=== PATIENT | male | born 1950 | race Caucasian/White ===

== ENCOUNTER 2019-11-05 13:07 | Outpatient (CLI) | payer OTHER, SELFPAY ==
--- NOTE | ~2019-11-05 | XR_ITS ---
EXAMINATION: XR chest 2V EXAM DATE: 11/05/2019 13:50 INDICATION: Shortness of breath. TECHNIQUE: Frontal and lateral projections of the chest obtained and reviewed. Comparison is made to prior examination from 09/01/2019. FINDINGS: The lungs are clear. There are no pleural effusions. The cardiomediastinal silhouette is within normal limits. There is no pneumothorax suspected. Lower thoracic diffuse idiopathic skeleta l hyperostosis. IMPRESSION: No acute cardiopulmonary findings. Reviewed, dictated and finalized at location A. BOX FIXER
--- NOTE | ~2019-11-05 | NM_ITS ---
EXAMINATION: NM lung vent and perfusion DATE: 11/05/2019 13:55 INDICATION: Shortness of breath. TECHNIQUE: The patient breathed 17.3 mCi xenon-133 for ventilation images. 5.2 mCi Tc-99m MAA was adm inistered intravenously for perfusion images. Scintigraphic images of the chest were obtained. COMPARISON: Chest 2 views 11/05/2019 FINDINGS: The single breath ventilation image demonstrates small defects in the upper and lower lobes. Ventilat ion washout images show no retention. Perfusion images show small defects in apicoposterior segment left upper lobe and superior segment left lower lobe. ] IMPRESSION: 1. Low probability for pulmonary embolism. Reviewed, dictated and finalized at location A. N LIFEGUARD
== END 2019-11-05 13:08 | disposition home or self-care (01) ==
LOC: ANHIMG 13:09
PROVIDERS: PCP Family Medicine; Visit Provider Internal Medicine Critical Care Medicine
DX: R06.02 Shortness of breath (principal); J98.4 Other disorders of lung
CPT/HCPCS: 71046; 78582; A9540; A9558

== ENCOUNTER 2019-11-16 11:52 | Outpatient (CLI) | payer OTHER, SELFPAY ==
--- NOTE | ~2019-11-16 | XR_ITS ---
EXAMINATION: XR chest 2V DATE: 11/16/2019 12:18 INDICATION: Shortness of breath TECHNIQUE: PA and lateral views of the chest were obtained. COMPARISON: Chest radiograph dated 11/05/2019 FINDINGS: The lungs remain clear with no focal airspace opacities, pulmonary edema, pleural effusion or pneumot horax. The cardiomediastinal silhouette is normal. Visualized bones and soft tissues are unremarkable . IMPRESSION: 1. No acute cardiopulmonary disease. Reviewed, dictated and finalized at location A. UCTION ASSEMBLY OPERATOR
== END 2019-11-16 11:53 | disposition home or self-care (01) ==
LOC: ANHIMG 11:54
PROVIDERS: PCP Family Medicine; Visit Provider Physician Assistant
DX: R06.02 Shortness of breath (principal); R05 Cough; R50.9 Fever, unspecified
CPT/HCPCS: 71046

== ENCOUNTER 2020-03-02 00:33 | Outpatient (CLI) | payer OTHER, SELFPAY ==
[2020-03-02 17:43] LABS: SARS-CoV-2 RNA PCR Negative
== END 2020-03-02 00:34 | disposition home or self-care (01) ==
LOC: ANHCOVIDDT 00:33
PROVIDERS: PCP Family Medicine; Visit Provider Specialist
DX: Z01.818 Encounter for other preprocedural examination (principal); Z11.59 Encounter for screening for other viral diseases
CPT/HCPCS: 87635; C9803; U0003

== ENCOUNTER 2020-03-04 05:39 | Day surgery (SDC) | payer OTHER, SELFPAY ==
[2020-03-03 15:32] VITALS: BMI 47.5
--- NOTE | 2020-03-04 | ECHO_ITS ---
Patient Info Name: Sharif Todd Age: 69 years : 1950 Gender: Male Ht: 71 in Wt: 340 lbs BSA: 2.86 m2 HR: 76 bpm BP: 216 / 88 mmHg Heart Rhythm: Sinus Rhythm Technical Quality: Good Exam Date: 03/04/2020 10:55 AM Exam Location: [facility] [facility]am Room: ANESTHESIA Patient Status: Outpatient Admit Date: 03/04/2020 Staff Ordering Physician: Kaushik Field MD Nailing Machine Operator Automatic: Emiliana Davey RDCS Attending Provider: Kaushik Field MD Referring Physician: Emir FOX; Exam Type: CA echo transesophageal Study Info Indications - AORTIC VALVE REGURGITATION Complete two-dimensional, color flow and Doppler transesophageal study is performed. Complications No complication. Procedure Details Transesophageal echocardiogram was performed easily and without complication following or pharyngeal benzocaine spray and sedation per the anesthesia service. Summary 1. Transesophageal echocardiogram was performed easily and without complication following or pharyngeal benzocaine spray and sedation per the anesthesia service. 2. No complication. 3. Left ventricular chamber dimension is normal. 4. Systolic contractility is normal. 5. The aortic valve is normal. 6. There is mild to moderate aortic valve regurgitation. 7. Central jet of aortic regurgitation which appears to be directed at the anterior mitral valve leaflet and is [id number] in severity. 8. In no view does the aortic regurgitation appear to be severe. Left Ventricle Left ventricular chamber dimension is normal. Left ventricular systolic function is Empty with an ejection fraction by Biplane Method of Discs of Empty. Systolic contractility is normal. Right Ventricle Right ventricular chamber dimension is normal. Left Atria Left atrial chamber dimension is mildly enlarged. Right Atria Right atrial chamber dimension is normal. Atrial Septum Intact interatrial septum visualized by color flow imaging. Aortic Valve The aortic valve is normal. There is mild to moderate aortic valve regurgitation. Central jet of aortic regurgitation which appears to be directed at the anterior mitral valve leaflet and is [id number] in severity. In no view does the aortic regurgitation appear to be severe. Pulmonic Valve The pulmonic valve is not well visualized. Mitral Valve The mitral valve has normal leaflets. There is trace mitral valve regurgitation. Tricuspid Valve The tricuspid valve leaflets are normal. Pericardium/Pleural The pericardium appears normal. Inferior Vena Cava Not well visualized inferior vena cava with Empty collapse upon inspiration consistent with Empty right atrial pressure, Empty. Aorta The aortic root size at the sinus of Valsalva is normal. Report Signatures
[2020-03-04 09:59] LABS: Hematocrit 43.3 % (42.0-52.0); Hemoglobin 14.8 g/dL (14.0-18.0); Mean Corpuscular HGB Conc 34.2 g/dl (32-36); Mean Corpuscular Hemoglobin 28.7 pg (26-34); Mean Corpuscular Volume 84.1 fl (80-100); Mean Platelet Volume 10.2 fl (7.4-10.4); Platelet Count Result 215 k/mm3 (150-375); Red Blood Count 5.15 M/mm3 (4.6-6.20); Red Cell Distribution Width 13.5 % (11.5-14.5); White Blood Count 5.4 K/mm3 (4.5-10.0)
[2020-03-04 10:11] LABS: Blood Urea Nitrogen 21 mg/dL (9-20); Calcium 9.6 mg/dL (8.4-10.2); Carbon Dioxide 29 mmol/L (22-30); Chloride 102 mmol/L (98-107); Estimated CRCL calculation 134 ml/min; Estimated Glomerular Filt Rate > 60; Glucose 171 mg/dL (75-110); Potassium 3.5 mmol/L (3.4-5.0); Sodium 139 mmol/L (137-145)
[2020-03-04 10:15] VITALS: BP 190/73; PULSE 77; RESP 23; TEMP 37.2; O2SAT 97
--- NOTE | 2020-03-04 10:20 | SUR.PREOP ---
0930-pt presents to the [facility] for a EMA with ANES. PIV started and labs obtained and sent per order. No distress noted. Questions answered and verbalized understanding. Consent signed. Will continue to monitor.
--- NOTE | 2020-03-04 11:07 | WPDANESEPPF ---
Anes - Initial Pre Proc Eval Procedure: Operation Date: 03/04/20 11:00 Proposed Procedures p Trans Esophageal Echo - Kaushik Field MD Date/Time: 03/04/20 11:07 Surgeon: Kaushik Field MD Pre Op Diagnosis: Aortic Valve Regurgitation Patient Data Age: 69 Gender: M Height: 1.8 m Weight: 154.5 kg Last Vital Signs Temp 37.2 C 03/04/20 10:15 Pulse 77 03/04/20 10:15 Resp 23 H 03/04/20 10:15 BP 190/73 H 03/04/20 10:15 Pulse Ox 97 03/04/20 10:15 Allergies Allergy/AdvReac Type Severity Reaction Status Date / Time clarithromycin Allergy Unknown Itching Verified 11/16/19 11:07 Iodinated Contrast Media Allergy Unknown Itching Verified 11/16/19 11:07 iodine Allergy Unknown Itching Verified 11/16/19 11:07 ioversol Allergy Unknown Itching Verified 11/16/19 11:07 Contrast Media Allergy Unknown Itching Uncoded 11/16/19 11:07 Home Medications Medication Instructions Recorded Confirmed Type Daily Multivitamin 1 tablet PO DAILY 08/10/19 03/03/20 History ibuprofen 800 mg PO BID PRN 08/10/19 03/03/20 History chlorthalidone 25 mg tablet 12.5 mg PO DAILY #45 tablet 09/07/19 03/03/20 Rx pantoprazole 40 mg tablet,delayed 40 mg PO QAM #90 tablet 10/02/19 03/03/20 Rx release olmesartan 40 mg tablet 40 mg PO DAILY 11/09/19 03/03/20 History sertraline 50 mg tablet 50 mg PO DAILY #90 tablet 12/01/19 03/03/20 Rx metformin 500 mg tablet,extended 2,000 mg PO DAILY #120 tablet 12/30/19 03/03/20 Rx release 24 hr potassium chloride 20 mEq oral 20 meq PO DAILY #30 each 01/20/20 03/03/20 Rx packet metoprolol succinate 50 mg 50 mg PO DAILY #60 tablet 02/10/20 03/03/20 Rx tablet,extended release 24 hr eplerenone 50 mg tablet 100 mg PO DAILY #60 tablet 02/19/20 03/03/20 Rx nifedipine 30 mg PO DAILY 03/03/20 03/03/20 History Laboratory Tests 03/04/20 03/04/20 09:50 09:50 WBC 5.4 K/mm3 K/mm3 (4.5-10.0) RBC 5.15 M/mm3 M/mm3 (4.6-6.20) Hgb 14.8 g/dL g/dL (14.0-18.0) Hct 43.3 % % (42.0-52.0) MCV 84.1 fl fl (80-100) MCH 28.7 pg pg (26-34) MCHC 34.2 g/dl g/dl (32-36) RDW 13.5 % % (11.5-14.5) Plt Count 215 k/mm3 k/mm3 (150-375) MPV 10.2 fl fl (7.4-10.4) Sodium 139 mmol/L mmol/L (137-145) Potassium 3.5 mmol/L mmol/L (3.4-5.0) Chloride 102 mmol/L mmol/L (98-107) Carbon Dioxide 29 mmol/L mmol/L (22-30) BUN 21 mg/dL H mg/dL (9-20) Creatinine 0.70 mg/dL mg/dL (0.7-1.3) Estim Creat Clear Calc 134 ml/min ml/min Estimated GFR > 60 (59 - ) Glucose 171 mg/dL H mg/dL (75-110) Calcium 9.6 mg/dL mg/dL (8.4-10.2) Patient hx anesthesia problems: none Family hx anesthesia problems: none [facility] Past Medical History Medical History (Updated 11/23/19 @ 10:54 by Anastasia Schaefer PA-C) CAD (coronary artery disease) Cough DDD (degenerative disc disease), lumbar Depression Diverticulosis of intestine, part unspecified, without perforation or abscess with bleeding DM neuro manif type II Essential (primary) hypertension Hx of myocardial infarction Hypertensive heart disease Microalbuminuria due to type 2 diabetes mellitus Morbid obesity with BMI of 50.0-59.9, adult Nonerosive esophageal reflux disease Schatzki's ring Type 2 diabetes mellitus with hyperglycemia Venous insufficiency of both lower extremities Surgical History Surgical History S/P carpal tunnel release Status post arthroscopy of left knee Status post right rotator cuff repair Social History Social History (Updated 11/16/19 @ 11:08 by Melina Robles) Smoking status: Never smoker Second hand tobacco smoke exposure: No Alcohol intake: never Substance use: never Substance use type: does not use Gender identity (if verbalized by the patient): Male Anes - Eval Final PreProcedure Day of Procedur
--- NOTE | 2020-03-04 11:33 | WPDCARDPROC ---
Cardiac Cath Procedure Note Date of procedure:: 03/04/20 Performing physician:: Kaushik Field MD Indication:: Evaluation of aortic valve regurgitation Brief clinical history:: This is a 69-year-old patient followed in the office for significant hypertension. On a recent office visit he was found to have a diastolic murmur compatible with aortic regurgitation. Transthoracic ECHO has suggested that his aortic regurgitation is possibly severe. For further evaluation of this I have recommended a esophageal echocardiogram Procedure Procedure performed:: Transesophageal echocardiogram Sedation/Medication given:: Sedation per the anesthesia service Estimated blood loss:: No blood loss Procedure note:: Patient was in the postanesthesia care unit per the Anesthesiology Service. He was in the supine position and or pharyngeal benzocaine was used for topical anesthesia. Following this he was sedated by the Anesthesia Service and the esophageal echocardiogram was carried out uneventfully. The esophagus was easily intubated and EMA was carried out uneventfully. Following this the probe was removed as was the bite block. He was observed in recovery to regain normal responsiveness and will be taken to the [facility] for full recovery. Procedure was uneventful. Findings:: The left atrium dimension is slightly enlarged. The mitral valve leaflets are normal in appearance. There appears to be a trivial jet of mitral regurgitation by color Doppler. The left ventricle is mildly hypertrophied and of normal dimension contractility is adequate and all segments with a visualized ejection fraction of 50-55%. The aortic valve is a normal-appearing trileaflet structure which is thin and pliable. The aortic root is not enlarged. Color Doppler interrogation of the aortic valve demonstrates a central jet of aortic regurgitation which appears to be somewhat eccentrically directed at the anterior mitral valve leaflet. Multiple projections were taken to assess this jet and a either appears to be mild or moderate. In no view did appear to be more than moderate. The right-sided chambers are unremarkable in appearance the tricuspid valve looks normal the pulmonic valve is difficult to visualize. There is no pericardial fluid. The interatrial septum is intact with no color Doppler evidence of shunting. Conclusion:: Anatomically normal trileaflet aortic valve with [id number] aortic regurgitation. The jet appears to be somewhat eccentrically directed at the anterior mitral valve leaflet but in no few appears to be severe Normal left ventricular size and contractility Trivial mitral regurgitation Kaushik Field MD [facility]
[2020-03-04 11:35] VITALS: BP 179/62; PULSE 67; RESP 14; O2SAT 96
[2020-03-04 11:45] VITALS: BP 176/68; PULSE 65; RESP 15; O2SAT 95
[2020-03-04 12:00] VITALS: BP 191/67; PULSE 67; RESP 14; O2SAT 96
--- NOTE | 2020-03-04 12:08 | SUR.OPER ---
Please see ANES note for medications and vitals. Thank you!
[2020-03-04 12:15] VITALS: BP 200/70; PULSE 68; RESP 18; O2SAT 96
[2020-03-04 12:30] VITALS: BP 195/72; PULSE 66; RESP 16; O2SAT 98
--- NOTE | 2020-03-04 13:50 | SUR.PHASEII ---
1300-pt given D/C orders and instructions. Questions answered and verbalized understanding. PIV removed intact. Taken via wheelchair to waiting vehicle. No distress noted or verbalized at time of departure.
== END 2020-03-04 13:00 | disposition home or self-care (01) ==
PROVIDERS: PCP Family Medicine; Visit Provider Specialist
PROC: (CPT 93312; principal; 2020-03-04 11:00)
DX: I35.1 Nonrheumatic aortic (valve) insufficiency (principal); I25.10 Atherosclerotic heart disease of native coronary artery without angina pectoris; I10 Essential (primary) hypertension; I25.2 Old myocardial infarction; R80.8 Other proteinuria; E11.9 Type 2 diabetes mellitus without complications; I87.2 Venous insufficiency (chronic) (peripheral); E66.01 Morbid (severe) obesity due to excess calories; Z68.42 Body mass index [BMI] 45.0-49.9, adult; Z79.84 Long term (current) use of oral hypoglycemic drugs
CPT/HCPCS: 36415; 80048; 85027; 93312; 93320; 93325; J2704; J7040

== ENCOUNTER 2020-03-31 10:26 | Outpatient (CLI) | payer OTHER, SELFPAY ==
[2020-03-31 10:50] LABS: Add Urine Microscopic? YES; Appearance Urine Clear (Clear); Bacteria Urine Trace /hpf; Bilirubin Urine Negative (Negative); Blood Urine 1+ (Negative); Color Urine Yellow (Yellow); Glucose Urine UA 3+ mg/dL (Negative); Ketones Urine Negative (Negative); Leukocyte Esterase Ur 3+ LEU/UL (NEGATIVE); Mucus Urine Rare /lpf; Nitrate Urine Negative (Negative); Protein Urine 2+ mg/dL (Negative); Specific Grav Ur 1.016 (1.001-1.035); Squamous Epithelial Cell Urine Occasional /hpf (Few); WBC Urine >75 /hpf (0-3)
== END 2020-03-31 10:27 | disposition home or self-care (01) ==
PROVIDERS: PCP Family Medicine; Visit Provider Physician Assistant
DX: N39.0 Urinary tract infection, site not specified (principal)
CPT/HCPCS: 81001; 87077; 87086; 87088; 87186

== ENCOUNTER 2020-04-09 21:44 | Inpatient (IN) | payer OTHER, SELFPAY ==
--- NOTE | ~2020-04-09 | US_ITS ---
EXAMINATION:US venous doppler LE BI INDICATION:Elevated d-dimer TECHNIQUE: Multiple grayscale, color flow and Doppler images of the bilateral lower extremity deep ve nous systems were obtained and reviewed. COMPARISON:12/28/2016 FINDINGS: The common femoral, superficial femoral and popliteal veins demonstrate normal respiratory variation, augmentation and compressibility. Color flow is also seen within the posterior tibial, pe roneal, greater saphenous and profunda veins. IMPRESSION: 1: No lower extremity deep venous thrombosis. Reviewed, dictated and finalized at location B.
--- NOTE | ~2020-04-09 | NM_ITS ---
EXAMINATION: NM pulmonary perfusion DATE: 04/11/2020 10:49 INDICATION: Chest pain and shortness of breath. Elevated d-dimer. TECHNIQUE: 5.5 mCi Tc-99m MAA was administered IV. Scintigraphic images of the chest were obtained. COMPARISON: Chest radiograph dated 04/10/2020 FINDINGS: There is relatively homogeneous perfusion throughout the lungs. No discrete perfusion defect identif ied. IMPRESSION: 1. Low probability for pulmonary embolism. Reviewed, dictated and finalized at location A.
--- NOTE | ~2020-04-09 | CT_ITS ---
EXAMINATION: CT abdomen pelvis wo con DATE: 04/09/2020 23:40 INDICATION: Fever. Recurrent urinary tract infection. Lactic acidosis. TECHNIQUE: Computed tomography (CT) of the abdomen and pelvis was performed without intravenous contr ast. Automated exposure control and iterative reconstruction technique were employed. The dose-length product was 1628.73 mGy-cm. COMPARISON: CT pelvis 05/02/2012 FINDINGS: The visualized portions of the lung bases demonstrate mild atelectasis. No pleural effusion . The heart size is normal. No pericardial effusion. There are cysts in the liver measuring up to 1.6 cm. The gallbladder, spleen, pancreas, adrenal glands, and left kidney are normal. There is an 11 mm cyst in right kidney. There is a 4 mm stone in right kidney. The prostate is mildly enlarged. There is diverticulosis of the colon without evidence of diverticulitis. There are no dilated loops of bess l. The appendix is normal. There are no pathologically enlarged lymph nodes. There is no free intrape ritoneal fluid. There is severe lower lumbar spondylosis. There are bridging endplate osteophytes at multiple levels in the thoracic spine, consistent with diffuse idiopathic skeletal hyperostosis (DISH ). IMPRESSION: 1. 4 mm nonobstructing right kidney stone. Reviewed, dictated and finalized at location A.
--- NOTE | ~2020-04-09 | XR_ITS ---
EXAMINATION: XR chest 1V portable DATE: 04/10/2020 10:06 INDICATION: Chest pain. Shortness of breath. TECHNIQUE: A single frontal view of the chest was obtained. COMPARISON: Chest 2 views 11/16/2019, CT abdomen and pelvis 04/09/2020 FINDINGS: The chest demonstrates clear lungs without pneumonia, pleural effusion, or pneumothorax. Th e heart size is normal. IMPRESSION: 1. No acute cardiopulmonary disease. Reviewed, dictated and finalized at location A.
[2020-04-09 21:48] VITALS: BP 155/62; PULSE 95; RESP 18; TEMP 37.2; O2SAT 97
[2020-04-09 22:18] LABS: Basophils Percent Auto 0.2 % (0.2-1.2); Eosinophils Percent Auto 0.1 % (0-4.4); Hemoglobin 14.3 g/dL (14.0-18.0); Immature Granulocyte Absolute 0.05 K/mm3 (0.00-0.031); Immature Granulocyte Percent A 0.4 % (0-0.5); Lymphocytes Absolute Auto 1.21 K/mm3 (0.9-3.2); Lymphocytes Percent Auto 8.5 % (18.3-44.2); Mean Corpuscular Hemoglobin 28.5 pg (26-34); Mean Corpuscular Volume 83.8 fl (80-100); Mean Platelet Volume 9.4 fl (7.4-10.4); Monocytes Absolute Auto 0.7 K/mm3 (0.1-0.6); Monocytes Percent Auto 4.8 % (2.6-8.5); Neutrophils Absolute Auto 12.2 K/mm3 (1.3-6.7); Platelet Count Result 295 k/mm3 (150-375); Red Blood Count 5.01 M/mm3 (4.6-6.20); Red Cell Distribution Width 13.4 % (11.5-14.5); White Blood Count 14.2 K/mm3 (4.5-10.0)
[2020-04-09 22:29] LABS: Lactic Acid 2.9 mmol/L (0.7-2.1)
[2020-04-09 22:31] LABS: Alanine Aminotransferase 24 U/L (4-50); Albumin Level 4.1 g/dL (3.5-5.1); Alkaline Phosphatase 79 U/L (38-126); Aspartate Amino Transferase 26 U/L (17-59); Bilirubin,Total 0.8 mg/dL (0.2-1.3); Blood Urea Nitrogen 18 mg/dL (9-20); Calcium 9.5 mg/dL (8.4-10.2); Carbon Dioxide 27 mmol/L (22-30); Chloride 94 mmol/L (98-107); Estimated Glomerular Filt Rate > 60; Glucose 304 mg/dL (75-110); Potassium 3.4 mmol/L (3.4-5.0); Sodium 132 mmol/L (137-145)
--- NOTE | 2020-04-09 23:34 | ED.ABDPAIN ---
HPI - Abdominal Pain General Chief Complaint: Urogenital-Male Stated Complaint: Ongoing UTI Time Seen by Provider: 04/09/20 23:25 History of Present Illness HPI narrative: Patient presents from home for recurrent UTI and fever. He has been treated for UTI for the last 2 weeks outpatient. He spiked fever again today 101, and he says he just feels terrible. He only has slight abdominal pain, under the ribs., He has recurrent nausea but no vomiting. He does not know if his prostate is enlarged. He has a history of diabetes and hypertension. 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 Does not smoke cigarettes,, drink alcohol, or do drugs. MD elicited complaint: abdominal pain Pertinent past history: past UTI Onset (ago): week(s) Pain Consistency: constant Severity: moderate Related Data Home Medications Medication Instructions Recorded Confirmed Daily Multivitamin 1 tablet PO DAILY 08/10/19 03/03/20 olmesartan 40 mg tablet 40 mg PO DAILY 11/09/19 03/03/20 nifedipine 30 mg PO DAILY 03/03/20 03/03/20 Allergies Allergy/AdvReac Type Severity Reaction Status Date / Time clarithromycin Allergy Unknown Itching Verified 03/14/20 09:34 Iodinated Contrast Media Allergy Unknown Itching Verified 03/14/20 09:34 iodine Allergy Unknown Itching Verified 03/14/20 09:34 ioversol Allergy Unknown Itching Verified 03/14/20 09:34 Contrast Media Allergy Unknown Itching Uncoded 11/16/19 11:07 Review of Systems Review of Systems: Narrative: CONSTITUTIONAL: Denies fever, chills, or sweats. EYES: Denies visual changes, redness, or discharge. ENT: Denies rhinorrhea, congestion, sore throat, or otalgia. CARDIOVASCULAR: Denies chest pain, palpitations, or edema. RESPIRATORY: Denies cough or dyspnea. GASTROINTESTINAL: He has abdominal pain, and nausea, but not vomiting, or diarrhea. GENITOURINARY: Denies dysuria or hematuria. SKIN: Denies rash or itching. MUSCULOSKELETAL: Denies back pain, joint pain, or myalgia. NEUROLOGIC: Denies headache, numbness, or weakness. . [facility] Past Medical History Medical History Aortic regurgitation CAD (coronary artery disease) Cough DDD (degenerative disc disease), lumbar Depression Diverticulosis of intestine, part unspecified, without perforation or abscess with bleeding DM neuro manif type II Essential (primary) hypertension Hx of myocardial infarction Hypertensive heart disease Microalbuminuria due to type 2 diabetes mellitus Morbid obesity with BMI of 50.0-59.9, adult Nonerosive esophageal reflux disease Schatzki's ring Type 2 diabetes mellitus with hyperglycemia Venous insufficiency of both lower extremities Surgical History Surgical History S/P carpal tunnel release Status post arthroscopy of left knee Status post right rotator cuff repair Social History Social History Smoking status: Never smoker Second hand tobacco smoke exposure: No Alcohol intake: never Substance use: never Substance use type: does not use Gender identity (if verbalized by the patient): Male Exam Narrative: Exam Narrative: GENERAL: Well-appearing, well-nourished, and in no acute distress. Morbid obesity. Beautiful blue eyes. HEAD: Normocephalic, atraumatic. EYES: PERRLA and EOMI. ENT: Nares clear, no rhinorrhea or epistaxis. Mucous membranes moist. NECK: Supple. CHEST: Clear to auscultation. No respiratory distress. HEART: Regular rate and rhythm. No murmur heard. Normal peripheral pulses. ABDOMEN: Soft, nontender, nondistended, normal active bowel sounds. EXTREMITIES: Normal range of motion. No edema. SKIN: Warm, dry, no rash. NEURO: No focal deficits. Alert and oriented x3. PSYCH: Normal mood and affect. Course Consultations Consultation #1: Discussed the case with Dr. Cui, and she accepts for admission. Date: 04/10/20 Time: 02:01 Vital Signs Vital sign
[2020-04-09] MEDS: METOCLOPRAMIDE HCL INJ 10 MG/2 ML VIAL IV PUSH (23:55)
[2020-04-09] MEDS: SODIUM CHLORIDE 0.9% IV 1,000 ML 999 ML IV CONT (23:55)
[2020-04-09] MEDS: FAMOTIDINE 20 MG/2 ML VIAL IV PUSH (23:55)
[2020-04-10] VITALS (16 sets, daily range): BP systolic 126–181; BP diastolic 60–78; PULSE 76–107; RESP 16–20; TEMP 36.9–38.5; O2SAT 94–98; BMI 46.6
[2020-04-10] MEDS: INSULIN HUMAN REGULAR (*BKC) 100 UNITS/ML 10 UNITS SUB-Q (00:13)
[2020-04-10 01:13] LABS: Glucose Point of Care 216 (65-105)
[2020-04-10 01:32] LABS: Add Urine Microscopic? YES; Appearance Urine Clear (Clear); Bilirubin Urine Negative (Negative); Blood Urine Negative (Negative); Color Urine Yellow (Yellow); Glucose Urine UA 2+ mg/dL (Negative); Ketones Urine Negative (Negative); Leukocyte Esterase Ur Negative LEU/UL (Negative); Mucus Urine Few /lpf; Nitrate Urine Negative (Negative); Protein Urine 2+ mg/dL (Negative); RBC Urine 0-2 /hpf (0-2); Squamous Epithelial Cell Urine Rare /hpf (Few); Urobilinogen Urine Negative mg/dL (<2.0)
--- NOTE | 2020-04-10 02:12 | ADMGEN ---
This patient, Sharif Todd, was admitted to Medical Room [facility]- at 0210. Patient/family oriented to hospital policies and general routines including ID bracelet, bed and alarms, visiting hours, pain management, procedures, bathroom and other care routines, personal items, smoking policy, room service/diet, and visiting hours. Valuables list has been completed. Information on how to activate the Rapid Response Team has been discussed. Patient/Family are encouraged to report perceived risks to care and to ask questions if they do not understand what they are told or what they should do.
[2020-04-10] MEDS: SODIUM CHLORIDE 0.9% IV 1,000 ML 125 ML IV CONT ×3 (03:14→19:37)
--- NOTE | 2020-04-10 05:20 | PM.IMHP ---
H&P: HPI History of Present Illness Chief complaint: Fever, recent UTI Narrative: Date and time patient contact: 04/10/2020 at 5:20 a.m. Sharif Todd is a 69 year old male with a past medical history of morbid obesity, hztj-ge-vwcdqnws aortic regurgitation, diabetes mellitus, and frequent urinary tract infections who presented to the ER with fever. The patient initially presented to urgent care about 2 weeks ago due to fevers, increased urinary frequency and urgency. Culture obtained on 03/31/2020 obtained which grew out E coli [id number] colonies. He had been sent home with a prescription for Levaquin. The E coli in his culture was resistant to the Levaquin in his antibiotics were switched to nitrofurantoin. He followed up and his primary care physician's office on the he had had some improvement in symptoms but was still having some urgency and frequency issues. He was sent home with another 5 days of nitrofurantoin. Reported that he had 3 days without fever and then on the evening of the spiked a fever to 101?. He has had decreased appetite and generally ill feeling throughout the whole course of this illness. He has been having some mild headache. He has chronic shortness of breath for several years that is unchanged from baseline. He has not been having any cough or congestion. He has been having some nausea but no vomiting. He has not noticed any hematuria or dysuria. He has not had any recent ill contacts or COVID-19 exposure. He has had normally formed bowel movements without hematochezia or melena. Review of Systems Review of Systems: Narrative: 12 systems were reviewed with pertinent positives and negatives per HPI. Except as documented in the HPI, all other systems were reviewed and are negative. [facility] Past Medical History Medical History (Updated 04/10/20 @ 08:37 by Keila Cui DO) Aortic regurgitation [id number] regurgitation noted on transesophageal echocardiogram February [address] Field Bilateral cataracts Maturing CAD (coronary artery disease) Cardiac catheterization October 2018 which demonstrated 20% stenosis a branch of the LAD otherwise had normal coronary arteries DDD (degenerative disc disease), lumbar Depression Diabetic peripheral neuropathy Diverticulosis of intestine, part unspecified, without perforation or abscess with bleeding With last colonoscopy: 2014 Essential (primary) hypertension Hypertensive heart disease Microalbuminuria due to type 2 diabetes mellitus Diabetic nephropathy Morbid obesity with BMI of 50.0-59.9, adult Nonerosive esophageal reflux disease Noted on EGD from July 2019 Obstructive sleep apnea Mild per the patient's report. He has never used CPAP. Schatzki's ring Noted on EGD performed by Dr. Hunter July 2019 Venous insufficiency of both lower extremities Surgical History Surgical History S/P carpal tunnel release Status post arthroscopy of left knee Status post right rotator cuff repair Family History Family History (Updated 04/10/20 @ 08:31 by Keila Cui DO) Father Diabetes mellitus Lung cancer Mother Hypertension Alzheimer's dementia Sibling Hypertension Renal cancer Social History Social History (Updated 04/10/20 @ 08:32 by Keila Cui DO) Social History: Primary care physician: Dr. Nils Alvarenga Code status: Full code Smoking status: Never smoker Second hand tobacco smoke exposure: No Alcohol intake: never Substance use: never Substance use type: does not use Living arrangements: alone Additional living arrangements comments: He is single and has no children. 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 Gender identity (if verbalized by the patient): Male Spiritual care concerns: No M
[2020-04-10 05:29] LABS: Hematocrit 36.8 % (42.0-52.0); Hemoglobin 12.6 g/dL (14.0-18.0); Mean Corpuscular HGB Conc 34.2 g/dl (32-36); Mean Corpuscular Hemoglobin 28.7 pg (26-34); Mean Corpuscular Volume 83.8 fl (80-100); Mean Platelet Volume 9.3 fl (7.4-10.4); Platelet Count Result 261 k/mm3 (150-375); Red Blood Count 4.39 M/mm3 (4.6-6.20); Red Cell Distribution Width 13.4 % (11.5-14.5); White Blood Count 11.9 K/mm3 (4.5-10.0)
[2020-04-10 05:43] LABS: Blood Urea Nitrogen 19 mg/dL (9-20); Calcium 8.8 mg/dL (8.4-10.2); Carbon Dioxide 30 mmol/L (22-30); Chloride 95 mmol/L (98-107); Estimated CRCL calculation 117 ml/min; Estimated Glomerular Filt Rate > 60; Glucose 206 mg/dL (75-110); Potassium 3.2 mmol/L (3.4-5.0); Sodium 133 mmol/L (137-145)
[2020-04-10 05:46] LABS: Lactic Acid Reflex 1.7 mmol/L (0.7-2.1)
--- NOTE | 2020-04-10 06:29 | PCDIET ---
Spoke with pt regarding EPLERENONE. That we did not carry and to see if he could have someone bring it from home. He said he can have someone bring it in.
[2020-04-10 07:20] LABS: Magnesium 1.8 mg/dL (1.6-2.3)
[2020-04-10] MEDS: ACETAMINOPHEN 325 MG TABLET 650 MG PO ×2 (07:28→15:08)
[2020-04-10] MEDS: POTASSIUM CHLORIDE 20 MEQ TABLET 40 MEQ PO (07:31)
[2020-04-10 07:45] LABS: Glucose Point of Care 188 (65-105)
--- NOTE | 2020-04-10 08:58 | ECG_ITS ---
Measurements Intervals [place] Rate: 76 P: 38 ID: [id number] QRS: -38 QRSD: 109 T: 140 QT: 398 QTc: 448 Interpretive Statements SINUS RHYTHM WITH FIRST DEGREE AV BLOCK LEFT AXIS DEVIATION LEFT VENTRICULAR HYPERTROPHY WITH ST-T CHANGES CANNOT RULE OUT SEPTAL INFARCT, AGE INDETERMINATE ABNORMAL ECG Electronically Signed On 04-10-2020 9:30:55 CDT by Evan Salcido D.O.
--- NOTE | 2020-04-10 08:58 | PM.IMPN ---
Progress Note: A&P Assessment and Plan (1) Sepsis: Code(s): A41.9 - Sepsis, unspecified organism Status: Acute Assessment and Plan: The patient wWas found to be septic with leukocytosis and lactic acidosis in the setting of a urinary tract infection The patient's vitals have been stable, afebrile, normal blood pressure, non tachycardic, normal respiratory rate and oxygenation. Leukocytosis improved today from [id number] after IV ceftriaxone was started for UTI. Blood cultures and urine cultures pending Continue monitoring patient's symptoms and vital signs. Continue IV antibiotics. (2) UTI (urinary tract infection): Qualifiers: Hematuria presence: without hematuria Urinary tract infection type: site unspecified Qualified Code(s): N39.0 - Urinary tract infection, site not specified Code(s): N39.0 - Urinary tract infection, site not specified Status: Acute Assessment and Plan: Patient was found have a urinary tract infection on 03/31/2020 positive for E coli. He was treated with Macrobid but continued to have urinary symptoms and systemic symptoms. He came into the ER for further evaluation of continued symptoms. The patient has been started on Rocephin based on recent urine culture results. Repeat urine culture and blood cultures are pending. The patient's urine at this time does not appear to be grossly infected but given his recent symptoms and persistent fever I suspect he has a partially treated urinary tract infection versus prostatitis Continue monitoring patient's symptoms. Continue IV antibiotics. Continue monitoring culture results. (3) Chest pain: Code(s): R07.9 - Chest pain, unspecified Status: Acute Assessment and Plan: Upon my examination patient was tell me about his substernal chest pain and worsening dyspnea on exertion when walking around his house. EKG was ordered and I compared it to his EKG from 09/12/2018 which shows he has new T wave inversions in I and aVL, otherwise EKG is similar to prior showing sinus rhythm with first degree AV block, left LVH. Troponin was ordered and was elevated at 0.057. Repeat at 3 and 6 hours. Cardiology was consulted, Dr. Field, who the patient follows up with as an outpatient in the office and who would know him. Started the pt on Tele Will also order D-dimer and if elevated will get a CTA of his chest to rule out any acute PEs. Continue monitoring and cardiology's input is greatly appreciated. (4) Acidosis, lactic: Code(s): E87.2 - Acidosis Status: Resolved Assessment and Plan: Lactic acid on arrival was 2.5, and repeat lactic was normal at 1.7. The patient received 1 L normal saline bolus in the ER and has been continued on maintenance IV fluids. His lactic acidosis has resolved. Continue monitoring and if any worsening symptoms will repeat lab. (5) Type 2 diabetes mellitus with hyperglycemia: Code(s): E11.65 - Type 2 diabetes mellitus with hyperglycemia Status: Acute Assessment and Plan: Will continue patient's home metformin given that is lactic acidosis has resolved. Will place patient on moderate sliding scale insulin with Accu-Cheks a.c. HS. I suspected least a portion of the patient's hyperglycemia is due to his acute infection. Will check a hemoglobin A1c with a.m. labs Time Spent With Patient Time with patient: 25 - 35 minutes Subjective Date/time seen: 04/10/20 08:58 Interval history: Date of service 04/10/2020: The patient states he came to the emergency room due to intermittent episodes of feeling weak, fatigued and fevers around 101?. Patient states symptoms started and he was diagnosed with a urinary tract in
[2020-04-10] MEDS: metFORMIN HCL XR 500 MG TAB.SR.24H 2000 MG PO (09:31)
[2020-04-10] MEDS: ENOXAPARIN 40 MG/0.4 ML SYRINGE SUB-Q ×2 (09:32→20:35)
[2020-04-10] MEDS: PANTOPRAZOLE 40 MG TABLET PO (09:33)
[2020-04-10] MEDS: METOPROLOL SUCCINATE EXT REL 50 MG TABCR PO (09:33)
[2020-04-10] MEDS: MULTIVITAMINS THERAPEUTIC TAB (*BKC) 1 TABLET PO (09:33)
[2020-04-10] MEDS: OLMESARTAN MEDOXOMIL 20 MG TABLET 40 MG PO (09:33)
[2020-04-10] MEDS: SERTRALINE HCL 50 MG TABLET PO (09:33)
[2020-04-10] MEDS: NIFEdipine 30 MG TAB.ER.24 PO (09:34)
--- NOTE | 2020-04-10 09:35 | PC.NURSE ---
Called pharmacy and requested 0900 potassium chloride 20MEQ powder be sent to floor for administration.
[2020-04-10 10:00] LABS: Troponin I 0.057 ng/mL (0.000-0.034)
[2020-04-10] MEDS: POTASSIUM CHLORIDE 20 MEQ PACKET (FOR LIQUID) PO (10:15)
--- NOTE | 2020-04-10 11:08 | PC.NURSE ---
Patient's home medication elperenone 50MG tablets sent to pharmacy for verification.
[2020-04-10 11:37] LABS: Glucose Point of Care 195 (65-105)
--- NOTE | 2020-04-10 12:40 | PHAR ---
The patient's home med of Eplerenone 50mg has been verified.
[2020-04-10 12:56] LABS: D Dimer 1.03 ug/mL (<0.48)
[2020-04-10 13:16] LABS: Troponin I 0.051 ng/mL (0.000-0.034)
--- NOTE | 2020-04-10 14:17 | PC.NURSE ---
Addendum entered by Vicky Staton RN 04/10/20 15:21: Patient's room is two doors down from nurse's station, staff was at nurse's station at 1330 when patient reported he had unwitnessed fall. No staff heard fall or patient yelling out from room for assistance. Patient did not use call light to ask for help prior to attempting to ambulate to the restroom. Original Note: Called and informed the house mover helper, Yaakov Easley, the provider, Di LERMA and the charge nurse Carolyn Ramon, that the patient reported having an unwitnessed fall in the room. Patient reports having felt weak but got up to unplug his IV from the wall to go to the bathroom. In the process of going to the bathroom began urinating on himself and per patient had an unwitnessed fall. The patient denies hitting his head during the fall but does report that he fell to his bottom. Patient denies any pain at this time or dizziness/lightheadedness at the time of fall. The patient reported yelling out from room for help with no members of the staff coming to the bedside for assistance when he had fallen. The patient reports being able to get up on his own from the floor and get back into the bed. The patient was found resting comfortably in the bed when the Fracisco BROWN went in to perform vitals at 1415, which is when the patient reported to staff the unwitnessed fall that occurred at 1330 according to the patient.
--- NOTE | 2020-04-10 15:43 | PM.CNCAR ---
Assessment and Plan Additional Plan Symptoms of intermittent chest discomfort in this gentleman was hospitalized with febrile illness felt to have a urinary infection. Angiographically he is known to have non diseased coronary arteries. He does have mild to moderate aortic valve regurgitation with normal left ventricular dimensions and contractility. This was identified and physical exam in the office as I mentioned above and further evaluated with a transesophageal echo last month. At this time there do not appear to be any cardiac recommendations to make. Hopefully his gram-negative infection will be resolved relatively quickly. It would be reasonable to consider urology consultation will defer that decision to the primary service Kaushik Field MD [facility] History of Present Illness History of Present Illness Consult date/time: Date of service: 04/10/20 15:43 Consult reason: chest pain Reason For Visit: Fever, recent UTI Narrative: This is a 69-year-old man who I know from office follow-up of hypertension and aortic valve disease. He is hospitalized with a febrile illness and felt to have a urinary infection related to EHe has been feeling unwell for 2 or 3 weeks and was on some oral antibiotics and eventually was hospitalized for more aggressive treatment. Does not stay that he has a history of the recurrent urinary infections and has not seen a urologist in consultation response to this at this point. He does have a fever of 100-101 degrees and feels washed out and and weak he is not reporting obvious dysuria. He does not report fever and shaking chills. I was consulted to see him because apparently he was also reporting symptoms of intermittent chest tightness along with this illness. This is a gentleman who has longstanding hypertension. He became my patient within the past couple of years because he for some reason wanted a manager social media to manage his blood pressure. He has been kept on a multi-drug regimen and in the last year or so his blood pressure has been reasonably well controlled although not ideal. His brother principal comorbidities morbid obesity. When I saw this patient in the office he also had a diastolic murmur compatible with aortic valve regurgitation. For further evaluation of this I performed a transesophageal echocardiogram on him last month as an outpatient. He has eccentric jet of AI which is mild in most views, no more than moderate. His left ventricular size and contractility were normal. For that reason there was no intention of referring him for surgical treatment of his aortic valve disease at this time. He does have a history as stated above of some intermittent chest discomfort. A previous manager social media about 1 year ago in [place] performed a coronary angiogram on him which was unremarkable. Review of Systems Constitutional: Constitutional: Reports body ache(s) and Reports fatigue Comments: Fever as per HPI Eyes: Eyes: Reports no additional eye complaints ENT: Reports system reviewed and no additional complaints, except as documented Cardiovascular: Cardiovascular: Reports as per HPI and Reports no additional cardiovascular complaints Respiratory: Respiratory: Reports no additional respiratory complaints Gastrointestinal: Gastrointestinal: Reports no additional gastrointestinal complaints Genitourinary: Genitourinary: Reports as per HPI Musculoskeletal: Musculoskeletal: Reports no additional musculoskeletal complaints Integumentary/Breasts: Skin/Breast: Reports system reviewed and no additional complaints, except as docu Neurologic: Reports system reviewed and no additional complaints, except as documented Psychiatric: Psychiatric: Reports no additional psychiatric complaints Endocrine: Endocrine: Reports no additional endocrine complaints Hematologic/Lymphatic: Hematologic/Lymphatic: Reports no additional hematologic/lymphatic complaints Allergic/Immunologic: Allergic/Immunologic:
[2020-04-10 15:55] LABS: Troponin I 0.065 ng/mL (0.000-0.034)
[2020-04-10] MEDS: ERTAPENEM 1 GM/NS 50 ML 1 GM/50 ML BAG IVPB (16:02)
[2020-04-10] MEDS: IBUPROFEN 400 MG TABLET PO (18:04)
[2020-04-10 18:09] LABS: Glucose Point of Care 185 (65-105)
[2020-04-10 20:33] LABS: Glucose Point of Care 207 (65-105)
[2020-04-11] VITALS (14 sets, daily range): BP systolic 129–164; BP diastolic 55–62; PULSE 75–87; RESP 16–20; TEMP 36.2–38.8; O2SAT 95–97
[2020-04-11] MEDS: ACETAMINOPHEN 325 MG TABLET 650 MG PO ×2 (02:55→19:49)
[2020-04-11] MEDS: SODIUM CHLORIDE 0.9% IV 1,000 ML 125 ML IV CONT ×3 (02:57→19:50)
[2020-04-11 05:45] LABS: Basophils Percent Auto 0.2 % (0.2-1.2); Eosinophils Percent Auto 0.1 % (0-4.4); Hematocrit 35.6 % (42.0-52.0); Hemoglobin 11.9 g/dL (14.0-18.0); Immature Granulocyte Absolute 0.06 K/mm3 (0.00-0.031); Immature Granulocyte Percent A 0.4 % (0-0.5); Lymphocytes Absolute Auto 1.13 K/mm3 (0.9-3.2); Lymphocytes Percent Auto 8.2 % (18.3-44.2); Mean Corpuscular HGB Conc 33.4 g/dl (32-36); Mean Corpuscular Hemoglobin 28.3 pg (26-34); Mean Corpuscular Volume 84.8 fl (80-100); Mean Platelet Volume 9.4 fl (7.4-10.4); Monocytes Absolute Auto 0.9 K/mm3 (0.1-0.6); Monocytes Percent Auto 6.2 % (2.6-8.5); Neutrophils Absolute Auto 11.7 K/mm3 (1.3-6.7); Neutrophils Percent Auto 84.9 % (45.5-73.1); Platelet Count Result 264 k/mm3 (150-375); Red Cell Distribution Width 13.6 % (11.5-14.5); White Blood Count 13.8 K/mm3 (4.5-10.0)
[2020-04-11 05:56] LABS: Hemoglobin A1C 7.5 % (<5.7)
[2020-04-11 06:01] LABS: Blood Urea Nitrogen 14 mg/dL (9-20); Calcium 8.2 mg/dL (8.4-10.2); Carbon Dioxide 29 mmol/L (22-30); Chloride 95 mmol/L (98-107); Estimated CRCL calculation 132 ml/min; Estimated Glomerular Filt Rate > 60; Glucose 184 mg/dL (75-110); Magnesium 1.7 mg/dL (1.6-2.3); Potassium 2.9 mmol/L (3.4-5.0); Sodium 134 mmol/L (137-145)
[2020-04-11 07:54] LABS: Glucose Point of Care 192 (65-105)
[2020-04-11] MEDS: metFORMIN HCL XR 500 MG TAB.SR.24H 2000 MG PO (08:03)
[2020-04-11] MEDS: OLMESARTAN MEDOXOMIL 20 MG TABLET 40 MG PO (08:03)
[2020-04-11] MEDS: POTASSIUM CHLORIDE 20 MEQ PACKET (FOR LIQUID) PO (08:03)
[2020-04-11] MEDS: POTASSIUM CHLORIDE 20 MEQ TABLET 60 MEQ PO (08:03)
[2020-04-11] MEDS: ENOXAPARIN 40 MG/0.4 ML SYRINGE SUB-Q ×2 (08:04→21:07)
[2020-04-11] MEDS: MULTIVITAMINS THERAPEUTIC TAB (*BKC) 1 TABLET PO (08:04)
[2020-04-11] MEDS: NIFEdipine 30 MG TAB.ER.24 PO (08:05)
[2020-04-11] MEDS: MAGNESIUM SULF 2 GM/WATER 50ML 2 GM/50 ML BAG IVPB (08:05)
[2020-04-11] MEDS: METOPROLOL SUCCINATE EXT REL 50 MG TABCR PO (08:05)
[2020-04-11] MEDS: SERTRALINE HCL 50 MG TABLET PO (08:05)
[2020-04-11] MEDS: PANTOPRAZOLE 40 MG TABLET PO (08:05)
[2020-04-11 08:12] LABS: D Dimer 0.84 ug/mL (<0.48)
[2020-04-11 08:19] LABS: Lactate Dehydrogenase 454 U/L (313-618)
--- NOTE | 2020-04-11 09:56 | PCOTNOTE ---
Attempted OT evaluation, but unable to complete as patient leaving room for test in nuclear medicine. Will attempt again later.
--- NOTE | 2020-04-11 09:58 | PCPTNOTE ---
Attempted PT evaluation. PT headed down to nuclear medicine. Will attempt at a later time.
--- NOTE | 2020-04-11 10:00 | PC.NURSE ---
To [facility] per stretcher, IV intact
--- NOTE | 2020-04-11 10:57 | PC.NURSE ---
Returned from [place] per stretcher.
--- NOTE | 2020-04-11 11:18 | PM.IMPN ---
Progress Note: A&P Assessment and Plan (1) Sepsis: Code(s): A41.9 - Sepsis, unspecified organism Status: Acute Assessment and Plan: The patient was found to be septic with leukocytosis and lactic acidosis in the setting of a urinary tract infection The patient continues to have intermittent fevers, yesterday evening and last night at 101 ?. The patient's vitals have otherwise been stable, normal blood pressure, non tachycardic, normal respiratory rate and oxygenation. Leukocytosis became worse today from [id number] I discussed the patient's case with Dr. Encinas who recommended discontinuing antibiotics since his urinalysis on arrival was negative for any acute abnormality, urine culture came back negative today, the patient may have a viral illness and fever of unknown origin Blood cultures and urine cultures pending I did order further workup to include ferritin, LDH which were normal. CRP was elevated at 8. Repeat D-dimer decreased from 1-0.8. Rheumatoid factor was negative. HIV testing was negative. Pending results on ODELL and protein electrophoresis. CT abdomen showed no acute abnormality. Consult placed to Infectious Disease for further input on recommendations for antibiotics versus viral workup Continue monitoring patient's symptoms and vital signs. Continue IV antibiotics. (2) UTI (urinary tract infection): Qualifiers: Hematuria presence: without hematuria Urinary tract infection type: site unspecified Qualified Code(s): N39.0 - Urinary tract infection, site not specified Code(s): N39.0 - Urinary tract infection, site not specified Status: Acute Assessment and Plan: Patient was found have a urinary tract infection on 03/31/2020 positive for E coli. He was treated with Macrobid but continued to have urinary symptoms and systemic symptoms. He came into the ER for further evaluation of continued symptoms. The patient has been started on Rocephin based on recent urine culture results. Urine culture was negative for any growth. Blood cultures showed no growth at this time. The patient's urine at this time does not appear to be grossly infected but given his recent symptoms and persistent fever I suspect he has a partially treated urinary tract infection versus prostatitis I evaluated the patient yesterday evening he was still not having any improvement fever and I switched his antibiotics to IV ertapenem for possible ESBL UTI that was untreated. Infectious disease was consulted for further input and recommendations. Continue monitoring patient's symptoms. Continue IV antibiotics. Continue monitoring culture results. (3) Chest pain: Code(s): R07.9 - Chest pain, unspecified Status: Acute Assessment and Plan: Upon my examination patient was tell me about his substernal chest pain and worsening dyspnea on exertion when walking around his house. EKG was ordered and I compared it to his EKG from 09/12/2018 which shows he has new T wave inversions in I and aVL, otherwise EKG is similar to prior showing sinus rhythm with first degree AV block, left LVH. Troponin was ordered and was elevated at 0.057, 0.051, 0.065 Cardiology was consulted, Dr. Field, who knows the patient and states he had a negative catheterization showing no obstructive coronary artery disease about 1 year ago. Patient recently had a EMA to further evaluate his aortic stenosis. He does not feel at this time further ischemic workup is warranted. Telemetry showed normal sinus rhythm with a heart rate of 77 beats per minute with rare PVCs. D-dimer was elevated at 1 yesterday. The patient cannot have a CTA secondary to an allergy to contrast. V/Q scan was ordered today which showed low chance PE. Venous Dopplers were negative for any DVT. Patient denies any chest pain at this time. Continue monitoring and
[2020-04-11] MEDS: PROMETHAZINE HCL 25 MG/ML AMPUL 12.5 MG IV PUSH (11:27)
--- NOTE | 2020-04-11 11:45 | PCOTNOTE ---
Attempted OT evaluation, but unable to complete as patient declined secondary to feeling nauseous. Will attempt again later.
[2020-04-11 12:40] LABS: Rheumatoid Factor < 12.0 IU/ML (<12)
[2020-04-11 13:17] LABS: HIV 1/2 Ab P24 Ag Result Negative (Negative)
[2020-04-11 13:43] LABS: Magnesium 2.1 mg/dL (1.6-2.3); Potassium 3.6 mmol/L (3.4-5.0)
[2020-04-11 14:31] LABS: Glucose Point of Care 190 (65-105)
--- NOTE | 2020-04-11 15:38 | PCCCNOTE ---
On 04/11/20, the student, [Julissa Kirby], provided care and completed [email or web address] this patient. I have reviewed the student's documentation and agree with the findings.
[2020-04-11 16:31] LABS: Glucose Point of Care 179 (65-105)
[2020-04-11 21:14] LABS: Glucose Point of Care 174 (65-105)
[2020-04-12] VITALS (8 sets, daily range): BP systolic 148–156; BP diastolic 59–62; PULSE 67–82; RESP 16–20; TEMP 36.2–36.8; O2SAT 94–98
[2020-04-12] MEDS: SODIUM CHLORIDE 0.9% IV 1,000 ML 125 ML IV CONT (03:42)
[2020-04-12] MEDS: ACETAMINOPHEN 325 MG TABLET 650 MG PO (03:42)
[2020-04-12 06:05] LABS: Basophils Percent Auto 0.4 % (0.2-1.2); Eosinophils Absolute Auto 0.1 K/mm3 (0-0.3); Eosinophils Percent Auto 1.7 % (0-4.4); Hematocrit 34.4 % (42.0-52.0); Hemoglobin 11.7 g/dL (14.0-18.0); Immature Granulocyte Absolute 0.02 K/mm3 (0.00-0.031); Immature Granulocyte Percent A 0.3 % (0-0.5); Lymphocytes Absolute Auto 1.28 K/mm3 (0.9-3.2); Lymphocytes Percent Auto 16.8 % (18.3-44.2); Mean Corpuscular Volume 85.4 fl (80-100); Mean Platelet Volume 9.5 fl (7.4-10.4); Monocytes Percent Auto 12.8 % (2.6-8.5); Neutrophils Absolute Auto 5.2 K/mm3 (1.3-6.7); Platelet Count Result 249 k/mm3 (150-375); Red Blood Count 4.03 M/mm3 (4.6-6.20); Red Cell Distribution Width 13.7 % (11.5-14.5); White Blood Count 7.6 K/mm3 (4.5-10.0)
[2020-04-12 06:36] LABS: Blood Urea Nitrogen 13 mg/dL (9-20); Calcium 8.2 mg/dL (8.4-10.2); Carbon Dioxide 31 mmol/L (22-30); Chloride 100 mmol/L (98-107); Estimated CRCL calculation 132 ml/min; Estimated Glomerular Filt Rate > 60; Glucose 178 mg/dL (75-110); Potassium 3.2 mmol/L (3.4-5.0); Sodium 135 mmol/L (137-145)
[2020-04-12 06:50] LABS: CRP 8.6 mg/dL (<1.0)
[2020-04-12 07:49] LABS: Glucose Point of Care 202 (65-105)
[2020-04-12] MEDS: INSULIN ASPART (*BKC) 100 UNITS/ML SUB-Q (07:49)
[2020-04-12] MEDS: ENOXAPARIN 40 MG/0.4 ML SYRINGE SUB-Q ×2 (07:55→20:54)
[2020-04-12] MEDS: OLMESARTAN MEDOXOMIL 20 MG TABLET 40 MG PO (07:56)
[2020-04-12] MEDS: POTASSIUM CHLORIDE 20 MEQ TABLET 40 MEQ PO (07:56)
[2020-04-12] MEDS: POTASSIUM CHLORIDE 20 MEQ PACKET (FOR LIQUID) PO (07:56)
[2020-04-12] MEDS: SERTRALINE HCL 50 MG TABLET PO (07:56)
[2020-04-12] MEDS: metFORMIN HCL XR 500 MG TAB.SR.24H 2000 MG PO (07:57)
[2020-04-12] MEDS: NIFEdipine 30 MG TAB.ER.24 PO (07:57)
[2020-04-12] MEDS: METOPROLOL SUCCINATE EXT REL 50 MG TABCR PO (07:57)
[2020-04-12] MEDS: MULTIVITAMINS THERAPEUTIC TAB (*BKC) 1 TABLET PO (07:57)
[2020-04-12] MEDS: PANTOPRAZOLE 40 MG TABLET PO (07:57)
[2020-04-12 11:29] LABS: Glucose Point of Care 151 (65-105)
--- NOTE | 2020-04-12 13:11 | WPDINFPN2 ---
Progress Note: A&P Assessment and Plan (1) Fever: Qualifiers: Fever type: unspecified Qualified Code(s): R50.9 - Fever, unspecified Code(s): R50.9 - Fever, unspecified Status: Acute Assessment and Plan: fever ? symptomatic UTI REC resume antibiotic, using Ctx, until defervesces. Then see primary and/or urology as outpatient for any further measures. Subjective Date/time seen: 04/12/20 13:11 Objective Data Vital Signs Vital Signs: Vital Signs - 24 hr 04/11/20 14:00 04/11/20 16:00 04/11/20 20:00 Temperature 36.8 C Pulse Rate 76 75 77 Respiratory Rate 16 Blood Pressure 129/55 L Pulse Oximetry 97 04/11/20 21:52 04/12/20 00:14 04/12/20 04:00 Temperature 36.5 C Pulse Rate 78 67 75 Respiratory Rate 16 Blood Pressure 151/57 H Pulse Oximetry 97 04/12/20 05:30 04/12/20 07:57 04/12/20 08:00 Temperature 36.5 C Pulse Rate 76 75 82 Respiratory Rate 16 Blood Pressure 148/59 H Pulse Oximetry 94 Intake/Output Intake/Output: Intake & Output 04/09/20 04/10/20 04/11/20 04/12/20 23:59 23:59 23:59 23:59 Intake Total 3945 5800 2421 Output Total 1400 2475 2650 Balance 2545 5685 -284 Meds/Results Medications: Active Medications Generic Name Dose Route Start Last Admin Trade Name Freq PRN Reason Stop Dose Admin Acetaminophen 650 mg 04/10/20 07:06 04/12/20 03:42 Tylenol Tablet PO 650 mg Q4H PRN Administration Headache or fever (pain 1-5) Dextrose 12.5 gm 04/10/20 05:12 Dextrose 50% Syringe IV PUSH PRN PRN Hypoglycemia Protocol Enoxaparin Sodium 40 mg 04/10/20 09:00 04/12/20 07:55 Lovenox SUB-Q 40 mg Q12HR NOAH Administration Glucagon 1 mg 04/10/20 05:12 Glucagon For Inj IM PRN PRN Hypoglycemia Protocol Glucose 15 gm 04/10/20 05:12 Glutose 15 PO PRN PRN Hypoglycemia Protocol Dextrose 1,000 mls @ 100 mls/hr 04/10/20 05:12 Dextrose 5% 1,000 Ml IVPB PRN PRN Hypoglycemia Protocol Ceftriaxone Sodium/Dextrose 1 gm in 50 mls @ 100 mls/hr 04/12/20 13:10 Rocephin 1 Gm/D5w 50 Ml IVPB Q24H [facility] Insulin Aspart 3 - 6 units 04/10/20 08:00 04/12/20 11:32 Novolog SUB-Q Not Given TIDWM [facility] Protocol Metformin HCl 2,000 mg 04/10/20 08:00 04/12/20 07:57 Glucophage Xr PO 2,000 mg DAILY@0800 NOAH Administration Metoprolol Succinate 50 mg 04/10/20 09:00 04/12/20 07:57 Toprol Xl PO 50 mg DAILY NOAH Administration Multivitamins Therapeutic 1 tablet 04/10/20 09:00 04/12/20 07:57 Multivitamins Therapeutic(*Bkc PO 05/10/20 09:01 1 tablet DAILY NOAH Administration Nifedipine 30 mg 04/10/20 09:00 04/12/20 07:57 Procardia Xl PO 30 mg DAILY NOAH Administration Olmesartan 40 mg 04/10/20 09:00 04/12/20 07:56 Benicar PO 05/10/20 09:01 40 mg DAILY NOAH Administration Pantoprazole Sodium 40 mg 04/10/20 09:00 04/12/20 07:57 Protonix PO 40 mg QAM NOAH Administration Potassium Chloride 20 meq 04/10/20 08:00 04/12/20 07:56 Kcl Powder (For Liquid) PO 20 meq DAILY@0800 NOAH Administration Promethazine HCl 12.5 mg 04/11/20 11:04 04/11/20 11:27 Phenergan Inj IV PUSH 12.5 mg Q4H PRN Administration Nausea And Vomiting Sertraline HCl 50 mg 04/10/20 09:00 04/12/20 07:56 Zoloft PO 50 mg DAILY NOAH Administration Radiology Results: ITS Impressions Abdomen/Pelvis CT 04/10/20 09:57 IMPRESSION: 1. 4 mm nonobstructing right kidney stone. Chest X-Ray 04/10/20 10:17 IMPRESSION: 1. No acute cardiopulmonary disease. Venous Doppler Study 04/11/20 10:28 IMPRESSION: 1: No lower extremity deep venous thrombosis. Pulmonary Perfusion Imaging 04/11/20 11:24 IMPRESSION: 1. Low probability for pulmonary embolism. Labs Labs: Laboratory Results - last 24 hr 04/11/20 04/11/20 04/11/20 12:03 13:23 14:27 W
--- NOTE | 2020-04-12 14:54 | PM.IMPN ---
Progress Note: A&P Assessment and Plan (1) Sepsis: Code(s): A41.9 - Sepsis, unspecified organism Status: Acute Assessment and Plan: The patient was found to be septic with leukocytosis, fever and lactic acidosis in the setting of a urinary tract infection; UCx was negative, however. Afebrile since am of 04/11. VSS. Leukocytosis improved. ID has been consulted and appreciate recommendations. BCx NGTD x 2. UCx negative possibly due to treatment with Macrobid earlier this month. Lactic acidosis resolved. Per ID rec, continue IV rocephin Will await further rec from ID Possibly discharge in next 1-2 days if continues to be afebrile Monitor closely (2) UTI (urinary tract infection): Qualifiers: Hematuria presence: without hematuria Urinary tract infection type: site unspecified Qualified Code(s): N39.0 - Urinary tract infection, site not specified Code(s): N39.0 - Urinary tract infection, site not specified Status: Acute Assessment and Plan: Patient was found have a urinary tract infection on 03/31/2020 positive for E coli. He was treated with Macrobid but continued to have urinary symptoms and systemic symptoms after seeing PCP on 04/06. UCx negative likely due to tx with Macrobid As above, continue IV rocephin per ID rec Await further rec from ID. Monitor (3) Chest pain: Code(s): R07.9 - Chest pain, unspecified Status: Resolved Assessment and Plan: CP has seemed to have resolved. Tele shows sinus rhythm with occasional PVCs. Troponins mildly elevated and plateaued. Cardiology consulted and appreciate recommendations; no further ischemic workup at this time. V/Q scan shows low probability of PE; Venous doppler negative for DVT Monitor Will d/c tele today (4) Acidosis, lactic: Code(s): E87.2 - Acidosis Status: Resolved Assessment and Plan: Lactic acid on arrival was 2.5, and repeat lactic was normal at 1.7. The patient received 1 L normal saline bolus in the ER and has been continued on maintenance IV fluids. His lactic acidosis has resolved. Continue monitoring and if any worsening symptoms will repeat lab. (5) Type 2 diabetes mellitus with hyperglycemia: Code(s): E11.65 - Type 2 diabetes mellitus with hyperglycemia Status: Acute Assessment and Plan: BGL [id number] 200s today. A1c 7.5% Continue home metformin Accuchecks ACHS, hypoglycemia protocol, correctional insulin, diabetic diet. Subjective Date/time seen: 04/12/20 14:54 Interval history: Patient is a 69 yo M with history of CAD, HTN, DMII, morbid obesity among several other comorbid conditions who is here for evaluation/treatment of UTI/sepsis. Patient states he is feeling better today. No subjective fevers. Nausea/vomiting has improved. Overall has been feeling better today. He notes increased frequency in BMs, but not overtly foul smelling; no blood/melena. No other complaints at this time. Denies current f/c/s, myalgias/arthralgias, headaches, dizziness, lightheadedness, changes in v/h, current cp/palpitations, sob/cough, current n/v, abd pain, current dysuria, hematuria, cloudy urine, calf pain/swelling. Review of Systems Review of Systems: All systems reviewed & are unremarkable except as noted in HPI and below Exam Narrative: Exam Narrative: Patient lying in semi-lazaro's position at time of visit Const: General: cooperative, comfortable, no acute distress, well developed, alert, awake and Physically active Nutritional Appearance: obese morbidly obese Orientation/consciousness: patient oriented x3 HENMT: Head: normocephalic and atraumatic General nose exam: Normal nares present Face and sinus: face symmetric Mouth
[2020-04-12 16:17] LABS: Glucose Point of Care 169 (65-105)
[2020-04-12] MEDS: SACCHAROMYCES BOULARDII 250 MG CAPSULE PO (17:50)
--- NOTE | 2020-04-12 18:15 | CONS_ITS ---
DATE OF CONSULTATION: 04/12/2020 REASON FOR CONSULTATION: Fever. HISTORY OF PRESENT ILLNESS: The patient is a 69-year-old male, who since last June has had 3 discrete episodes of urinary frequency and fever. Most recently, he began feeling ill about 13 days before admission with bilateral low lumbar back pain without aggravating or relieving factors, also fever into the 38-39 range and urinary frequency every hour. He visited Urgent Care, where he was given levofloxacin. Repeat urine culture at this time revealed a nonsusceptible E. coli, and 8 days before admission, he was changed to nitrofurantoin. Followup was scheduled. He also had chills 5 days before admission and was seen in the office 3 days before admission and nitrofurantoin was continued. However, he continued to have fever and presented to the emergency room here on the . He was given ceftriaxone then changed to ertapenem, the latter has now been stopped. Consultation requested. Initially, he felt somewhat improved on the levofloxacin and in the 5 to 7 days prior to admission on the new nitrofurantoin, he felt much improved, but has remained febrile here. His urinary frequency seems to have resolved. He has had some intermittent nausea as well. No other symptoms. He has chills, but no skylar or rigors. He has been on no other antibiotics in the last 2 months for any other purpose. No immunosuppressants. He has had some mild hyperglycemia. His Accu-Cheks when he checks them are in the 150 range. Hemoglobin A1c is 6.9%. ALLERGIES: CLARITHROMYCIN CAUSED ITCHING. OTHERS NOT PERTINENT. HABITS: No tobacco. No alcohol. PRESENT MEDICATIONS: No immunosuppressants. PAST MEDICAL HISTORY: Type 2 diabetes mellitus, rotator cuff surgery, left knee arthroscopic surgery, carpal tunnel, no implants, venous stasis, JAMEEL, GERD, obesity, hypertension, diverticulosis, peripheral neuropathy, depression, DDD, CAD, aortic regurgitation, cataracts. 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 FAMILY HISTORY: Positive for diabetes, otherwise not pertinent to his present illness. REVIEW OF SYSTEMS: 14-point review is otherwise negative. PHYSICAL EXAMINATION: GENERAL: This is a middle-aged male who appears actual age, in no acute distress. VITAL SIGNS: T-max 38.8, 82, 16, 148/59, 94% on room air. SKIN: He has some minimal venous stasis pigmentation over the distal lower legs. No rashes. Warm and dry. No breaks in the skin. Some ecchymosis in the left antecubital, consistent with phlebotomy. He has no cervical adenopathy. EENT: Conjunctivae are normal. Pupils equal, round, and reactive to light. Oropharynx, oral mucosa normal. Teeth in excellent repair. No paranasal sinus, erythema, edema or tenderness. NECK: Supple. No masses, thyromegaly. LUNGS: Clear to auscultation and percussion. BACK: No CVAT. CARDIAC: Regular rate and rhythm. No murmur, gallop, or rub. Radial and dorsalis pedis pulses are 2+ and equal. He has no abdominal bruits. ABDOMEN: Morbidly obese. No mass, tenderness or organomegaly. He has no flank tenderness. EXTREMITIES: Trace ankle edema. No venous varicosities. NEUROLOGIC: He is awake, alert, oriented, and appropriate. LABORATORY DATA: Current urine culture, no growth. Final blood cultures, no growth after 3 days incubation. Urine culture 7-20 with an E. coli that was susceptible to all except quinolones. White count 7.6, hemoglobin 11.7, platelets are 249. White count on admission 14.2. Differential is normal. He has mild hyponatremia, mild hypokalemia. Glucose 178 down from 304, A1c here 7.5%. CRP is 9. His urinalysis from the 2nd and from the 12th reviewed and shows improvement, though not normal. Rheumatoid factor is nonreactive. HIV is n
[2020-04-12 21:14] LABS: Glucose Point of Care 151 (65-105)
[2020-04-13 05:50] LABS: Basophils Percent Auto 0.3 % (0.2-1.2); Eosinophils Absolute Auto 0.1 K/mm3 (0-0.3); Eosinophils Percent Auto 1.7 % (0-4.4); Hematocrit 34.9 % (42.0-52.0); Hemoglobin 11.7 g/dL (14.0-18.0); Immature Granulocyte Absolute 0.03 K/mm3 (0.00-0.031); Immature Granulocyte Percent A 0.5 % (0-0.5); Lymphocytes Absolute Auto 1.57 K/mm3 (0.9-3.2); Lymphocytes Percent Auto 24.9 % (18.3-44.2); Mean Corpuscular HGB Conc 33.5 g/dl (32-36); Mean Corpuscular Hemoglobin 28.3 pg (26-34); Mean Corpuscular Volume 84.3 fl (80-100); Mean Platelet Volume 9.3 fl (7.4-10.4); Monocytes Absolute Auto 0.8 K/mm3 (0.1-0.6); Neutrophils Absolute Auto 3.8 K/mm3 (1.3-6.7); Neutrophils Percent Auto 59.6 % (45.5-73.1); Platelet Count Result 307 k/mm3 (150-375); Red Blood Count 4.14 M/mm3 (4.6-6.20); Red Cell Distribution Width 13.5 % (11.5-14.5); White Blood Count 6.3 K/mm3 (4.5-10.0)
[2020-04-13 05:52] VITALS: BP 186/69; PULSE 83; RESP 16; TEMP 36.8; O2SAT 97
[2020-04-13 06:03] LABS: Blood Urea Nitrogen 13 mg/dL (9-20); Calcium 8.7 mg/dL (8.4-10.2); Carbon Dioxide 31 mmol/L (22-30); Chloride 100 mmol/L (98-107); Estimated CRCL calculation 132 ml/min; Estimated Glomerular Filt Rate > 60; Glucose 161 mg/dL (75-110); Magnesium 1.9 mg/dL (1.6-2.3); Potassium 3.4 mmol/L (3.4-5.0); Sodium 138 mmol/L (137-145)
[2020-04-13 07:46] LABS: Glucose Point of Care 172 (65-105)
[2020-04-13] MEDS: POTASSIUM CHLORIDE 20 MEQ TABLET 40 MEQ PO (08:02)
[2020-04-13] MEDS: ENOXAPARIN 40 MG/0.4 ML SYRINGE SUB-Q (08:03)
[2020-04-13] MEDS: MULTIVITAMINS THERAPEUTIC TAB (*BKC) 1 TABLET PO (08:03)
[2020-04-13] MEDS: NIFEdipine 30 MG TAB.ER.24 PO (08:03)
[2020-04-13] MEDS: metFORMIN HCL XR 500 MG TAB.SR.24H 2000 MG PO (08:03)
[2020-04-13] MEDS: POTASSIUM CHLORIDE 20 MEQ PACKET (FOR LIQUID) PO (08:03)
[2020-04-13 08:04] VITALS: PULSE 81
[2020-04-13] MEDS: PANTOPRAZOLE 40 MG TABLET PO (08:04)
[2020-04-13] MEDS: METOPROLOL SUCCINATE EXT REL 50 MG TABCR PO (08:04)
[2020-04-13] MEDS: OLMESARTAN MEDOXOMIL 20 MG TABLET 40 MG PO (08:04)
[2020-04-13] MEDS: SACCHAROMYCES BOULARDII 250 MG CAPSULE PO ×2 (08:04→13:21)
[2020-04-13] MEDS: SERTRALINE HCL 50 MG TABLET PO (08:04)
--- NOTE | 2020-04-13 08:53 | PM.DS ---
DS: Admitting Diagnosis Admitting Diagnosis Admitting Diagnosis: Urinary tract infection, site not specified DS: Discharge Diagnosis Discharge Diagnosis (1) Sepsis: Code(s): A41.9 - Sepsis, unspecified organism Status: Acute Assessment and Plan: The patient was found to be septic with leukocytosis, fever and lactic acidosis in the setting of a urinary tract infection; UCx was negative, however. Afebrile since am of 04/11 (>48 hrs). VSS. Leukocytosis resolved. ID has been consulted and appreciate recommendations. BCx NGTD x 2. UCx negative possibly due to treatment with Macrobid earlier this month. Lactic acidosis resolved. Per ID rec, continue IV rocephin, likely through today then discharge given he is afebrile >48 hrs and is clinically improving Will discharge on PO cefdinir likely with 10-14 days total abx for UTI and possible prostatitis, although less likely F/u with PCP and possibly outpatient referral to urology given enlarged prostate/renal stone Monitor closely (2) UTI (urinary tract infection): Qualifiers: Hematuria presence: without hematuria Urinary tract infection type: site unspecified Qualified Code(s): N39.0 - Urinary tract infection, site not specified Code(s): N39.0 - Urinary tract infection, site not specified Status: Acute Assessment and Plan: Patient was found have a urinary tract infection on 03/31/2020 positive for E coli. He was treated with Macrobid but continued to have urinary symptoms and systemic symptoms after seeing PCP on 04/06. UCx negative likely due to tx with Macrobid As above, continue IV rocephin per ID rec, then switch to cefdinir at discharge F/u with PCP (3) Chest pain: Code(s): R07.9 - Chest pain, unspecified Status: Resolved Assessment and Plan: CP has seems to have resolved. Tele shows sinus rhythm with occasional PVCs. Troponins mildly elevated and plateaued. Cardiology consulted and appreciate recommendations; no further ischemic workup at this time. V/Q scan shows low probability of PE; Venous doppler negative for DVT F/u with PCP (4) Acidosis, lactic: Code(s): E87.2 - Acidosis Status: Resolved Assessment and Plan: Lactic acid on arrival was 2.5, and repeat lactic was normal at 1.7. The patient received 1 L normal saline bolus in the ER and has been continued on maintenance IV fluids. His lactic acidosis has resolved. Continue monitoring and if any worsening symptoms will repeat lab. (5) Type 2 diabetes mellitus with hyperglycemia: Code(s): E11.65 - Type 2 diabetes mellitus with hyperglycemia Status: Acute Assessment and Plan: BGL [id number] this morning. A1c 7.5% Continue home metformin Accuchecks ACHS, hypoglycemia protocol, correctional insulin, diabetic diet during stay DS: Summary Hospital Course Reason for hospitalization: UTI/sepsis/lactic acidosis Hospital Course: Patient is a 69 yo M with history of morbid obesity, [id number] aortic regurgitation, diabetes mellitus, and frequent urinary tract infections who presented to the ER on 04/09 with fever. Patient was treated in a UC 2 weeks prior for fevers and suspected UTI; levaquin was initially prescribed at that time but was switched to Macrobid given resistance on urine culture. He had some improvement after treatment, however his urgency and frequency continued; 5 more days of MAcrobid were prescribed. He then spiked a fever of 101 at home prompting him to present to the ER. While in the ER he was found to have UA suspicious of UTI with leukocytosis and lactic acidosis and reported fever of 101, making him technically septic. Patient admitted under this setting. Please see H&P for furthe
[2020-04-13 12:04] LABS: Glucose Point of Care 140 (65-105)
[2020-04-15 00:30] LABS: Albumin 3.2 g/dL (3.8-4.8); Alpha 1 Globulin 0.5 g/dL (0.2-0.3); Alpha 2 Globulin 0.9 g/dL (0.5-0.9); Beta 1 Globulin 0.5 g/dL (0.4-0.6); Protein, Total 6.4 g/dL (6.1-8.1)
== END 2020-04-13 14:37 | disposition home or self-care (01) | DRG 872 ==
LOC: ANHED 04-10 00:36 → ANH2MED 04-10 01:00
PROVIDERS: Physician Assistant; Admitting Provider Internal Medicine; Emergency Provider Emergency Medicine; PCP Family Medicine; Visit Provider Physician Assistant
DX: A41.9 Sepsis, unspecified organism (principal); N39.0 Urinary tract infection, site not specified; E87.2 Acidosis; Z68.42 Body mass index [BMI] 45.0-49.9, adult; E66.01 Morbid (severe) obesity due to excess calories; W18.39XA Other fall on same level, initial encounter; R07.9 Chest pain, unspecified; E11.65 Type 2 diabetes mellitus with hyperglycemia; G47.33 Obstructive sleep apnea (adult) (pediatric); K21.9 Gastro-esophageal reflux disease without esophagitis; E11.42 Type 2 diabetes mellitus with diabetic polyneuropathy; I25.10 Atherosclerotic heart disease of native coronary artery without angina pectoris; K57.90 Diverticulosis of intestine, part unspecified, without perforation or abscess without bleeding; M51.36 Other intervertebral disc degeneration, lumbar region; F32.9 Major depressive disorder, single episode, unspecified; I10 Essential (primary) hypertension; I25.2 Old myocardial infarction; I35.1 Nonrheumatic aortic (valve) insufficiency
CPT/HCPCS: 36415; 71045; 74176; 78580; 80048; 80053; 81001; 82728; 82948; 83036; 83605; 83615; 83735; 84132; 84155; 84165; 84484; 85025; 85027; 85380; 86038; 86140; 86430; 86703; 87040; 87086; 93005; 93970; 96361; 96365; 96372; 96375; 97161; 97165; 99291; A9270; A9540; G0378; G0432; J0696; J1335; J1650; J1815; J2550; J2765; J3475; J7030

== ENCOUNTER 2020-04-18 09:17 | Outpatient (CLI) | payer OTHER, SELFPAY ==
[2020-04-18 09:44] LABS: Blood Urea Nitrogen 16 mg/dL (9-20); Calcium 9.3 mg/dL (8.4-10.2); Carbon Dioxide 28 mmol/L (22-30); Chloride 99 mmol/L (98-107); Estimated Glomerular Filt Rate > 60; Glucose 175 mg/dL (75-110); Potassium 4.1 mmol/L (3.4-5.0); Sodium 137 mmol/L (137-145)
== END 2020-04-18 09:18 | disposition home or self-care (01) ==
PROVIDERS: PCP Family Medicine; Visit Provider Physician Assistant
DX: E87.6 Hypokalemia (principal); N39.0 Urinary tract infection, site not specified
CPT/HCPCS: 36415; 80048

== ENCOUNTER 2020-07-28 03:35 | Inpatient (IN) | payer OTHER, SELFPAY ==
[2020-07-28] VITALS (18 sets, daily range): BP systolic 146–211; BP diastolic 51–78; PULSE 69–91; RESP 14–26; TEMP 36.1–36.8; O2SAT 95–98; BMI 46.0
--- NOTE | 2020-07-28 | ECHO_ITS ---
Patient Info Name: Sharif Todd Age: 69 years : 1950 Gender: Male Ht: 71 in Wt: 330 lbs BSA: 2.81 m2 HR: 85 bpm BP: 165 / 53 mmHg Heart Rhythm: Sinus Rhythm Technical Quality: Good Exam Date: 07/28/2020 2:06 PM Exam Location: [facility] Patient Status: Outpatient Admit Date: 07/28/2020 Staff Ordering Physician: Livia Ingram MD Crystal Flat Grinder: Gareth Aguilar, GRIS, RT Attending Provider: Farida Peralta MD Referring Physician: Nataly DELEON; Exam Type: CA echo dop color flow w con Study Info Indications R06.00 - Dyspnea, unspecified Complete two-dimensional, color flow and Doppler transthoracic echocardiogram is performed with contrast to opacify the left ventricle and to improve the deliniation of the left ventricle endocardial borders. Contrast/Agitated Saline Contrast/Ag. Saline: Definity Amount: 3.00 ml Administered By: Mercedes Cardona, MYLENE Summary 1. Left ventricular chamber dimension is mildly enlarged. 2. Left ventricular systolic function is mildly reduced, estimated at 45-50%. 3. Definity contrast injectedTo improve visualization. 4. Left atrial chamber dimension is mildly enlarged. 5. There is moderate aortic valve regurgitation. 6. There is mild mitral valve regurgitation. Left Ventricle Left ventricular chamber dimension is mildly enlarged. Left ventricular systolic function is mildly reduced, estimated at 45-50%. The left ventricular diastolic function is normal. Definity contrast injectedTo improve visualization. Right Ventricle Right ventricular chamber dimension is normal. Left Atria Left atrial chamber dimension is mildly enlarged. Right Atria Right atrial chamber dimension is normal. Aortic Valve The aortic valve is trileaflet. There is moderate aortic valve regurgitation. Pulmonic Valve The pulmonic valve is not well visualized. Mitral Valve The mitral valve has normal leaflets. There is mild mitral valve regurgitation. Tricuspid Valve The tricuspid valve leaflets are not well visualized. Pericardium/Pleural The pericardium appears normal. Aorta The aortic root size at the sinus of Valsalva is normal. Left Ventricular Outflow Tract Name Value Normal LVOT 2D LVOT Diameter 2.38 cm LVOT Doppler LVOT Peak Gradient 7 mmHg LVOT Mean Gradient 3 mmHg LVOT VTI 22.93 cm LVOT VTI/AV VTI Ratio 0.58 LVOT Stroke Volume 101.86 ml LVOT CO 7.86 l/min LVOT CI 2.79 L/min/m2 Mitral Valve Name Value Normal MV Doppler MV Decel [place] 162.24 cm/s2 MV PHT 0 s MV Area (P
--- NOTE | ~2020-07-28 | XR_ITS ---
XR chest 1V portable DATE: 07/28/2020 03:57 INDICATION: Difficulty breathing. Dyspnea. TECHNIQUE: Portable upright AP chest on 07/24/2020 at 0358 hours COMPARISON: 04/10/2020 portable AP chest FINDINGS: There is interval pulmonary vascular congestion and pulmonary interstitial prominence inclu ding Javier B-lines. There is prominence of the minor fissure suggesting small amount of fluid in the fissure or subpleural edema. Minimal infiltrate or atelectasis at the right lung base. Heart size appears within normal range considering magnification associated with AP projection. There is mild aortic unfolding. IMPRESSION: Interval pulmonary vascular congestion, pulmonary interstitial and subpleural edema since 04/10/2020 Minimal infiltrate or atelectasis at the right lung base Reviewed, dictated and finalized at location A.
--- NOTE | ~2020-07-28 | NM_ITS ---
NM pulmonary perfusion DATE: 07/28/2020 06:54 INDICATION: Dyspnea. Positive d-dimer. Allergy to intravenous contrast material. TECHNIQUE: 8 standard perfusion images were obtained following intravenous injection of 5.18 mCi 90 9 M technetium MAA. COMPARISON: 11/28/2019 portable AP chest at 0358 hours FINDINGS: There is normal distribution of radiotracer throughout the lungs, without any segmental or lobar perfusion defects. IMPRESSION: Low probability of pulmonary embolus Reviewed, dictated and finalized at Location A. Reviewed, dictated and finalized at location A.
--- NOTE | 2020-07-28 03:43 | ED.CHESTPAIN ---
HPI - Chest Pain General Chief Complaint: Shortness of Breath/Dyspnea Stated Complaint: stemi, sob Time Seen by Provider: 07/28/20 03:43 Source: patient and EMS Mode of arrival: EMS Limitations: no limitations History of Present Illness HPI narrative: Patient is a 69-year-old male with a history of hypertension, type 2 diabetes who presents for evaluation of shortness of breath. Patient states he woke up acutely short of breath approximately 2 AM this morning. Patient denied any chest pain, jaw pain, back pain, shoulder pain or abdominal pain. No nausea, vomiting or diaphoresis. Patient states he felt as if he could not catch his breath. He denied any pain with inspiration. Patient states that he recently had a sleep study, but does not know the results of this are normal if he has sleep apnea. He states in the past he has been seen by Dr. Field with cardiology as well as her certified legal investigator in [place] for a valvular issue with his heart and was told that he did not need any intervention in this. The [facility] certified legal investigator place the patient on nitroglycerin, which the patient states that this has not improved his shortness of breath. Patient states he does experience shortness of breath with exertion throughout the day, but otherwise had a normal day today. No recent surgery. No calf pain or leg swelling. No recent immobilization or long car or air travel. No history of previous TX per the patient. Related Data Home Medications Medication Instructions Recorded Confirmed Daily Multivitamin 1 tablet PO DAILY 08/10/19 04/20/20 olmesartan 40 mg tablet 40 mg PO DAILY 11/09/19 04/20/20 nifedipine 30 mg PO DAILY 03/03/20 04/20/20 Allergies Allergy/AdvReac Type Severity Reaction Status Date / Time clarithromycin Allergy Unknown Itching Verified 07/27/20 11:07 Iodinated Contrast Media Allergy Unknown Itching Verified 07/27/20 11:07 iodine Allergy Unknown Itching Verified 07/27/20 11:07 ioversol Allergy Unknown Itching Verified 07/27/20 11:07 Contrast Media Allergy Unknown Itching Uncoded 07/22/20 08:17 Review of Systems Review of Systems: Narrative: CONSTITUTIONAL: Denies fever, chills, or sweats. EYES: Denies visual changes, redness, or discharge. ENT: Denies rhinorrhea, congestion, sore throat, or otalgia. CARDIOVASCULAR: Denies chest pain, reports palpitations RESPIRATORY: Reports dry cough and shortness of breath GASTROINTESTINAL: Denies abdominal pain, nausea, vomiting, or diarrhea. GENITOURINARY: Denies dysuria or hematuria. SKIN: Denies rash or itching. MUSCULOSKELETAL: Denies back pain, joint pain, or myalgia. NEUROLOGIC: Denies headache, numbness, or weakness. [facility] Past Medical History Medical History Acidosis, lactic Aortic regurgitation Gmjy-vx-byhnnviu regurgitation noted on transesophageal echocardiogram February [address] Field Bilateral cataracts Maturing CAD (coronary artery disease) Cardiac catheterization October 2018 which demonstrated 20% stenosis a branch of the LAD otherwise had normal coronary arteries Carpal tunnel syndrome (~2004) Chest pain Cough DDD (degenerative disc disease), lumbar Depression Diabetic peripheral neuropathy Diverticulosis of intestine, part unspecified, without perforation or abscess with bleeding With last colonoscopy: 2014 DM neuro manif type II Dysphagia Essential (primary) hypertension Hx of myocardial infarction Hypertensive heart disease Microalbuminuria due to type 2 diabetes mellitus Diabetic nephropathy Morbid obesity with BMI of 50.0-59.9, adult Nonerosive esophageal reflux disease Noted on EGD from July 2019 Obstructive sleep apnea Mild per the patient's report. He has never used CPAP. Restrictive lung disease Rhinitis Schatzki's ring Noted on EGD performed by Dr. Hunter July 2019 Shortness of breath Type 2 diabetes mellitus with hyperglycemia Venous insufficiency of b
[2020-07-28 03:57] LABS: Basophils Percent Auto 0.3 % (0.2-1.2); Eosinophils Absolute Auto 0.2 K/mm3 (0-0.3); Eosinophils Percent Auto 2.7 % (0-4.4); Hematocrit 43.7 % (42.0-52.0); Hemoglobin 15.3 g/dL (14.0-18.0); Immature Granulocyte Absolute 0.01 K/mm3 (0.00-0.031); Immature Granulocyte Percent A 0.2 % (0-0.5); Lymphocytes Absolute Auto 2.18 K/mm3 (0.9-3.2); Lymphocytes Percent Auto 36.9 % (18.3-44.2); Mean Corpuscular Hemoglobin 29.4 pg (26-34); Mean Corpuscular Volume 83.9 fl (80-100); Mean Platelet Volume 10.3 fl (7.4-10.4); Monocytes Absolute Auto 0.7 K/mm3 (0.1-0.6); Neutrophils Absolute Auto 2.8 K/mm3 (1.3-6.7); Neutrophils Percent Auto 47.9 % (45.5-73.1); Platelet Count Result 210 k/mm3 (150-375); Red Blood Count 5.21 M/mm3 (4.6-6.20); Red Cell Distribution Width 13.3 % (11.5-14.5); White Blood Count 5.9 K/mm3 (4.5-10.0)
--- NOTE | 2020-07-28 04:01 | ECG_ITS ---
Measurements Intervals [place] Rate: 91 P: 18 SC: 212 QRS: -40 QRSD: 106 T: 81 QT: 380 QTc: 469 Interpretive Statements SINUS RHYTHM WITH FIRST DEGREE AV BLOCK POSSIBLE LEFT ATRIAL ENLARGEMENT LEFT AXIS DEVIATION LEFT VENTRICULAR HYPERTROPHY AND ST-T CHANGE CANNOT RULE OUT SEPTAL INFARCT, AGE INDETERMINATE BASELINE WANDER- V2 ABNORMAL ECG Electronically Signed On 07-28-2020 7:14:37 CDT by Evan Salcido D.O.
[2020-07-28 04:02] LABS: Alveolar/Arterial O2 Gradient 107.2 mmHg; Base Excess ABG 1.2 mEq/l (+/-2.0); Fractional Inspired Oxygen 32 %; HCO3 ABG 25.4 mEq/l (22.0-26.0); Oxygen Content ABG 20.2 %vol (16.0-22.0); Oxygen Saturation ABG 95.5 % (95.0-100.0); Oxyhemoglobin 93.2 % THb (90.0-100.0); PCO2 ABG 39.2 mmHg (35.0-45.0); PO2 ABG 75.1 mmHg (80.0-100.0); PO2 FiO2 Ratio Arterial Blood 2.35 %; Total Hemoglobin 15.4 g/dL (12.0-18.0)
[2020-07-28 04:03] LABS: Device NASAL CANNULA; Modified Allen's Test Pass; Site Drawn RIGHT RADIAL
[2020-07-28 04:11] LABS: Partial Thromboplastin Time 29.7 SECONDS (22.3-36.8); Prothrombin Time 12.8 Seconds (11.1-14.7)
[2020-07-28 04:14] LABS: D Dimer 0.66 ug/mL (<0.48)
--- NOTE | 2020-07-28 04:23 | PC.NURSE ---
XRAY NOTIFIED TO CALL IN [employer] [facility] FOR VQ STUDY.
[2020-07-28 04:26] LABS: NT Pro B Type Natriuretic Pept 985 PG/ML (5-100); Troponin I 0.033 ng/mL (0.000-0.034)
[2020-07-28 04:40] LABS: Anion Gap 10 mmol/L (8-16); Blood Urea Nitrogen 21 mg/dL (9-20); Calcium 9.8 mg/dL (8.4-10.2); Carbon Dioxide 31 mmol/L (22-30); Chloride 97 mmol/L (98-107); Estimated Glomerular Filt Rate > 60; Glucose 178 mg/dL (75-110); Potassium 3.8 mmol/L (3.4-5.0); Sodium 138 mmol/L (137-145)
[2020-07-28] MEDS: hydrALAZINE HCL 20 MG/ML VIAL IV PUSH (05:05)
[2020-07-28] MEDS: FUROSEMIDE INJ 40 MG/4 ML VIAL 20 MG IV PUSH (06:53)
[2020-07-28] MEDS: amLODIPine BESYLATE 5 MG TABLET PO (06:54)
[2020-07-28 08:01] LABS: Troponin I 0.078 ng/mL (0.000-0.034)
--- NOTE | 2020-07-28 08:01 | PC.NURSE ---
Deirdre from [facility] called and wanted to make sure that pts echo that was ordered for today was not needing to be done STAT , even though orders stated such. Per Dr. Ingram, admitting Dr would just like echo done today. Relayed this to Deirdre and she states that echo will be done today just not STAT.
--- NOTE | 2020-07-28 08:04 | PCCARD ---
TALKED WITH PATIENTS RN (KAREN) REGARDING ECHO ORDERED 'STAT', SHE SPOKE WITH DR REYES AND HE SAID HE WANTS ECHO DONE TODAY BUT NOT NECESSARILY STAT
--- NOTE | 2020-07-28 08:39 | ADMGEN ---
This patient, Sharif Todd, was admitted to IMU Room 205-01. Patient/family oriented to hospital policies and general routines including ID bracelet, bed and alarms, visiting hours, pain management, procedures, bathroom and other care routines, personal items, smoking policy, room service/diet, and visiting hours. Information on how to activate the Rapid Response Team has been discussed. Patient/Family are encouraged to report perceived risks to care and to ask questions if they do not understand what they are told or what they should do.
--- NOTE | 2020-07-28 10:17 | PM.CNCAR ---
Assessment and Plan Assessment and plan (1) Hypertensive urgency: Code(s): I16.0 - Hypertensive urgency Status: Acute Assessment and Plan: His blood pressure is high at home and was high on admission. Recommend increasing nifedipine from 30 mg daily to 90 mg daily. recommend to increase chlorthalidone from 12.5 mg daily to 25 mg daily. Continue olmesartan 40 mg daily, metoprolol 50 mg daily, eplerenone 100mg daily. (2) Pulmonary edema: Code(s): J81.1 - Chronic pulmonary edema Status: Acute Assessment and Plan: most likely secondary to uncontrolled hypertension. Will adjust blood pressure medications. He looks euvolemic now after 1 dosage of IV Lasix. (3) Aortic regurgitation: Code(s): I35.1 - Nonrheumatic aortic (valve) insufficiency Status: Acute Assessment and Plan: Gqml-qp-ynbayoft unless transesophageal echocardiogram done March 2020 History of Present Illness History of Present Illness Consult date/time: date of service 07/28/20 10:17 Requesting physician: Livia Ingram MD Consult reason: hypertension and Other ( hypertensive crisis and shortness of breath) Reason For Visit: Shortness of breath. Narrative: this is 69-year-old patient who follows up with Dr. Field and with past medical history hypertension, type 2 diabetes [id number] aortic valve regurgitation by transesophageal echocardiogram March 2020. on admission patient's blood pressure was 211/98. he awoke this morning feeling sudden onset shortness of breath at 2:00 a.m. and his blood pressure was high when he arrived. Denies chest pain, lower limb edema, dizziness, syncope. Shortness of breath improved after 1 dosage of IV Lasix 20 mg IV. He states that at home his blood pressure runs high with systolic in the 170s. He had sleep study done recently but that has not received CPAP machine yet. reported a previous cardiac catheterization at [place] a year ago and did not need stents at that time. troponins 0.033 and 0.078, pro bnp 985, serum creatinine 0.7, chest x-ray reviewed myself shows pulmonary vascular congestion, EKG reviewed myself shows sinus rhythm, first-degree heart block, LVH, left axis deviation, septal Q-waves. Review of Systems Constitutional: Constitutional: Denies chills, Denies fever(s) and Denies poor appetite Eyes: Eyes: Denies eye discharge, Denies loss of vision, Denies eye pain and Denies photophobia ENT: Denies dizziness, Denies epistaxis, Denies nasal congestion and Denies sore throat Cardiovascular: Cardiovascular: Denies chest pain, Denies syncope, Denies pedal edema, Denies leg edema, Denies palpitations, Reports dyspnea, Reports dyspnea on exertion and Reports orthopnea Respiratory: Respiratory: Denies cough, Reports dyspnea, Reports dyspnea on exertion and Denies wheezing Gastrointestinal: Gastrointestinal: Denies abdominal pain, Denies diarrhea, Denies nausea and Denies vomiting Genitourinary: Genitourinary: Denies hematuria, Denies genital lesions and Denies dysuria Musculoskeletal: Musculoskeletal: Denies arthralgias, Denies joint swelling and Denies numbness Integumentary/Breasts: Skin/Breast: Denies pruritus and Denies rash Neurologic: Denies dizziness, Denies syncope, Denies loss of vision and Denies numbness Psychiatric: Psychiatric: Denies anxiety and Denies depression Endocrine: Endocrine: Denies cold intolerance, Denies heat intolerance and Denies palpitations Hematologic/Lymphatic: Hematologic/Lymphatic: Denies easy bleeding and Denies easy bruising Allergic/Immunologic: Allergic/Immunologic: Denies urticaria and Denies wheezing PMFSH Past Medical History Medical History Aortic regurgitation Qoyb-fx-opmekrmu regurgitation noted on transesophageal echocardiogram February [address] Field. Bilateral cataracts Maturing. Depression Diabetic nephropathy Diabetic vishal
--- NOTE | 2020-07-28 11:46 | PHAR ---
PT'S HOME MED EPLERENONE 50 MG TABS VERIFIED BY PHARMACY
--- NOTE | 2020-07-28 13:00 | PM.IMHP ---
H&P: HPI History of Present Illness Date/Time: 07/28/20 13:00 Chief complaint: Shortness of breath. Narrative: Sharif Todd is a 69-year-old male with hypertension, diwn-ap-xqgruohg aortic regurgitation noted on EMA in February 2020, type 2 diabetes mellitus, and suspected sleep apnea who presented to the emergency department earlier this morning via EMS from home for evaluation of shortness of breath. Over the past several months he reports progressive dyspnea on exertion ?but I have never been given answers.? He did have a sleep study within the last 1 week or so given suspected sleep apnea, he has not yet received those results. In any regard, he was wakened from sleep suddenly at 02:00 ?gasping for air? and on arrival to the emergency department he was found to have pulmonary edema on chest x-ray for which he was admitted. Blood pressures were also quite high, as high as 211/73, and with further questioning he reports that it typically runs in the 170s systolic. After receiving IV Lasix in the emergency department, he felt better within a short period of time and has no significant complaints at the time my evaluation. He has slept in a recliner for several years due to low back pain when he sleeps. Prior to [facility] he has never experienced orthopnea to this extent. Previously he had issues with intermittent lower extremity edema but since wearing compression stockings that has all but resolved. Over the past couple of weeks he has had discomfort in his right lower extremity, mainly in the right popliteal area and down the right lateral calf, for which she has been referred to an orthopedic for possible sciatica. He has no history of venous thromboembolism and denies chest pain and pleuritic pain. He is not short of breath at this time. No recent cold or flu symptoms. Review of Systems Review of Systems: Narrative: Twelve systems were reviewed with pertinent positives and negatives as per HPI. He has lost about 20 lb since November. As above he had a sleep study recently, and it sounds as though he does snore heavily and will occasionally wake at night feeling slightly short of breath. No significant daytime somnolence. No nausea, vomiting, or sweats. He denies headache. No dysuria or hematuria. Except as documented, all other systems were reviewed and are negative. [facility] Past Medical History Medical History (Updated 07/28/20 @ 20:17 by Adriana Bailey PA-C) Aortic regurgitation Hhyt-ov-vgxskwky regurgitation noted on transesophageal echocardiogram [address] Field. Bilateral cataracts Maturing. Depression Diabetic nephropathy Diabetic peripheral neuropathy Diverticulosis of intestine, part unspecified, without perforation or abscess with bleeding With last colonoscopy: 2014 Dysphagia Lumbar degenerative disc disease Mild coronary artery disease Cardiac catheterization October 2018 which demonstrated 20% stenosis a branch of the LAD otherwise had normal coronary arteries. Nonerosive esophageal reflux disease Noted on EGD from July 2019. Restrictive lung disease Schatzki's ring Noted on EGD performed by Dr. Hunter July 2019. Suspected sleep apnea Type 2 diabetes mellitus Hemoglobin A1c was 7.5% in February 2020. Venous insufficiency of both lower extremities Surgical History Surgical History History of carpal tunnel release (~2004) History of repair of right rotator cuff (~1997) Status post arthroscopy of left knee Family History Family History Father Diabetes mellitus Lung cancer Mother Hypertension Alzheimer's dementia Sibling Hypertension Renal cancer Social History Social History (Updated 07/28/20 @ 20:17 by Adriana Bailey PA-C) Social History: Surrogate decision maker: Doris Miller. Code status: Full code. Smoking status: Never smoker Second hand t
[2020-07-28] MEDS: traMADol HCL (*CRX) 50 MG TABLET PO ×2 (13:37→21:17)
[2020-07-28] MEDS: METOPROLOL SUCCINATE EXT REL 50 MG TABCR PO (14:46)
[2020-07-28] MEDS: ISOSORBIDE MONONITRATE 30 MG TAB.ER.24H PO (14:46)
[2020-07-28] MEDS: ASPIRIN 81 MG CHEWABLE TABLET PO (14:46)
[2020-07-28] MEDS: PERFLUTREN LIPID MICROSPHERES 1.5 ML VIAL DILUTED TO 10 ML TOTAL VOLUME IV PUSH (14:46)
[2020-07-28] MEDS: OLMESARTAN MEDOXOMIL 20 MG TABLET 40 MG PO (14:47)
[2020-07-28] MEDS: POTASSIUM CHLORIDE 20 MEQ TABLET.ER PO (14:47)
[2020-07-28] MEDS: CHLORTHALIDONE 25 MG TABLET PO (14:47)
[2020-07-28] MEDS: PANTOPRAZOLE 40 MG TABLET PO (14:47)
[2020-07-28] MEDS: NIFEdipine 30 MG TAB.ER.24 90 MG PO (14:47)
[2020-07-28] MEDS: SERTRALINE HCL 50 MG TABLET PO (14:47)
[2020-07-28] MEDS: MULTIVITAMINS /C LUTEIN (CENTRUM SILVER) TABLET *BKC 1 TAB PO (14:47)
[2020-07-28 20:48] LABS: Glucose Point of Care 179 (65-105)
[2020-07-29] VITALS (12 sets, daily range): BP systolic 142–158; BP diastolic 54–59; PULSE 58–85; RESP 16–18; TEMP 36.1–37.5; O2SAT 96–98; BMI 46.4
[2020-07-29 06:40] LABS: Hemoglobin A1C 6.5 % (<5.7)
[2020-07-29 06:42] LABS: Anion Gap 12 mmol/L (8-16); Blood Urea Nitrogen 18 mg/dL (9-20); Calcium 9.6 mg/dL (8.4-10.2); Carbon Dioxide 29 mmol/L (22-30); Chloride 97 mmol/L (98-107); Estimated CRCL calculation 132 ml/min; Estimated Glomerular Filt Rate > 60; Glucose 166 mg/dL (75-110); Magnesium 1.9 mg/dL (1.6-2.3); Potassium 3.1 mmol/L (3.4-5.0); Sodium 138 mmol/L (137-145)
[2020-07-29 06:54] LABS: Troponin I 0.128 ng/mL (0.000-0.034)
[2020-07-29 08:35] LABS: Glucose Point of Care 182 (65-105)
[2020-07-29] MEDS: ASPIRIN 81 MG CHEWABLE TABLET PO (08:44)
[2020-07-29] MEDS: NIFEdipine 30 MG TAB.ER.24 90 MG PO (08:45)
[2020-07-29] MEDS: SERTRALINE HCL 50 MG TABLET PO (08:45)
[2020-07-29] MEDS: PANTOPRAZOLE 40 MG TABLET PO (08:45)
[2020-07-29] MEDS: MULTIVITAMINS /C LUTEIN (CENTRUM SILVER) TABLET *BKC 1 TAB PO (08:45)
[2020-07-29] MEDS: POTASSIUM CHLORIDE 20 MEQ TABLET.ER PO (08:45)
[2020-07-29] MEDS: CHLORTHALIDONE 25 MG TABLET PO (08:45)
[2020-07-29] MEDS: OLMESARTAN MEDOXOMIL 20 MG TABLET 40 MG PO (08:45)
[2020-07-29] MEDS: METOPROLOL SUCCINATE EXT REL 50 MG TABCR PO (08:45)
[2020-07-29] MEDS: ISOSORBIDE MONONITRATE 30 MG TAB.ER.24H PO (08:45)
--- NOTE | 2020-07-29 11:54 | PM.PNCARD ---
Progress Note: A&P Assessment and Plan (1) Hypertensive urgency: Code(s): I16.0 - Hypertensive urgency Status: Acute Assessment and Plan: Blood pressure much better controlled. Continue nifedipine at 90 mg daily, chlorthalidone at 25 mg daily, Metoprolol succinate at 50 mg daily, olmesartan 40 mg daily,eplerone 100 mg daily isosorbide mononitrate 30 mg daily. (2) Pulmonary edema: Code(s): J81.1 - Chronic pulmonary edema Status: Acute Assessment and Plan: One dose of IV Lasix in the emergency room. Diuresed well. Now on room air. No orthopnea. Echocardiogram 07/28/2020:Left ventricular chamber dimension is mildly enlarged. Left ventricular systolic function is mildly reduced, estimated at 45-50%. Left atrial chamber dimension is mildly enlarged. There is moderate aortic valve regurgitation. There is mild mitral valve regurgitation. Home sleep study 07/14/2020: Total apnea/Hypopnea index 69.9. Average sleep oxygen saturation 91 Minimum sleep oxygen saturation 72. He will need to follow-up with regarding the results and further study/treatment. (3) Aortic regurgitation: Qualifiers: Cardiac valve disease etiology: nonrheumatic Qualified Code(s): I35.1 - Nonrheumatic aortic (valve) insufficiency Code(s): I35.1 - Nonrheumatic aortic (valve) insufficiency Status: Acute Assessment and Plan: Aboq-ye-noifsuly unless transesophageal echocardiogram done March 2020 (4) Hypokalemia: Code(s): E87.6 - Hypokalemia Status: Acute Assessment and Plan: Supplemented. Will follow as an outpatient. (5) Elevated troponin: Code(s): R77.8 - Other specified abnormalities of plasma proteins Status: Acute Assessment and Plan: Related to hypertension. Cardiac catheterization done 10/31/2018 which 20% stenosis in a branch of the LAD but otherwise angiographically normal coronary arteries. Blood pressure treatment as above. Additional Plan OK to discharge from cardiac standpoint. See discharge instructions for follow-up. Plan discussed Dr. Field [id number] 07/29/2020 Subjective Date/time seen: 07/29/20 11:54 Interval history: Follow-up for: Hypertensive urgency, elevated troponin, pulmonary edema, aortic insufficiency, hypokalemia Date of service: 07/29/2020 Subjective: Denied any chest discomfort, lightheadedness or palpitations. Short of breath with exertional activities. No further orthopnea. Review of Systems Constitutional: Constitutional: Denies chills, Denies fever(s) and Denies poor appetite Eyes: Eyes: Denies loss of vision and Denies eye pain ENT: Denies dizziness, Denies epistaxis, Denies nasal congestion and Denies sore throat Cardiovascular: Cardiovascular: Denies chest pain, Denies syncope, Denies pedal edema, Denies leg edema, Denies palpitations, Reports dyspnea on exertion and Denies orthopnea Respiratory: Respiratory: Denies cough, Reports dyspnea on exertion and Denies wheezing Gastrointestinal: Gastrointestinal: Denies abdominal pain, Denies diarrhea, Denies nausea and Denies vomiting Genitourinary: Genitourinary: Denies hematuria, Denies genital lesions and Denies dysuria Musculoskeletal: Musculoskeletal: Denies arthralgias, Denies joint swelling and Denies numbness Integumentary/Breasts: Skin/Breast: Denies pruritus and Denies rash Neurologic: Denies dizziness, Denies syncope, Denies loss of vision and Denies numbness Psychiatric: Psychiatric: Denies anxiety and Denies depression Endocrine: Endocrine: Denies cold intolerance, Denies heat intolerance and Denies palpitations Hematologic/Lymphatic: Hematologic/Lymphatic: Denies easy bleeding and Denies easy bruising Allergic/Immunologic: Allergic/Immunologic: Denies urticaria and Denies wheezing Exam Const: General: cooperative,
[2020-07-29 12:40] LABS: Glucose Point of Care 204 (65-105)
[2020-07-29] MEDS: POTASSIUM CHLORIDE 20 MEQ TABLET 40 MEQ PO (12:46)
[2020-07-29] MEDS: INSULIN ASPART (*BKC) 100 UNITS/ML SUB-Q (12:47)
--- NOTE | 2020-07-29 13:24 | PM.DS ---
DS: Admitting Diagnosis Admitting Diagnosis Admitting Diagnosis: Shortness of breath. DS: Discharge Diagnosis Discharge Diagnosis (1) Hypertensive urgency: Code(s): I16.0 - Hypertensive urgency Status: Acute (2) Pulmonary edema: Code(s): J81.1 - Chronic pulmonary edema Status: Acute (3) Suspected sleep apnea: Code(s): R29.818 - Other symptoms and signs involving the nervous system Status: Acute (4) Type 2 diabetes mellitus: Code(s): E11.9 - Type 2 diabetes mellitus without complications Status: Acute (5) Aortic regurgitation: Code(s): I35.1 - Nonrheumatic aortic (valve) insufficiency Status: Acute DS: Summary Hospital Course Reason for hospitalization: 69yo male here for SOB. Please see H&P for details. Hospital Course: Patient presented to the ED earlier on the day of admission via EMS from home for evaluation of shortness of breath. Over the past several months he reports progressive dyspnea on exertion. He did have a sleep study within the last 1 week or so given suspected sleep apnea, he has not yet received those results -- Results where located and warren does have sleep apnea described as severe. He was awakened from sleep suddenly at 02:00 ?gasping for air? and on arrival to the emergency department he was found to have pulmonary edema on chest x-ray for which he was admitted. Blood pressures were also quite high, as high as 211/73. He typically runs in the 170s systolic. He had improvement with good UOP after receiving IV Lasix in the emergency department. He was admitted for further care. EKG showing LVH and first degree block. DDimer was mildly positive but VQ scan showing low probability for PE. Echo showing EF 45-50% with LAE, moderate AI and mild MR. EF lower than previous - cardiology aware. Troponin elevated at 0.128 and cardiology aware. Erlin did have a LHC in 2019 showing only minimal cardiac disease. A1c 6.5. He was started on sliding scale. His medications adjusted with improvement in his BP. Patient feels much better. He will need to follow up with doctor for fuurther testing/treatment for his JAMEEL. Time Spent with Patient Time attestation: Total time spent providing and/or coordinating discharge services: 38 minutes Time spent: Greater than 30 minutes Exam Narrative: Exam Narrative: AF 97.9 142/59 75 18 98% Gen - NARD Chest - CTA bilaterally, nml RR CV - RRR S1/S2; Tele showing no significnat dysrhythmias Abd - Soft, obese, NT Ext - No pedal edema Psych - Nml mood and affect Skin - Warm and dry DS: Data Data Completed and Pending Labs on day of discharge: Labs from last 24 hours 07/29/20 07/29/20 07/29/20 12:02 08:18 06:30 Sodium Potassium Chloride Carbon Dioxide Anion Gap BUN Creatinine Estim Creat Clear Calc Estimated GFR Glucose POC Capillary Glucose 204 H 182 H Hemoglobin A1c Calcium Magnesium Troponin I TSH (Reflex) 2.090 07/29/20 07/29/20 07/29/20 06:23 06:23 06:23 Sodium 138 Potassium 3.1 L Chloride 97 L Carbon Dioxide 29 Anion Gap 12 BUN 18 Creatinine 0.70 Estim Creat Clear Calc 132 Estimated GFR > 60 Glucose 166 H POC Capillary Glucose Hemoglobin A1c 6.5 H Calcium 9.6 Magnesium 1.9 Troponin I 0.128 H* TSH (Reflex) 07/28/20 20:46 Sodium Potassium Chloride Carbon Dioxide Anion Gap BUN Creatinine Estim Creat Clear Calc Estimated GFR Glucose POC Capillary Glucose 179 H Hemoglobin A1c Calcium Magnesium Troponin I TSH (Reflex) Discharge Plan Discharge Attending physician on discharge: Cale Encinas Consulting providers: Kaushik Field Discharging Clinician: Cale Encinas Anticipated Discharge Date/Time: 07/29/20 13:40 Patient Disposition: Home, Self-Care Activity: as tolerated Diet: heart healthy and
== END 2020-07-29 15:56 | disposition home or self-care (01) | DRG 305 ==
LOC: ANHED 07:15 → ANHIMU 07:53
PROVIDERS: Physician Assistant; Admitting Provider Family Medicine; Emergency Provider Emergency Medicine; PCP Family Medicine; Visit Provider Internal Medicine
DX: I16.0 Hypertensive urgency (principal); J81.1 Chronic pulmonary edema; Z68.42 Body mass index [BMI] 45.0-49.9, adult; E66.01 Morbid (severe) obesity due to excess calories; G47.33 Obstructive sleep apnea (adult) (pediatric); I10 Essential (primary) hypertension; R77.8 Other specified abnormalities of plasma proteins; I35.1 Nonrheumatic aortic (valve) insufficiency; E87.6 Hypokalemia; E11.21 Type 2 diabetes mellitus with diabetic nephropathy; E11.42 Type 2 diabetes mellitus with diabetic polyneuropathy; E11.36 Type 2 diabetes mellitus with diabetic cataract; H26.9 Unspecified cataract; E11.65 Type 2 diabetes mellitus with hyperglycemia; I25.10 Atherosclerotic heart disease of native coronary artery without angina pectoris; J98.4 Other disorders of lung; R13.10 Dysphagia, unspecified; I25.2 Old myocardial infarction; Z79.84 Long term (current) use of oral hypoglycemic drugs; Z79.899 Other long term (current) drug therapy
CPT/HCPCS: 36415; 36600; 71045; 78580; 80048; 82805; 83036; 83735; 83880; 84443; 84484; 85025; 85380; 85610; 85730; 93005; 96374; 96375; 99285; A9270; A9540; C8929; G0378; J0360; J1815; J1940; Q9957

== ENCOUNTER 2020-08-03 10:53 | Outpatient (CLI) | payer OTHER, SELFPAY ==
[2020-08-03 12:03] LABS: Anion Gap 11 mmol/L (8-16); Blood Urea Nitrogen 17 mg/dL (9-20); Calcium 9.8 mg/dL (8.4-10.2); Carbon Dioxide 31 mmol/L (22-30); Chloride 96 mmol/L (98-107); Estimated Glomerular Filt Rate > 60; Glucose 187 mg/dL (75-110); Potassium 3.2 mmol/L (3.4-5.0); Sodium 138 mmol/L (137-145)
== END 2020-08-03 10:54 | disposition home or self-care (01) ==
LOC: ANHLAB 10:54
PROVIDERS: PCP Family Medicine; Visit Provider Internal Medicine
DX: I16.9 Hypertensive crisis, unspecified (principal)
CPT/HCPCS: 36415; 80048

== ENCOUNTER 2020-09-01 14:48 | Emergency (ER) | payer OTHER, SELFPAY ==
[2020-09-01] VITALS (10 sets, daily range): BP systolic 119–176; BP diastolic 51–83; PULSE 77–94; RESP 15–23; TEMP 36.8; O2SAT 95–98
--- NOTE | ~2020-09-01 | XR_ITS ---
EXAMINATION: XR chest 2V DATE: 09/01/2020 15:23 INDICATION: Cardiac arrhythmia. Leaking heart valve. TECHNIQUE: PA and lateral views of the chest were obtained. COMPARISON: Chest radiograph dated 07/28/2020 FINDINGS: Prior diffuse interstitial pattern likely related to pulmonary edema has resolved. Minimal linear dis coid atelectasis at the lateral left lung base. No other airspace opacities, pleural effusion or pneu mothorax. The cardiomediastinal silhouette is normal. There are bridging osteophytes at multiple leve ls in the spine, consistent with diffuse idiopathic skeletal hyperostosis (DISH). IMPRESSION: 1. Minimal left basilar atelectasis. Reviewed, dictated and finalized at location A. T BOOTH OPERATOR
--- NOTE | 2020-09-01 14:52 | ECG_ITS ---
Measurements Intervals [place] Rate: 93 P: 42 SC: 206 QRS: -45 QRSD: 106 T: 79 QT: 370 QTc: 462 Interpretive Statements SINUS RHYTHM WITH FIRST DEGREE AV BLOCK ATRIAL PREMATURE COMPLEXES POSSIBLE LEFT ATRIAL ENLARGEMENT LEFT ANTERIOR FASCICULAR BLOCK LEFT VENTRICULAR HYPERTROPHY AND ST-T CHANGE CANNOT RULE OUT SEPTAL INFARCT, AGE INDETERMINATE BASELINE WANDER- I, II, III, AVL, AVF, V1-V3 ABNORMAL ECG Electronically Signed On 09-01-2020 16:14:02 GREENHOUSE TECHNICIAN by Evan Salcido D.O.
--- NOTE | 2020-09-01 15:02 | ED.ARRPALP ---
HPI - Arrhythmia/Palpitations General Chief Complaint: Arrhythmia/Palpitations Stated Complaint: irregular heartbeat Time Seen by Provider: 09/01/20 14:54 Source: patient Mode of arrival: ambulatory Limitations: no limitations History of Present Illness HPI narrative: Patient 69-year-old male complaining of irregular heart rate, described as racing then would slow down, that started today. Denies any chest pain, shortness of breath, abdominal pain, nausea, vomiting, diaphoresis, fever or chills. Patient states that he has a history of leaky valve. Related Data Home Medications Medication Instructions Recorded Confirmed olmesartan 40 mg tablet 40 mg PO DAILY 11/09/19 08/04/20 isosorbide mononitrate 30 mg PO DAILY 07/28/20 08/04/20 [id number] acid-lutein 1 tablet PO DAILY 07/28/20 08/04/20 Allergies Allergy/AdvReac Type Severity Reaction Status Date / Time iodine Allergy Unknown Itching Verified 09/01/20 17:56 Contrast Media Allergy Unknown Itching Uncoded 09/01/20 17:56 Review of Systems Review of Systems: All systems reviewed & are unremarkable except as noted in HPI and below Constitutional: Constitutional: Denies body ache(s), Denies chills, Denies excessive sweating, Denies fatigue, Denies fever(s), Denies headache(s), Denies lethargy, Denies malaise, Denies weakness and Denies weight loss Eyes: Eyes: Denies blurry vision, Denies change in vision and Denies loss of vision ENT: Denies dizziness, Denies ear discharge, Denies headache(s), Denies lip swelling, Denies epistaxis, Denies nasal congestion, Denies neck pain, Denies throat swelling and Denies tongue swelling Cardiovascular: Cardiovascular: Denies chest pain, Denies chest pain at rest, Denies chest pain with activity, Denies diaphoresis, Denies edema, Denies lightheadedness, Denies dyspnea and Denies dyspnea on exertion Respiratory: Respiratory: Denies chest congestion, Denies cough, Denies hemoptysis, Denies dyspnea and Denies dyspnea on exertion Gastrointestinal: Gastrointestinal: Denies abdominal pain, Denies melena, Denies hematochezia, Denies diarrhea, Denies nausea, Denies vomiting and Denies hematemesis Musculoskeletal: Musculoskeletal: Denies abnormal gait, Denies deformity, Denies joint swelling, Denies limited range of motion, Denies neck pain and Denies numbness Neurologic: Denies Abnormal speech present, Denies abnormal gait, Denies confusion, Denies dizziness, Denies headache(s), Denies focal weakness, Denies loss of vision, Denies numbness, Denies Other visual disturbances, Denies Sensory deficit (Neuro) and Denies weakness Psychiatric: Psychiatric: Denies confusion, Denies depression, Denies auditory hallucinations, Denies homicidal ideation and Denies suicidal ideation Endocrine: Endocrine: Denies cold intolerance, Denies excessive sweating, Denies fatigue, Denies heat intolerance and Denies palpitations Hematologic/Lymphatic: Hematologic/Lymphatic: Denies easy bleeding and Denies easy bruising Allergic/Immunologic: Allergic/Immunologic: Denies lip swelling, Denies throat swelling and Denies tongue swelling [facility] Past Medical History Medical History (Updated 09/01/20 @ 18:50 by Joseph Babb MD) Aortic regurgitation [id number] regurgitation noted on transesophageal echocardiogram February [address] Field. Bilateral cataracts Maturing. Depression Diabetic nephropathy Diabetic peripheral neuropathy Diverticulosis of intestine, part unspecified, without perforation or abscess with bleeding With last colonoscopy: 2014 Dysphagia Lumbar degenerative disc disease Mild coronary artery disease Cardiac catheterization October 2018 which demonstrated 20% stenosis a branch of the LAD otherwise had normal coronary arteries. Nonerosive esophageal reflux disease Noted on EGD from July 2019. JAMEEL (obstructive sleep apnea) Restrictive lung disease Schatzki's ring Noted on EGD performed by Dr. Hunter July 2019. Suspected s
[2020-09-01 15:12] LABS: Basophils Percent Auto 0.4 % (0.2-1.2); Eosinophils Absolute Auto 0.1 K/mm3 (0-0.3); Hematocrit 46.3 % (42.0-52.0); Hemoglobin 16.6 g/dL (14.0-18.0); Immature Granulocyte Absolute 0.02 K/mm3 (0.00-0.031); Immature Granulocyte Percent A 0.3 % (0-0.5); Lymphocytes Percent Auto 33.7 % (18.3-44.2); Mean Corpuscular HGB Conc 35.9 g/dl (32-36); Mean Corpuscular Hemoglobin 30.1 pg (26-34); Mean Corpuscular Volume 83.9 fl (80-100); Mean Platelet Volume 10.1 fl (7.4-10.4); Monocytes Absolute Auto 0.8 K/mm3 (0.1-0.6); Monocytes Percent Auto 10.8 % (2.6-8.5); Neutrophils Absolute Auto 3.8 K/mm3 (1.3-6.7); Neutrophils Percent Auto 52.8 % (45.5-73.1); Platelet Count Result 252 k/mm3 (150-375); Red Blood Count 5.52 M/mm3 (4.6-6.20); Red Cell Distribution Width 13.1 % (11.5-14.5); White Blood Count 7.1 K/mm3 (4.5-10.0)
[2020-09-01 15:23] LABS: Potassium 3.3 mmol/L (3.4-5.0)
[2020-09-01 15:24] LABS: INR 0.9; Partial Thromboplastin Time 27.5 SECONDS (22.3-36.8); Prothrombin Time 12.9 Seconds (11.1-14.7)
[2020-09-01 15:33] LABS: Anion Gap 10 mmol/L (8-16); Blood Urea Nitrogen 21 mg/dL (9-20); Calcium 9.6 mg/dL (8.4-10.2); Carbon Dioxide 31 mmol/L (22-30); Chloride 98 mmol/L (98-107); Estimated CRCL calculation 115 ml/min; Estimated Glomerular Filt Rate > 60; Glucose 187 mg/dL (75-110); Sodium 139 mmol/L (137-145)
[2020-09-01 15:41] LABS: Troponin I 0.043 ng/mL (0.000-0.034)
[2020-09-01 16:12] LABS: D Dimer 0.34 ug/mL (<0.48)
[2020-09-01 17:58] LABS: Troponin I 0.051 ng/mL (0.000-0.034)
== END 2020-09-01 19:10 | disposition home or self-care (01) ==
PROVIDERS: Emergency Medicine; Emergency Provider Emergency Medicine; PCP Family Medicine
DX: R00.2 Palpitations (principal); I35.1 Nonrheumatic aortic (valve) insufficiency; E11.21 Type 2 diabetes mellitus with diabetic nephropathy; E11.42 Type 2 diabetes mellitus with diabetic polyneuropathy; M51.36 Other intervertebral disc degeneration, lumbar region; I25.10 Atherosclerotic heart disease of native coronary artery without angina pectoris; K21.9 Gastro-esophageal reflux disease without esophagitis; H26.9 Unspecified cataract
CPT/HCPCS: 36415; 71046; 80048; 84484; 85025; 85380; 85610; 85730; 93005; 99284

== ENCOUNTER 2020-12-02 07:30 | Outpatient (CLI) | payer OTHER, SELFPAY ==
--- NOTE | ~2020-12-02 | US_ITS ---
EXAMINATION: US abdomen limited DATE: 12/02/2020 08:05 INDICATION: Right upper quadrant abdominal pain. TECHNIQUE: Multiple grayscale and Doppler ultrasound images of the abdomen were obtained. COMPARISON: CT abdomen and pelvis 04/09/2020 FINDINGS: The pancreas is obscured by bowel gas. There is diffuse hepatic steatosis. There is normal flow in main portal vein. The gallbladder is normal in size and contains sludge. No gallstones or gal lbladder wall thickening. There is no sonographic Aguilar sign. The common duct is normal and measures 4 mm. IMPRESSION: 1. Diffuse hepatic steatosis. Reviewed, dictated and finalized at location A. ATION MANAGER
== END 2020-12-02 07:31 | disposition home or self-care (01) ==
PROVIDERS: PCP Family Medicine; Visit Provider Family Medicine
DX: R10.11 Right upper quadrant pain (principal); K76.0 Fatty (change of) liver, not elsewhere classified
CPT/HCPCS: 76705

== ENCOUNTER 2020-12-19 07:24 | Outpatient (CLI) | payer OTHER, SELFPAY ==
--- NOTE | ~2020-12-19 | NM_ITS ---
EXAMINATION: NM hepatobiliary wo pharm DATE: 12/19/2020 11:23 CDT INDICATION: Right upper quadrant pain COMPARISON: Limited ultrasound dated 12/02/2020. TECHNIQUE: 5.2 mCi Tc-99m mebrofenin (Choletec) was administered intravenously. Scintigraphic images of the abdomen were obtained for one hour. At the 1 hour time point, the patient drank 8 oz Ensure, and imaging was continued for 60 minutes. Gallbladder ejection fraction was calculated by the technol ogist. FINDINGS: There is normal clearance of radiotracer from the blood pool. There is homogeneous tracer u ptake by the liver. Activity progresses to the bowel and gallbladder. The gallbladder ejection fract ion is 23%. Note that with this technique, normal GBEF >= 33%. IMPRESSION: 1. Gallbladder ejection fraction below normal limits measuring 23%. Reviewed, dictated and finalized at location A.
== END 2020-12-19 07:25 | disposition home or self-care (01) ==
LOC: ANHIMG 07:29
PROVIDERS: PCP Family Medicine; Visit Provider Physician Assistant
DX: R10.11 Right upper quadrant pain (principal)
CPT/HCPCS: 78226; A9537

== ENCOUNTER 2021-04-19 08:19 | Observation (INO) | payer OTHER, SELFPAY ==
[2021-04-19] VITALS (19 sets, daily range): BP systolic 128–212; BP diastolic 48–76; PULSE 62–77; RESP 14–20; TEMP 36.5–37.2; O2SAT 95–100; BMI 48.1
--- NOTE | ~2021-04-19 | XR_ITS ---
EXAMINATION: XR chest 2V DATE: 04/19/2021 08:41 INDICATION: Chest pain TECHNIQUE: PA and lateral views of the chest are obtained. COMPARISON: 09/01/2020 FINDINGS: The lungs are free of acute opacities. There is no pleural effusion or pneumothorax. The ca rdiomediastinal silhouette is normal. There is moderate thoracic spondylosis. IMPRESSION: 1. No acute cardiopulmonary abnormality. Reviewed, dictated and finalized at location B.
--- NOTE | 2021-04-19 08:27 | ECG_ITS ---
Measurements Intervals [place] Rate: 74 P: 50 TX: 237 QRS: -42 QRSD: 109 T: -24 QT: 397 QTc: 442 Interpretive Statements SINUS RHYTHM WITH FIRST DEGREE AV BLOCK LEFT AXIS DEVIATION LEFT VENTRICULAR HYPERTROPHY WITH ST-T CHANGE ANTEROSEPTAL INFARCT, AGE INDETERMINATE BORDERLINE T WAVE ABNORMALITY- INF/LAT LEADS BASELINE ARTIFACT- I, II, III, AVL ABNORMAL ECG Electronically Signed On 04-19-2021 8:39:14 CDT by Evan Salcido D.O.
--- NOTE | 2021-04-19 08:37 | PC.NURSE ---
Pt to xray.
[2021-04-19 08:49] LABS: Basophils Percent Auto 0.7 % (0.2-1.2); Eosinophils Absolute Auto 0.1 K/mm3 (0-0.3); Eosinophils Percent Auto 1.3 % (0-4.4); Hematocrit 43.4 % (42.0-52.0); Hemoglobin 15.2 g/dL (14.0-18.0); Immature Granulocyte Absolute 0.02 K/mm3 (0.00-0.031); Immature Granulocyte Percent A 0.3 % (0-0.5); Lymphocytes Absolute Auto 1.56 K/mm3 (0.9-3.2); Lymphocytes Percent Auto 26.1 % (18.3-44.2); Mean Corpuscular Hemoglobin 29.9 pg (26-34); Mean Corpuscular Volume 85.3 fl (80-100); Monocytes Absolute Auto 0.5 K/mm3 (0.1-0.6); Neutrophils Absolute Auto 3.8 K/mm3 (1.3-6.7); Neutrophils Percent Auto 63.6 % (45.5-73.1); Platelet Count Result 213 k/mm3 (150-375); Red Blood Count 5.09 M/mm3 (4.6-6.20); Red Cell Distribution Width 13.1 % (11.5-14.5)
[2021-04-19 08:59] LABS: INR 0.9; Prothrombin Time 12.5 Seconds (11.1-14.7)
[2021-04-19 09:00] LABS: Partial Thromboplastin Time 27.4 SECONDS (22.3-36.8)
[2021-04-19 09:08] LABS: Anion Gap 10 mmol/L (8-16); Blood Urea Nitrogen 19 mg/dL (9-20); Calcium 9.4 mg/dL (8.4-10.2); Carbon Dioxide 29 mmol/L (22-30); Chloride 96 mmol/L (98-107); Estimated CRCL calculation 132 ml/min; Estimated Glomerular Filt Rate > 60; Glucose 234 mg/dL (65-110); Potassium 3.5 mmol/L (3.4-5.0); Sodium 135 mmol/L (137-145)
--- NOTE | 2021-04-19 09:20 | PC.NURSE ---
called lab and talked to Jana keita on a Lipase at 0951
[2021-04-19 09:23] LABS: Troponin I 0.044 ng/mL (0.000-0.034)
[2021-04-19 09:39] LABS: Lipase 128 U/L (23-300)
[2021-04-19] MEDS: ASPIRIN 81 MG CHEWABLE TABLET 324 MG PO (09:50)
[2021-04-19] MEDS: LIDOCAINE HCL 2% VISC SOLN 15 ML UDC 20 ML PO (09:53)
[2021-04-19] MEDS: MAG HYDROX/AL HYDROX/SIMETH 30 ML UDC PO (09:53)
[2021-04-19] MEDS: PANTOPRAZOLE SODIUM IV 40 MG VIAL IV PUSH (09:54)
--- NOTE | 2021-04-19 10:49 | PC.NURSE ---
called lab and talked to Damari added on a Hepatic at [phone]
[2021-04-19 11:04] LABS: Alanine Aminotransferase 53 U/L (4-50); Albumin Level 4.6 g/dL (3.5-5.1); Alkaline Phosphatase 73 U/L (38-126); Aspartate Amino Transferase 48 U/L (17-59); Bilirubin,Total 0.7 mg/dL (0.2-1.3)
[2021-04-19] MEDS: NITROGLYCERIN SL 0.4 MG TABLET SUBLINGUAL ×2 (11:18→15:14)
--- NOTE | 2021-04-19 11:53 | ED.CHESTPAIN ---
HPI - Chest Pain General Chief Complaint: Chest Pain Stated Complaint: CHEST PAIN XTD Time Seen by Provider: 04/19/21 09:09 Source: patient and RN notes reviewed Mode of arrival: ambulatory Limitations: no limitations History of Present Illness HPI narrative: Patient is a 70-year-old male who presents to emergency department for evaluation of midepigastric chest discomfort and abdominal discomfort that began at 2 AM pain has been persistent patient presents noting the pain is not improved notes 7 out of 10 pain does not radiate notes that he had felt fine yesterday notes he has a history of a leaky valve but denies other cardiopulmonary disease Related Data Home Medications Medication Instructions Recorded Confirmed olmesartan 40 mg tablet 40 mg PO DAILY 11/09/19 04/04/21 isosorbide mononitrate 30 mg PO DAILY 07/28/20 04/04/21 ah-rmm-azcfd acid-lutein 1 tablet PO DAILY 07/28/20 04/04/21 Allergies Allergy/AdvReac Type Severity Reaction Status Date / Time iodine Allergy Unknown Itching Verified 04/19/21 08:35 Contrast Media Allergy Unknown Itching Uncoded 04/19/21 08:35 Review of Systems Review of Systems: All systems reviewed & are unremarkable except as noted in HPI and below PMFSH Past Medical History Medical History Aortic regurgitation Obzk-nz-bllyzfhs regurgitation noted on transesophageal echocardiogram February [address] Field. Bilateral cataracts Maturing. Depression Diabetic nephropathy Diabetic peripheral neuropathy Diverticulosis of intestine, part unspecified, without perforation or abscess with bleeding With last colonoscopy: 2014 Dysphagia Lumbar degenerative disc disease Mild coronary artery disease Cardiac catheterization October 2018 which demonstrated 20% stenosis a branch of the LAD otherwise had normal coronary arteries. Nonerosive esophageal reflux disease Noted on EGD from July 2019. JAMEEL (obstructive sleep apnea) Restrictive lung disease Schatzki's ring Noted on EGD performed by Dr. Hunter July 2019. Suspected sleep apnea Type 2 diabetes mellitus Hemoglobin A1c was 7.5% in February 2020. Venous insufficiency of both lower extremities Surgical History Surgical History History of carpal tunnel release (~2004) History of repair of right rotator cuff (~1997) Status post arthroscopy of left knee Family History Family History Father Diabetes mellitus Lung cancer Mother Hypertension Alzheimer's dementia Sibling Hypertension Renal cancer Social History Social History Social History: Surrogate decision maker: Doris Miller. Code status: Full code. Smoking status: Never smoker Second hand tobacco smoke exposure: No Alcohol intake: never Substance use: never Substance use type: does not use Additional living arrangements comments: He is single and has no children. 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 Gender identity (if verbalized by the patient): Male Spiritual care concerns: No Exam Narrative: Exam Narrative: GENERAL: Well-appearing, obese, and in no acute distress. HEAD: Normocephalic, atraumatic. EYES: PERRLA and EOMI. ENT: Nares clear, no rhinorrhea or epistaxis. Mucous membranes moist. CHEST: Clear to auscultation. No respiratory distress. No wheezes rales or rhonchi HEART: Regular rate and rhythm. No murmur heard. Normal peripheral pulses. ABDOMEN: Soft, epigastric tenderness, nondistended EXTREMITIES: Normal range of motion. No edema. SKIN: Warm, dry, no rash. NEURO: No focal deficits. Alert and oriented x3. Cranial nerves II through XII grossly intact PSYCH: Normal mood and affect. Course Course Emergency C
--- NOTE | 2021-04-19 12:07 | PC.NURSE ---
called lab talked to Damari at 1207 and added on a lipid panel
[2021-04-19 12:18] LABS: Cholesterol 149 mg/dL (0-200); HDL Direct 29 mg/dL; Triglycerides 268 mg/dL (<150)
[2021-04-19 12:29] LABS: LDL Cholesterol Direct 68 mg/dL
[2021-04-19 12:32] LABS: Troponin I 0.041 ng/mL (0.000-0.034)
[2021-04-19] MEDS: MORPHINE SULFATE (*CRX) 2 MG/ML INJ IV PUSH ×2 (12:55→15:08)
[2021-04-19 13:05] LABS: Glucose Point of Care 183 mg/dl (65-105)
--- NOTE | 2021-04-19 14:05 | ECG_ITS ---
Measurements Intervals [place] Rate: 72 P: 35 OR: 223 QRS: -37 QRSD: 118 T: -35 QT: 393 QTc: 432 Interpretive Statements SINUS RHYTHM WITH FIRST DEGREE AV BLOCK LEFT AXIS DEVIATION INTRAVENTRICULAR CONDUCTION DELAY LEFT VENTRICULAR HYPERTROPHY AND ST-T CHANGE CANNOT RULE OUT SEPTAL INFARCT, AGE INDETERMINATE BORDERLINE T WAVE ABNORMALITY- ANTEROLAT/INF LEADS ABNORMAL ECG Electronically Signed On 04-19-2021 14:23:33 CDT by Evan Salcido D.O.
[2021-04-19 15:50] LABS: Troponin I 0.044 ng/mL (0.000-0.034)
--- NOTE | 2021-04-19 15:50 | PC.NURSE ---
This patient, Sharif Todd, was admitted to IMU Room 214-01. Patient/family oriented to hospital policies and general routines including ID bracelet, bed and alarms, visiting hours, pain management, procedures, bathroom and other care routines, personal items, smoking policy, room service/diet, and visiting hours. Information on how to activate the Rapid Response Team has been discussed. Patient/Family are encouraged to report perceived risks to care and to ask questions if they do not understand what they are told or what they should do.
--- NOTE | 2021-04-19 15:57 | PM.IMHP ---
H&P: HPI History of Present Illness Date/Time: 04/19/21 15:57 Chief Complaint: Epigastric abd pain Narrative: the patient is a 70-year-old man with a history of nonerosive esophageal reflux disease from EGD July 2019, minimal coronary artery disease from cardiac catheterization in 2018, diabetes with peripheral neuropathy, JAMEEL on CPAP, who presented to the emergency room with epigastric pain which occurred at 2:30 a.m. this morning will come up from sleeping. The patient states my stomach is killing me . he tried to take some Nexium, Pepcid, drink some milk without any improvement of his stomach pain. The patient's pain was 7/10 and not getting any better so he decided to come to the emergency room for further evaluation workup. Denies any radiation of his pain. He received Mylanta, lidocaine, morphine x2 without much improvement of his symptoms. He was also given sublingual nitro. he cannot time which medication has overall helped the most with his symptoms, but now he is only having mild discomfort. He did have mild nausea associated, no vomiting. He is unsure if this is actually chest pain or coming from his epigastric area so he came in. He has been taking 4 200 mg ibuprofen twice daily for years due to some arthritis pain. He denies any melena or hematochezia. Last night he did not have anything abnormal for dinner it included a pork trap, cucumbers anti baked potato. He did have some gooey better cake around 8:00 p.m. but he was sitting up for at least another 2 hours after eating before going to bed for the night. He states this is not his normal heartburn or GERD symptoms and it was different . Patient reports longstanding dyspnea with exertion as well as leg pain with walking long distances which has been going on for years and states it might be a little worse lately. His hemoglobin A1c was recently 7.1%. he has been taoist with his CPAP usage at night. He denies any fevers, chills, shortness of breath at rest, cough, constipation, leg swelling, calf pain, waking, orthopnea, palpitations, lightheadedness, dizziness, urinary symptoms, or any other symptoms at this time. Code Status: Full Code POA: melo Miller Review of Systems Review of Systems: All systems reviewed & are unremarkable except as noted in HPI and below PMFSH Past Medical History Medical History Aortic regurgitation Brkz-qj-waucijku regurgitation noted on transesophageal echocardiogram February [address] Field. Bilateral cataracts Maturing. Depression Diabetic nephropathy Diabetic peripheral neuropathy Diverticulosis of intestine, part unspecified, without perforation or abscess with bleeding With last colonoscopy: 2014 Dysphagia Lumbar degenerative disc disease Mild coronary artery disease Cardiac catheterization October 2018 which demonstrated 20% stenosis a branch of the LAD otherwise had normal coronary arteries. Nonerosive esophageal reflux disease Noted on EGD from July 2019. JAMEEL (obstructive sleep apnea) Restrictive lung disease Schatzki's ring Noted on EGD performed by Dr. Hunter July 2019. Suspected sleep apnea Type 2 diabetes mellitus Hemoglobin A1c was 7.5% in February 2020. Venous insufficiency of both lower extremities Surgical History Surgical History History of carpal tunnel release (~2004) History of repair of right rotator cuff (~1997) Status post arthroscopy of left knee Family History Family History Father Diabetes mellitus Lung cancer Mother Hypertension Alzheimer's dementia Sibling Hypertension Renal cancer Social History Social History Social History: Surrogate decision maker: Doris Miller. Code status: Full code. Smoking status: Never
[2021-04-19 17:08] LABS: Glucose Point of Care 177 mg/dl (65-105)
[2021-04-19 20:26] LABS: Glucose Point of Care 231 mg/dl (65-105)
[2021-04-19] MEDS: ISOSORBIDE MONONITRATE 30 MG TAB.ER.24H PO (21:28)
[2021-04-19] MEDS: METOPROLOL SUCCINATE EXT REL 50 MG TABCR PO (21:29)
[2021-04-19] MEDS: NIFEdipine 30 MG TAB.ER.24 90 MG PO (21:31)
[2021-04-19] MEDS: OLMESARTAN MEDOXOMIL 20 MG TABLET 40 MG PO (21:31)
[2021-04-19] MEDS: PANTOPRAZOLE 40 MG TABLET PO (22:14)
[2021-04-20] VITALS (8 sets, daily range): BP systolic 146–153; BP diastolic 47–51; PULSE 53–75; RESP 18–20; TEMP 36.2–36.6; O2SAT 95–98
[2021-04-20 05:45] LABS: Alanine Aminotransferase 50 U/L (4-50); Alkaline Phosphatase 54 U/L (38-126); Anion Gap 11 mmol/L (8-16); Aspartate Amino Transferase 43 U/L (17-59); Bilirubin,Total 0.7 mg/dL (0.2-1.3); Blood Urea Nitrogen 21 mg/dL (9-20); Calcium 9.4 mg/dL (8.4-10.2); Carbon Dioxide 31 mmol/L (22-30); Chloride 92 mmol/L (98-107); Estimated CRCL calculation 105 ml/min; Estimated Glomerular Filt Rate > 60; Glucose 199 mg/dL (65-110); Magnesium 1.9 mg/dL (1.6-2.3); Sodium 134 mmol/L (137-145)
[2021-04-20] MEDS: ACETAMINOPHEN 325 MG TABLET 650 MG PO (08:06)
[2021-04-20] MEDS: SERTRALINE HCL 50 MG TABLET PO (08:08)
[2021-04-20] MEDS: ISOSORBIDE MONONITRATE 30 MG TAB.ER.24H PO (08:09)
[2021-04-20] MEDS: NIFEdipine 30 MG TAB.ER.24 90 MG PO (08:09)
[2021-04-20] MEDS: PANTOPRAZOLE 40 MG TABLET PO (08:09)
[2021-04-20] MEDS: ENOXAPARIN 40 MG/0.4 ML SYRINGE SUB-Q (08:09)
--- NOTE | 2021-04-20 09:36 | PM.CNCAR ---
Assessment and Plan Additional Plan 1- epigastric abdominal pain, suspect NSAID gastritis 2- minimal troponin elevation likely demand ischemia from uncontrolled hypertension 3- uncontrolled hypertension 4- hypokalemia this morning 5- morbid obesity 6- sleep apnea this 70-year-old patient with history of [id number] aortic valve regurgitation, morbid obesity, hypertension, diabetes, sleep apnea who presents with epigastric abdominal pain. He endorses taking ibuprofen 800 mg twice a day. His blood pressure on presentation was very high 221/120. minimal elevation troponin likely secondary to demand ischemia. Denies chest pain. EKG does not show acute ischemic changes. Reports cough negative cardiac catheterization at [facility] 2018. his blood pressures are better this morning./ - Abstain from NSAID or reduce the NSAIDs. - increase Protonix dose. - replenish potassium - will arrange for outpatient echocardiogram because patient complains of dyspnea on exertion. Reassess the severity of the aortic valve regurgitation. He will be also seeing Dr. Field as an outpatient. - can be discharged home from cardiac standpoint History of Present Illness History of Present Illness Consult date/time: date of zhnwovz03/22/21 09:36 Requesting physician: Delfino Daly PA-C Consult reason: chest pain Reason For Visit: CHEST PAIN ELEVATED TROPONIN Narrative: This 70-year-old patient with past medical history of hypertension, diabetes, GERD, anxiety. morbid obesity, sleep apnea. He follows up with Cardiology at with Dr. Field. last cardiac catheterization he mentions 2019 at [facility] negative for CAD as patient states. he woke up at 2:00 a.m. in the morning feeling severe epigastric abdominal pain. Denied chest pain, lower limb edema, dizziness, syncope, palpitations. Denied nausea, vomiting. No constipation or diarrhea. He states that he takes ibuprofen 800 mg twice a day because of severe knee pains and back pains. his blood pressure on presentation was 212/120 and remains elevated. serum creatinine is normal, today potassium 3 and on admission was 3.5, hemoglobin 15, chest x-ray reviewed and analyzed by myself looks unremarkable. EKG reviewed and analyzed myself shows sinus rhythm, LVH, poor R-wave progression septal Q-waves. troponin 0.044, 0.041 4 day monitor showed frequent PACs with a total burden 1%. Transesophageal echocardiogram November 2019 shows mild to moderate aortic regurgitation and normal LV systolic function. Review of Systems Constitutional: Constitutional: Denies chills, Denies fever(s) and Denies poor appetite Eyes: Eyes: Denies eye discharge, Denies loss of vision, Denies eye pain and Denies photophobia ENT: Denies dizziness, Denies epistaxis, Denies nasal congestion and Denies sore throat Cardiovascular: Cardiovascular: Denies chest pain, Denies syncope, Denies pedal edema, Denies leg edema, Denies palpitations, Denies dyspnea, Denies dyspnea on exertion and Denies orthopnea Respiratory: Respiratory: Denies cough, Denies dyspnea, Denies dyspnea on exertion and Denies wheezing Gastrointestinal: Gastrointestinal: Reports abdominal pain, Denies diarrhea, Denies nausea and Denies vomiting Genitourinary: Genitourinary: Denies hematuria, Denies genital lesions and Denies dysuria Musculoskeletal: Musculoskeletal: Denies arthralgias, Denies joint swelling and Denies numbness Integumentary/Breasts: Skin/Breast: Denies pruritus and Denies rash Neurologic: Denies dizziness, Denies syncope, Denies loss of vision and Denies numbness Psychiatric: Psychiatric: Denies anxiety and Denies depression Endocrine: Endocrine: Denies cold intolerance, Denies heat intolerance and Denies palpitations Hematologic/Lymphatic: Hematologic/Lymphatic: Denies easy bleeding and Denies easy bruising Allergic/Immunologic: Allergic/Immunologic: Denies urticaria and Denies wheezing PMFSH Past Medical Histo
[2021-04-20] MEDS: METOPROLOL SUCCINATE EXT REL 50 MG TABCR PO (10:27)
[2021-04-20] MEDS: POTASSIUM CHLORIDE 20 MEQ TABLET 40 MEQ PO (10:27)
[2021-04-20] MEDS: POTASSIUM CHLORIDE 20 MEQ TABLET.ER BY MOUTH (10:27)
[2021-04-20] MEDS: LORATADINE 10 MG TABLET PO (10:28)
[2021-04-20] MEDS: OLMESARTAN MEDOXOMIL 20 MG TABLET 40 MG PO (10:28)
[2021-04-20] MEDS: CHLORTHALIDONE 25 MG TABLET PO (10:29)
[2021-04-20 11:11] LABS: Glucose Point of Care 193 mg/dl (65-105)
--- NOTE | 2021-04-20 11:47 | PM.DS ---
DS: Admitting Diagnosis Admitting Diagnosis Admitting Diagnosis: Chest pain DS: Discharge Diagnosis Discharge Diagnosis (1) Abdominal pain, acute, epigastric: Code(s): R10.13 - Epigastric pain Status: Acute Assessment and Plan: The patient is a 70-year-old man with a history of nonerosive esophageal reflux disease from EGD July 2019, minimal coronary artery disease from cardiac catheterization in 2019, diabetes with peripheral neuropathy, JAMEEL on CPAP, who presented to the emergency room with continued epigastric pain which woke him up from sleep at 2:30 a.m. prior to arrival. The patient states my stomach is killing me . Without improvement with home remedies of Nexium, Pepcid, or milk. Initial labs were unremarkable, CBC, Coag panel, slight hyponatremia at 135. Glu 234. Troponins flat at 0.044, 0.041, 0.044. CXR showed No acute cardiopulmonary abnormality. EKG showed NSR, rate 74, 1st degree AV block, with no acute ST-T wave changes Or signs of acute ischemia. Cardiology was consulted on the patient and believe his symptoms are related to NSAID use, states minimal troponin elevation likely demand ischemia from uncontrolled hypertension. cardiology recommended abstaining from NSAIDs or reduce the NSAID usage. We are going to increase the patient's Protonix to 40 mg twice daily for least 1 month and have him follow-up with his primary care provider in 1 week for further evaluation. Also recommend following up with the GI specialist he may needed EGD to see if he has any type of gastritis or ulcers. The patient will follow-up with his biochemical development engineer, Dr. Field as an outpatient and they will range for a repeat echocardiogram for further monitoring of his aortic valve regurgitation, Which he is supposed to have every 6 months. the patient is not on any aspirin therapy at home, I talked with the cardiology team who does not recommend putting him on a baby aspirin at this time since he may have an underlying GI issue from NSAID use. We will have him follow-up with his biochemical development engineer and at that point they can decide if he needs to be placed on any form of aspirin/ anticoagulation due to his history. The patient understands and agrees the plan. All questions answered. (2) Elevated troponin: Code(s): R77.8 - Other specified abnormalities of plasma proteins Status: Acute Assessment and Plan: (3) CAD (coronary artery disease): Code(s): I25.10 - Atherosclerotic heart disease of zuni coronary artery without angina pectoris Status: Acute Assessment and Plan: (4) JAMEEL (obstructive sleep apnea): Code(s): G47.33 - Obstructive sleep apnea (adult) (pediatric) Status: Acute Assessment and Plan: . (5) Type 2 diabetes mellitus: Qualifiers: Diabetes mellitus complication status: without complication Diabetes mellitus prison insulin use: without prison use Qualified Code(s): E11.9 - Type 2 diabetes mellitus without complications Code(s): E11.9 - Type 2 diabetes mellitus without complications Status: Acute Assessment and Plan: (6) Hypokalemia: Code(s): E87.6 - Hypokalemia Status: Acute Assessment and Plan: Potassium was 3.0 this morning. Will give oral potassium supplementation. Mag was stable at 1.9. DS: Summary Hospital Course Hospital Course: See above Status at Discharge Cognitive/behavioral status at discharge: Stable, improved. Time Spent with Patient Time attestation: Total time spent providing and/or coordinating discharge services: 46 Time spent: Greater than 30 minutes Exam Narrative: Ex
[2021-04-20] MEDS: ASPIRIN 81 MG CHEWABLE TABLET PO (12:00)
[2021-04-20 17:18] LABS: Glucose Point of Care 205 mg/dl (65-105)
== END 2021-04-20 13:15 | disposition home or self-care (01) ==
LOC: ANHED 11:58 → ANHIMU 15:05
PROVIDERS: Emergency Medicine Emergency Medical Services; Physician Assistant; Admitting Provider Internal Medicine; Emergency Provider Emergency Medicine; PCP Family Medicine; Visit Provider Family Medicine
DX: R10.13 Epigastric pain (principal); E87.6 Hypokalemia; I44.0 Atrioventricular block, first degree; R77.8 Other specified abnormalities of plasma proteins; K21.9 Gastro-esophageal reflux disease without esophagitis; I25.10 Atherosclerotic heart disease of native coronary artery without angina pectoris; E11.42 Type 2 diabetes mellitus with diabetic polyneuropathy; G47.33 Obstructive sleep apnea (adult) (pediatric); R06.09 Other forms of dyspnea; E66.01 Morbid (severe) obesity due to excess calories; Z68.42 Body mass index [BMI] 45.0-49.9, adult; Z79.84 Long term (current) use of oral hypoglycemic drugs
CPT/HCPCS: 36415; 71046; 80048; 80053; 80061; 80076; 82948; 83690; 83735; 84484; 85025; 85610; 85730; 93005; 96372; 96374; 96375; 96376; 99285; A9270; C9113; G0378; J1650; J2270; J3010

== ENCOUNTER 2021-06-14 02:44 | Day surgery (SDC) | payer OTHER, SELFPAY ==
[2021-06-13 13:10] VITALS: BMI 46.8
[2021-06-14] VITALS (28 sets, daily range): BP systolic 151–188; BP diastolic 53–93; PULSE 75–94; RESP 13–25; TEMP 36.3–37; O2SAT 93–99; BMI 46.3
[2021-06-14 08:13] LABS: Basophils Percent Auto 0.1 % (0.2-1.2); Hematocrit 45.4 % (42.0-52.0); Hemoglobin 16.1 g/dL (14.0-18.0); Immature Granulocyte Absolute 0.03 K/mm3 (0.00-0.031); Immature Granulocyte Percent A 0.4 % (0-0.5); Lymphocytes Absolute Auto 0.81 K/mm3 (0.9-3.2); Lymphocytes Percent Auto 11.9 % (18.3-44.2); Mean Corpuscular HGB Conc 35.5 g/dl (32-36); Mean Corpuscular Hemoglobin 29.7 pg (26-34); Mean Corpuscular Volume 83.6 fl (80-100); Mean Platelet Volume 10.5 fl (7.4-10.4); Monocytes Absolute Auto 0.1 K/mm3 (0.1-0.6); Monocytes Percent Auto 1.8 % (2.6-8.5); Neutrophils Absolute Auto 5.8 K/mm3 (1.3-6.7); Neutrophils Percent Auto 85.8 % (45.5-73.1); Platelet Count Result 243 k/mm3 (150-375); Red Blood Count 5.43 M/mm3 (4.6-6.20); Red Cell Distribution Width 12.6 % (11.5-14.5); White Blood Count 6.8 K/mm3 (4.5-10.0)
[2021-06-14 08:36] LABS: Anion Gap 16 mmol/L (8-16); Blood Urea Nitrogen 20 mg/dL (9-20); Calcium 10.1 mg/dL (8.4-10.2); Carbon Dioxide 26 mmol/L (22-30); Chloride 95 mmol/L (98-107); Estimated CRCL calculation 103 ml/min; Estimated Glomerular Filt Rate > 60; Glucose 339 mg/dL (65-110); Potassium 3.5 mmol/L (3.4-5.0); Sodium 137 mmol/L (137-145)
--- NOTE | 2021-06-14 08:55 | WPDMODSED ---
Moderate Sedation Note-Pt Data Patient Data Diagnosis: Chronic aortic regurgitation Present Complaint: no complaints Procedure to be performed/Plan: right and left heart catheterization Allergies Allergy/AdvReac Type Severity Reaction Status Date / Time clarithromycin Allergy Unknown Itching Verified 06/14/21 07:50 Iodinated Contrast Media Allergy Unknown Itching Verified 06/14/21 07:50 Iodine and Iodide Containing Allergy Unknown Itching Verified 06/14/21 07:50 Produc Home Medications Medication Instructions Recorded Confirmed Type olmesartan 40 mg tablet 40 mg PO DAILY 11/09/19 06/13/21 History metoprolol succinate 50 mg 50 mg PO DAILY #60 tablet 01/27/21 06/13/21 Rx tablet,extended release 24 hr chlorthalidone 25 mg tablet 25 mg PO DAILY #30 tablet 05/08/21 06/13/21 Rx nifedipine 30 mg tablet,extended 90 mg PO QAM #90 tablet 05/08/21 06/13/21 Rx release 24 hr sertraline 50 mg tablet 50 mg PO DAILY #90 tablet 05/08/21 06/13/21 Rx eplerenone 50 mg tablet 100 mg PO DAILY #60 tablet 05/12/21 06/13/21 Rx metformin 500 mg PO BID 06/13/21 06/13/21 History multivitamin [Daily Multivitamin] 1 tablet PO DAILY 06/13/21 06/13/21 History pantoprazole 40 mg PO DAILY 06/13/21 06/13/21 History potassium chloride 20 meq PO DAILY 06/13/21 06/13/21 History Current Medications: Active Medications Sodium Chloride (Normal Saline Iv) 500 mls @ 100 mls/hr IV CONT .Q5H NOAH Sedation/Anesthesia: No previous sedation/anesthesia problems (including family history). [facility] Past Medical History Medical History Abdominal pain, acute, epigastric Acalculous cholecystitis Aortic regurgitation Ylhk-[id number]-pxtnekkj regurgitation noted on transesophageal echocardiogram February [address] Field. Bilateral cataracts Maturing. CAD (coronary artery disease) Depression Diabetic nephropathy Diabetic peripheral neuropathy Diverticulosis of intestine, part unspecified, without perforation or abscess with bleeding With last colonoscopy: 2014 Dysphagia Elevated troponin Heart valve disorder Hypokalemia Lumbar degenerative disc disease Mild coronary artery disease Cardiac catheterization October 2018 which demonstrated 20% stenosis a branch of the LAD otherwise had normal coronary arteries. Nonerosive esophageal reflux disease Noted on EGD from July 2019. JAMEEL (obstructive sleep apnea) Restrictive lung disease Schatzki's ring Noted on EGD performed by Dr. Hunter July 2019. Suspected sleep apnea Type 2 diabetes mellitus Hemoglobin A1c was 7.5% in February 2020. Venous insufficiency of both lower extremities Surgical History Surgical History History of carpal tunnel release (~2004) History of repair of right rotator cuff (~1997) Status post arthroscopy of left knee Family History Family History Father Diabetes mellitus Lung cancer Mother Hypertension Alzheimer's dementia Sibling Hypertension Renal cancer Social History Social History Social History: Surrogate decision maker: Doris Miller. Code status: Full code. Smoking status: Never smoker Second hand tobacco smoke exposure: No Alcohol intake: never Substance use: never Substance use type: does not use Living arrangements: alone Additional living arrangements comments: He is single and has no children. 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 Gender identity (if verbalized by the patient): Male Spiritual care concerns: No Mod Sed Physical Exam Physical Exam Pre Procedural Exam: Normal: Throat, Airway, Lungs, Heart Rate, Heart Rhythm ( grade 2/6 diastolic decrescendo murmur audible at the base and the apex), Neuro Exam a
--- NOTE | 2021-06-14 10:19 | WPDCARDPROC ---
Cardiac Cath Procedure Note Date of procedure:: 06/14/21 Performing physician:: Kaushik Field MD Indication:: chronic aortic valve regurgitation, evaluation prior to cardiothoracic surgery consultation Brief clinical history:: this is a 70-year-old man who is known to have chronic aortic regurgitation. Follow-up echocardiogram recently has demonstrated worsening of his aortic regurgitation and enlargement of his left ventricle. He is asymptomatic. Because of these findings surgical aortic valve replacement has been considered. In anticipation of consultation right and left heart catheterization has been scheduled for today. Procedure Procedure performed:: Right and left heart catheterization Sedation/Medication given:: fentanyl 100 mg Versed 2 mg case start time 913 a.m. case end time 10:08 a.m. sedation provided by Petra Naik RN, trained observer Access site:: right femoral artery, right femoral vein Estimated blood loss:: 15-20 cc Procedure note:: the patient was brought to the cardiac catheterization lab in the postabsorptive state the pannus was taped in a cephalad direction and then the right femoral triangle was prepped and draped in a usual fashion. The femoral artery and vein were punctured using the modified Seldinger technique and 5 [place] sheath was placed in the artery and a 7 [place] sheath in the vein. I then used a balloon tip [place]Francis catheter to measure right-sided hemodynamics and thermodilution cardiac outputs and sampled av O2 difference. Following this the [place] catheter was removed. I used a 5 [place] angled pigtail catheter to measure left-sided hemodynamics inject left ventriculography in the MEEK projection and aortic root injection in the 45 degree [place]URK[place] projection. the same pigtail catheter was used to perform a aortic root injection in the 45 degree [place] projection. The pigtail catheter was then removed. I advanced a 5 [place] FL4 catheter into the aortic root to engage left coronary artery. The catheter would not satisfactorily engage the artery for good angiography. I have used multiple other catheters and ultimately settled on a 5 [place] FL 5 catheter for diagnostic angiography. I engaged and injected the right coronary artery using a 5 [place] AL2 catheter. The standard Rasheeda right coronary would not satisfactorily engage the vessel. I also tried a WRP without success. Following this the case was terminated angiogram was done of the femoral artery through the sheath it was determined that the puncture was in the profundus femoral artery and the sheath will be removed with direct manual compression. 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 Findings:: Hemodynamics: Right atrial pressure is 4 mmHg right ventricle 40 over 0 end-diastolic 4. pulmonary artery pressure 34 over 16 pulmonary capillary wedge pressure 9, left ventricle 192 over 0 end-diastolic 7, central aortic pressure 192 over 64. Thermodilution cardiac output measured 9.7 liters/minute giving an index of 3.7. Dora cardiac output was 7.1 liters/minute giving an index of 2.7. Left ventricle: The LV appears to be mildly enlarged there is good systolic contractility in all segments the LV was suboptimally opacified as the catheter was near the base of the ventricle. There were no obvious wall motion abnormalities I would estimate the ejection fraction to be 60%. The left main coronary artery is widely patent the left anterior descending is moderate caliber vessel extending down to and around the apex. The LAD and its branches are smooth and angiographically normal. Circumflex is a moderate caliber artery giving rise to OM branch. The circumflex is relatively short but is smooth and angiographically normal in appearance. The right coronary artery is very large in caliber and dominant to the posterior circulation the rig
[2021-06-14] MEDS: LABETALOL HCL INJ 100 MG/20 ML VIAL 20 MG IV PUSH (10:45)
[2021-06-14] MEDS: hydrALAZINE HCL 20 MG/ML VIAL 10 MG IV PUSH (11:27)
[2021-06-14] MEDS: hydrALAZINE HCL 20 MG/ML VIAL (11:40)
[2021-06-14] MEDS: ACETAMINOPHEN 325 MG TABLET 650 MG PO (13:25)
--- NOTE | 2021-06-14 17:25 | SUR.PHASEII ---
1725 D/C instructions reviewed with patient, questions answered he verbalizes understanding. Report given to Segundo RN, pts R groin dressing clean, dry, and intact, no bleeding or hematoma noted, pedal pulse strong. Pts HOB at 30 degrees done eating supper, awaiting d/c later this evening. Copy of [facility] study pushed to Kalyn for pts later valve appt with surgeon.
--- NOTE | 2021-06-14 19:29 | SUR.PHASEII ---
1922-Day shift RN did not get patient up at 7pm as ordered. Assisted patient up to recliner. Right groin dressing C/D/I. No hematoma noted.
--- NOTE | 2021-06-14 20:29 | SUR.PHASEII ---
2024-Pt's IV DC'd, catheter intact. VSS. No changes at right groin puncture site. No hematoma noted. Pt dressed and transported via wheelchair to hospital entrance where his niece picked him up.
== END 2021-06-14 20:25 | disposition home or self-care (01) ==
PROVIDERS: PCP Family Medicine; Visit Provider Specialist
PROC: 4A023N8 Measurement of Cardiac Sampling and Pressure, Bilateral, Percutaneous Approach (ICD-10-PCS; CPT 93453; principal; 2021-06-14 08:30)
DX: Z01.810 Encounter for preprocedural cardiovascular examination (principal); I35.1 Nonrheumatic aortic (valve) insufficiency; E11.42 Type 2 diabetes mellitus with diabetic polyneuropathy; G47.33 Obstructive sleep apnea (adult) (pediatric); K21.9 Gastro-esophageal reflux disease without esophagitis; F32.9 Major depressive disorder, single episode, unspecified; I87.2 Venous insufficiency (chronic) (peripheral); Z79.84 Long term (current) use of oral hypoglycemic drugs
CPT/HCPCS: 36415; 80048; 85025; 93460; A9270; C1887; C1894; J0360; J1644; J2250; J3010; J7040

== ENCOUNTER 2021-10-18 11:41 | Outpatient (CLI) | payer OTHER, SELFPAY ==
[2021-10-18 13:32] LABS: Alanine Aminotransferase 27 U/L (4-50); Albumin Level 4.7 g/dL (3.5-5.1); Alkaline Phosphatase 90 U/L (38-126); Anion Gap 10 mmol/L (8-16); Aspartate Amino Transferase 33 U/L (17-59); Bilirubin,Total 0.4 mg/dL (0.2-1.3); Blood Urea Nitrogen 26 mg/dL (9-20); Calcium 9.9 mg/dL (8.4-10.2); Carbon Dioxide 36 mmol/L (22-30); Chloride 92 mmol/L (98-107); Estimated Glomerular Filt Rate > 60; Glucose 159 mg/dL (65-110); Potassium 2.7 mmol/L (3.4-5.0); Sodium 138 mmol/L (137-145)
== END 2021-10-18 11:42 | disposition home or self-care (01) ==
PROVIDERS: PCP Family Medicine; Visit Provider Family Medicine
DX: E87.6 Hypokalemia (principal)
CPT/HCPCS: 36415; 80053

== ENCOUNTER → 2021-11-20 15:27 | Outpatient (CLI) | payer OTHER, SELFPAY ==
--- NOTE | ~2021-11-20 | XR_ITS ---
XR knee LT 2V 11/20/2021 15:57 Indication: Left knee pain Procedure: 2 views left knee Comparison: No prior studies for comparison. Findings: No fracture, subluxation or dislocation. There is mild patellofemoral compartment osteoarth ritis. No significant joint effusion. Impression: 1: No foreign bodies. Mild patellofemoral compartment osteoarthritis. Reviewed, dictated and finalized at location B. [facility] Impression: 1: No foreign bodies. Mild patellofemoral compartment osteoarthritis.
--- NOTE | ~2021-11-20 | XR_ITS ---
XR knee RT 2V 11/20/2021 15:56 Indication: Osteoarthritis of the knees. Procedure: 2 views right knee Comparison: 08/04/2020 Findings: Mild tricompartment osteoarthritis. Small joint effusion. No fracture, subluxation or dislo cation. No significant soft tissue abnormality. Impression: 1: Mild osteoarthritis of the right knee. Reviewed, dictated and finalized at location B. REPAIRER Impression: 1: Mild osteoarthritis of the right knee.
== END ==
PROVIDERS: PCP Family Medicine; Visit Provider Nurse Practitioner Adult Health
DX: M17.0 Bilateral primary osteoarthritis of knee (principal)
CPT/HCPCS: 73560

== ENCOUNTER 2021-12-20 09:45 | Outpatient (RCR) | payer OTHER, SELFPAY ==
[2021-09-26 09:04] VITALS: PULSE 88
[2021-09-26 10:20] VITALS: PULSE 88
[2021-10-05 11:02] LABS: Glucose Point of Care 224 mg/dl (65-105)
== END 2021-12-20 10:56 | disposition home or self-care (01) ==
LOC: ANHCPREHAB 09:45
PROVIDERS: PCP Family Medicine; Visit Provider Nurse Practitioner Adult Health
DX: Z95.2 Presence of prosthetic heart valve (principal)
CPT/HCPCS: 93798

== ENCOUNTER → 2022-10-02 16:09 | Outpatient (CLI) | payer OTHER, SELFPAY ==
--- NOTE | ~2022-10-02 | XR_ITS ---
Clinical Indication: Dyspnea PA and lateral views of the chest: Comparison: 04/19/2021 Findings: The lungs are clear, without evidence of focal consolidation or pleural effusion. Cardiome diastinal silhouette is stable, status post interval median sternotomy and cardiac valve replacement. Bones and soft tissues are unremarkable. Impression: Clear lungs. Status post cardiac valve replacement. Reviewed, dictated and finalized at location . 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 Status post cardiac valve replacement.
== END ==
PROVIDERS: PCP Family Medicine; Visit Provider Family Medicine
DX: R06.00 Dyspnea, unspecified (principal)
CPT/HCPCS: 71046

== ENCOUNTER 2023-06-21 10:39 | Emergency (ER) | payer OTHER, SELFPAY ==
--- NOTE | 2023-06-21 10:57 | ED.GENADULT ---
HPI - General Adult General Chief complaint: Nausea/Vomiting/Diarrhea Stated complaint: fever,vomiting,aches Time Seen by Provider: 06/21/23 11:06 History of Present Illness HPI narrative: 72-year-old male, with a history of NIDDM, HTN, GERD, AR, aortic regurg s/p AVR w/ bioprosthetic valve,?presented for complaint of body aches for 2 days. Also reports at the onset of symptoms he had few episodes of vomiting and a sore throat. He states his throat pain has resolved. Continues to have nausea and decreased appetite. Denies shortness of breath, wheezing, lethargy, fevers or chills. Denies known sick contacts. Not taking anything for symptoms. patient has taken 2 negative COVID tests since onset of symptoms. Related Data Home Medications Medication Instructions Recorded Confirmed multivitamin 1 tablet PO DAILY 06/13/21 06/21/23 aspirin 81 mg tablet,delayed 81 mg PO DAILY 08/07/21 06/21/23 release (Adult Low Dose Aspirin) loratadine 10 mg tablet 10 mg PO DAILY 09/04/21 06/21/23 docusate sodium 100 mg capsule 100 mg PO DAILY 09/26/21 06/21/23 (Colace) semaglutide 1 mg/dose (2 mg/1.5 1 mg subcut WEEKLY 05/07/22 06/21/23 mL) subcutaneous pen injector (Ozempic) Allergies Allergy/AdvReac Type Severity Reaction Status Date / Time clarithromycin Allergy Unknown Itching Verified 06/21/23 10:56 Iodinated Contrast Media Allergy Unknown Itching Verified 06/21/23 10:56 Iodine and Iodide Containing Allergy Unknown Itching Verified 06/21/23 10:56 Produc metformin AdvReac Intermediate diarrhea Verified 06/21/23 10:56 Review of Systems Review of Systems: CONSTITUTIONAL: Reports body aches, Denies fever, chills, or sweats. EYES: Denies visual changes, redness, or discharge. ENT: Denies rhinorrhea, congestion, or otalgia. CARDIOVASCULAR: Denies chest pain, palpitations, or edema. RESPIRATORY: Denies dyspnea. GASTROINTESTINAL: Denies abdominal pain, nausea, vomiting, or diarrhea. SKIN: Denies rash, itching, or wounds. MUSCULOSKELETAL: Denies back pain, joint pain, or myalgia. NEUROLOGIC: Denies headache PMFSH Past Medical History Medical History Abdominal pain, acute, epigastric Acalculous cholecystitis Aortic regurgitation s/p bioprosthetic AVR Bilateral cataracts Maturing. CAD (coronary artery disease) Depression Diabetic nephropathy Diabetic peripheral neuropathy Diverticulosis of intestine, part unspecified, without perforation or abscess with bleeding With last colonoscopy: 2014 Dysphagia Elevated troponin Heart valve disorder Hypokalemia Lumbar degenerative disc disease Mild coronary artery disease Cardiac catheterization October 2018 which demonstrated 20% stenosis a branch of the LAD otherwise had normal coronary arteries. Nonerosive esophageal reflux disease Noted on EGD from July 2019. JAMEEL (obstructive sleep apnea) Restrictive lung disease Schatzki's ring Noted on EGD performed by Dr. Hunter July 2019. Suspected sleep apnea Type 2 diabetes mellitus Hemoglobin A1c was 7.5% in February 2020. Venous insufficiency of both lower extremities Surgical History Surgical History History of aortic valve replacement History of carpal tunnel release (~2004) History of repair of right rotator cuff (~1997) Status post arthroscopy of left knee Family History Family History Father Diabetes mellitus Lung cancer Mother Alzheimer's dementia Hypertension Sibling Renal cancer Hypertension Lymphoma Social History Social History Social History: Surrogate decision maker: Doris Miller. Code status: Full code. Smoking status: Never smoker Second hand tobacco smoke exposure: No Alcohol intake: never Substance use: never Substance use type: does not use
[2023-06-21 11:05] VITALS: BP 101/77; PULSE 95; RESP 16; TEMP 38.4; O2SAT 100
== END 2023-06-21 11:22 | disposition home or self-care (01) ==
PROVIDERS: Emergency Provider Nurse Practitioner Family; PCP Family Medicine
DX: J02.0 Streptococcal pharyngitis (principal); I25.10 Atherosclerotic heart disease of native coronary artery without angina pectoris; E11.42 Type 2 diabetes mellitus with diabetic polyneuropathy; I87.2 Venous insufficiency (chronic) (peripheral); Z95.2 Presence of prosthetic heart valve; H26.9 Unspecified cataract; M51.36 Other intervertebral disc degeneration, lumbar region
CPT/HCPCS: 87804; 87880; 99213; G0463

== ENCOUNTER 2023-11-23 12:47 | Emergency (ER) | payer OTHER, SELFPAY ==
--- NOTE | ~2023-11-23 | XR_ITS ---
EXAMINATION: XR ribs LT 2V Exam Date/Time: 11/23/2023 14:05 BANKING CONSULTANT HISTORY: left posterior rib pain s/p tripping into wall 8 days ago Comparison: 10/02/2022. RESULT: Lines, tubes, and devices: Intact sternotomy wires. Valve replacement. Lungs and pleura: Clear. Cardiothymic silhouette: Stable. Other: No acute osseous or upper abdominal finding. IMPRESSION: No acute osseous finding in the left ribs. Reviewed, dictated and finalized at location K. ING CONSULTANT
[2023-11-23 12:54] VITALS: BP 132/90; PULSE 77; RESP 16; TEMP 37.1; O2SAT 98
--- NOTE | 2023-11-23 13:44 | ED.NAVMDI ---
HPI - Nausea/Vomiting/Diarrhea General Chief complaint: Nausea/Vomiting/Diarrhea Stated complaint: Diarrhea Time Seen by Provider: 11/23/23 13:44 Source: patient Mode of arrival: ambulatory Limitations: no limitations History of Present Illness HPI Narrative: 73 yo M presents with c/o diarrhea for 4 days. Also reports some mild fatigue otherwise feels fine. Had been taking imodium and pepto bismol. Called PCP and was told to take only imodium and eat bland diet. Pt ate divehi muffin and banana for breakfast. Has only had one epidose of diarrhea today. Has ABD cramping only before having diarrhea. Well appearing. Ambulatory with steady gait. also reports pain to L posterior ribs. Lost balance after tripping a week ago and hit ribs against wall. all systems reviewed and negative except as noted above. Related Data Home Medications Medication Instructions Recorded Confirmed multivitamin 1 tablet PO DAILY 06/13/21 11/23/23 aspirin 81 mg tablet,delayed 81 mg PO DAILY 08/07/21 11/23/23 release (Adult Low Dose Aspirin) loratadine 10 mg tablet 10 mg PO DAILY 09/04/21 11/23/23 docusate sodium 100 mg capsule 100 mg PO DAILY 09/26/21 11/23/23 (Colace) semaglutide 1 mg/dose (2 mg/1.5 1 mg subcut WEEKLY 05/07/22 11/23/23 mL) subcutaneous pen injector (Ozempic) Allergies Allergy/AdvReac Type Severity Reaction Status Date / Time clarithromycin Allergy Intermediate Itching Verified 11/23/23 13:41 Iodinated Contrast Media Allergy Intermediate Itching Verified 11/23/23 13:41 Iodine and Iodide Containing Allergy Intermediate Itching Verified 11/23/23 13:41 Produc metformin AdvReac Intermediate diarrhea Verified 11/23/23 13:41 Review of Systems Review of Systems: CONSTITUTIONAL: Denies fever, chills, or sweats. EYES: Denies visual changes, redness, or discharge. ENT: Denies rhinorrhea, congestion, sore throat, or otalgia. CARDIOVASCULAR: Denies chest pain, palpitations, or edema. RESPIRATORY: Denies cough or dyspnea. GASTROINTESTINAL: Denies abdominal pain, nausea, vomiting . Reports diarrhea. GENITOURINARY: Denies dysuria or hematuria. SKIN: Denies rash or itching. MUSCULOSKELETAL: Denies back pain, joint pain, or myalgia. reports left posterior rib pain. NEUROLOGIC: Denies headache, numbness, or weakness. PSYCHIATRIC: Denies anxiety or depression. All other systems reviewed are negative, except as documented in HPI. [facility] Past Medical History Medical History Abdominal pain, acute, epigastric Acalculous cholecystitis Aortic regurgitation s/p bioprosthetic AVR Bilateral cataracts Maturing. CAD (coronary artery disease) Depression Diabetic nephropathy Diabetic peripheral neuropathy Diverticulosis of intestine, part unspecified, without perforation or abscess with bleeding With last colonoscopy: 2014 Dysphagia Elevated troponin Heart valve disorder Hypokalemia Lumbar degenerative disc disease Mild coronary artery disease Cardiac catheterization October 2018 which demonstrated 20% stenosis a branch of the LAD otherwise had normal coronary arteries. Nonerosive esophageal reflux disease Noted on EGD from July 2019. JAMEEL (obstructive sleep apnea) Restrictive lung disease Schatzki's ring Noted on EGD performed by Dr. Hunter July 2019. Suspected sleep apnea Type 2 diabetes mellitus Hemoglobin A1c was 7.5% in February 2020. Venous insufficiency of both lower extremities Surgical History Surgical History History of aortic valve replacement History of carpal tunnel release (~2004) History of repair of right rotator cuff (~1997) Status post arthroscopy of left knee Family History Family History Father Diabetes mellitus Lung cancer Mother Alzheimer's dementia Hypertension Sibling Renal cancer Hypertension Lymphoma Social
== END 2023-11-23 15:05 | disposition home or self-care (01) ==
PROVIDERS: Emergency Provider Nurse Practitioner Family; PCP Family Medicine
DX: R19.7 Diarrhea, unspecified (principal); S20.222A Contusion of left back wall of thorax, initial encounter; W19.XXXA Unspecified fall, initial encounter; I25.10 Atherosclerotic heart disease of native coronary artery without angina pectoris; E11.21 Type 2 diabetes mellitus with diabetic nephropathy; E11.42 Type 2 diabetes mellitus with diabetic polyneuropathy; M51.36 Other intervertebral disc degeneration, lumbar region
CPT/HCPCS: 71100; 87804; 99213; G0463

== ENCOUNTER 2023-11-24 03:57 | Emergency (ER) | payer OTHER, SELFPAY ==
[2023-11-24 03:58] VITALS: BP 126/84; PULSE 89; RESP 14; TEMP 36.4; O2SAT 97
--- NOTE | 2023-11-24 04:52 | ED.GENADULT ---
HPI - General Adult General Chief complaint: Nausea/Vomiting/Diarrhea Stated complaint: diarrhea Time Seen by Provider: 11/24/23 04:35 History of Present Illness HPI narrative: This is a 73-year-old male presenting with a chief complaint of diarrhea. He has been having diarrhea for 6 days. He has been treating himself with Imodium which provides him some relief but then the diarrhea comes back. Is associated with crampy abdominal pain today. He came today because he is still having diarrhea and has become quite inconvenient for him and he has had accidents trying to get to the bathroom. He denies fevers chills chest pain difficulty breathing. No urinary symptoms. Related Data Home Medications Medication Instructions Recorded Confirmed multivitamin 1 tablet PO DAILY 06/13/21 11/23/23 aspirin 81 mg tablet,delayed 81 mg PO DAILY 08/07/21 11/23/23 release (Adult Low Dose Aspirin) loratadine 10 mg tablet 10 mg PO DAILY 09/04/21 11/23/23 docusate sodium 100 mg capsule 100 mg PO DAILY 09/26/21 11/23/23 (Colace) semaglutide 1 mg/dose (2 mg/1.5 1 mg subcut WEEKLY 05/07/22 11/23/23 mL) subcutaneous pen injector (Ozempic) Allergies Allergy/AdvReac Type Severity Reaction Status Date / Time clarithromycin Allergy Intermediate Itching Verified 11/23/23 13:41 Iodinated Contrast Media Allergy Intermediate Itching Verified 11/23/23 13:41 Iodine and Iodide Containing Allergy Intermediate Itching Verified 11/23/23 13:41 Produc metformin AdvReac Intermediate diarrhea Verified 11/23/23 13:41 [facility] Past Medical History Medical History Abdominal pain, acute, epigastric Acalculous cholecystitis Aortic regurgitation s/p bioprosthetic AVR Bilateral cataracts Maturing. CAD (coronary artery disease) Depression Diabetic nephropathy Diabetic peripheral neuropathy Diverticulosis of intestine, part unspecified, without perforation or abscess with bleeding With last colonoscopy: 2014 Dysphagia Elevated troponin Heart valve disorder Hypokalemia Lumbar degenerative disc disease Mild coronary artery disease Cardiac catheterization October 2018 which demonstrated 20% stenosis a branch of the LAD otherwise had normal coronary arteries. Nonerosive esophageal reflux disease Noted on EGD from July 2019. JAMEEL (obstructive sleep apnea) Restrictive lung disease Schatzki's ring Noted on EGD performed by Dr. Hunter July 2019. Suspected sleep apnea Type 2 diabetes mellitus Hemoglobin A1c was 7.5% in February 2020. Venous insufficiency of both lower extremities Surgical History Surgical History History of aortic valve replacement History of carpal tunnel release (~2004) History of repair of right rotator cuff (~1997) Status post arthroscopy of left knee Family History Family History Father Diabetes mellitus Lung cancer Mother Alzheimer's dementia Hypertension Sibling Renal cancer Hypertension Lymphoma Social History Social History Social History: Surrogate decision maker: Doris Miller. Code status: Full code. Smoking status: Never smoker Second hand tobacco smoke exposure: No Alcohol intake: never Substance use: never Substance use type: does not use Living arrangements: alone Additional living arrangements comments: He is single and has no children. 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 Gender identity (if verbalized by the patient): Male Spiritual care concerns: No Exam Narrative: APPEARANCE: No apparent distress. well-appearing Head: atraumatic. EYES: EOMI, NOSE: Atraumatic NECK: Trachea midline RESPIRATORY: No increased rate of breathing
[2023-11-24 05:02] LABS: Basophils Percent Auto 0.5 % (0.2-1.2); Eosinophils Absolute Auto 0.1 K/mm3 (0-0.3); Eosinophils Percent Auto 1.8 % (0-4.4); Hematocrit 49.8 % (42.0-52.0); Hemoglobin 16.2 g/dL (14.0-18.0); Immature Granulocyte Absolute 0.03 K/mm3 (0.00-0.031); Immature Granulocyte Percent A 0.4 % (0-0.5); Lymphocytes Absolute Auto 2.09 K/mm3 (0.9-3.2); Lymphocytes Percent Auto 26.4 % (18.3-44.2); Mean Corpuscular HGB Conc 32.5 g/dl (32-36); Mean Corpuscular Hemoglobin 26.1 pg (26-34); Mean Corpuscular Volume 80.3 fl (80-100); Mean Platelet Volume 10.4 fl (7.4-10.4); Monocytes Absolute Auto 0.9 K/mm3 (0.1-0.6); Monocytes Percent Auto 11.7 % (2.6-8.5); Neutrophils Absolute Auto 4.7 K/mm3 (1.3-6.7); Neutrophils Percent Auto 59.2 % (45.5-73.1); Platelet Count Result 289 k/mm3 (150-375); Red Cell Distribution Width 16.5 % (11.5-14.5); White Blood Count 7.9 K/mm3 (4.5-10.0)
[2023-11-24 05:14] LABS: Alanine Aminotransferase 32 U/L (6-50); Albumin Level 4.3 g/dL (3.5-5.1); Alkaline Phosphatase 75 U/L (38-126); Anion Gap 9 mmol/L (8-16); Aspartate Amino Transferase 36 U/L (17-59); Bilirubin,Total 0.7 mg/dL (0.2-1.3); Blood Urea Nitrogen 16 mg/dL (9-20); Calcium 9.6 mg/dL (8.4-10.2); Carbon Dioxide 31 mmol/L (22-30); Chloride 96 mmol/L (98-107); Estimated CRCL calculation 91 ml/min; Estimated Glomerular Filt Rate > 60; Glucose 142 mg/dL (65-110); Lipase 150 U/L (23-300); Potassium 2.9 mmol/L (3.4-5.0); Sodium 136 mmol/L (137-145)
[2023-11-24 05:38] LABS: Influenza A QL RT-PCR Negative (Negative); Influenza B QL RT-PCR Negative (Negative); RSV RNA, RT-PCR Negative (Negative); SARS-CoV-2 RNA PCR Negative (Negative)
== END 2023-11-24 05:11 | disposition home or self-care (01) ==
PROVIDERS: Emergency Provider Emergency Medicine; PCP Family Medicine
DX: R19.7 Diarrhea, unspecified (principal); I25.10 Atherosclerotic heart disease of native coronary artery without angina pectoris; E11.9 Type 2 diabetes mellitus without complications; Z20.822 Contact with and (suspected) exposure to COVID-19
CPT/HCPCS: 36415; 80053; 83690; 85025; 87637; 99283

== ENCOUNTER 2023-12-23 07:44 | Outpatient (CLI) | payer OTHER, SELFPAY ==
--- NOTE | ~2023-12-23 | MR_ITS ---
EXAMINATION: MR lumbar spine wo con DATE: 12/23/2023 08:09 INDICATION: Lumbar radiculopathy. Low back pain. TECHNIQUE: Magnetic resonance imaging (MRI) of the lumbar spine was performed without intravenous con trast. Sequences included sagittal T2-weighted FSE, sagittal T2-weighted FS FSE, sagittal T1-weighted FSE, and axial T2-weighted FSE. COMPARISON: Lumbar spine MRI 05/28/2018 FINDINGS: There is 3 mm anterolisthesis of L4 on L5. There is mild chronic anterior wedging of T11 an d T12 vertebral bodies. There is mildly decreased disc height at L3-L4 and severely decreased disc he ight at L5-S1. The distal spinal cord signal intensity is normal. The conus medullaris is at T12-L1. There is peripheral displacement of the cauda equina at L5 and S1, consistent with arachnoiditis. The following disc levels are specifically discussed: L1-L2: The disc does not extend beyond the endplate margin. There is moderate right and mild left fac et joint osteoarthritis. There is no neural foraminal stenosis. There is no central canal stenosis. L2-L3: The disc is bulging. There is severe bilateral facet joint osteoarthritis. There is mild bilat eral neural foraminal stenosis. There is mild central canal stenosis. L3-L4: The disc is bulging and has an annular fissure. There is severe bilateral facet joint osteoart hritis. There is moderate bilateral neural foraminal stenosis. There is moderate central canal stenos is. L4-L5: The disc does not extend beyond the endplate margin. There is severe bilateral facet joint ost eoarthritis. There is mild bilateral neural foraminal stenosis. There is no central canal stenosis. L5-S1: The disc is bulging. There is moderate right and mild left facet joint osteoarthritis. There i s moderate bilateral neural foraminal stenosis. There is mild central canal stenosis. IMPRESSION: 1. Severe lower lumbar spondylosis, mildly worsened from 05/28/2018. 2. Chronic arachnoiditis. Reviewed, dictated and finalized at location E.
== END 2023-12-23 07:45 ==
LOC: MICIMG 07:45
PROVIDERS: PCP Family Medicine; Visit Provider Nurse Practitioner Family
DX: M47.26 Other spondylosis with radiculopathy, lumbar region (principal)
CPT/HCPCS: 72148

== ENCOUNTER 2024-05-23 10:33 | Emergency (ER) | payer OTHER, SELFPAY ==
[2024-05-23 10:52] VITALS: BP 110/79; PULSE 92; RESP 16; TEMP 36.3; O2SAT 94
--- NOTE | 2024-05-23 11:06 | ED.URI ---
HPI - URI/Sore Throat General Chief Complaint: Upper Respiratory Infection Stated Complaint: Fever and Chills Time Seen by Provider: 05/23/24 11:06 Source: patient Mode of arrival: ambulatory Limitations: no limitations History of Present Illness HPI Narrative: 73-year-old male history of diabetes presented for complaint of fever up to 101-102 x3 days. Has been taking Tylenol and ibuprofen which reduces the fever temporarily. Endorses feeling sweats and body aches during the fever. Patient states he gets UTIs frequently due to 'peeing sugar,' and is currently taking Macrobid but was told urine culture was normal. Patient denies cough, abdominal pain, dysuria, n/v/d hematochezia or melena, or skin changes. Patient had Covid 04/02/24. Related Data Home Medications Medication Instructions Recorded Confirmed multivitamin 1 tablet PO DAILY 06/13/21 05/23/24 aspirin 81 mg tablet,delayed 81 mg PO DAILY 08/07/21 05/23/24 release (Adult Low Dose Aspirin) loratadine 10 mg tablet 10 mg PO DAILY 09/04/21 05/23/24 flash glucose sensor (FreeStyle 12/03/23 05/23/24 Neeta 2 Sensor kit) insulin glargine 100 unit/mL (3 20 unit subcut QAM 12/03/23 05/23/24 mL) subcutaneous pen (Lantus Solostar U-100 Insulin) tirzepatide 5 mg/0.5 mL 5 mg subcut WEEKLY 04/14/24 05/23/24 subcutaneous pen injector (Mounjaro) flash glucose sensor (FreeStyle 05/23/24 05/23/24 Neeta 2 Sensor kit) nitrofurantoin See Rx Instructions .Route .COMPLEX 05/23/24 05/23/24 monohydrate/macrocrystals 100 mg capsule Allergies Allergy/AdvReac Type Severity Reaction Status Date / Time metformin AdvReac Intermediate diarrhea Verified 05/23/24 10:51 clarithromycin AdvReac Mild Itching Verified 05/23/24 10:51 Iodinated Contrast Media AdvReac Mild Itching Verified 05/23/24 10:51 Iodine and Iodide Containing AdvReac Mild Itching Verified 05/23/24 10:51 Produc Review of Systems Review of Systems: CONSTITUTIONAL: Reports body aches, fever, chills, sweats. EYES: Denies visual changes, redness, or discharge. ENT: Denies rhinorrhea, congestion, sore throat, or otalgia. CARDIOVASCULAR: Denies chest pain, palpitations, or edema. RESPIRATORY: Denies cough or dyspnea. GASTROINTESTINAL: Denies abdominal pain, nausea, vomiting, or diarrhea. GENITOURINARY: Denies dysuria or hematuria. SKIN: Denies rash, itching, or wounds. MUSCULOSKELETAL: Denies back pain, joint pain, or myalgia. NEUROLOGIC: Denies headache, numbness, tingling, or weakness. All systems reviewed & are unremarkable except as noted in HPI and below PMFSH Past Medical History Medical History Abdominal pain, acute, epigastric Acalculous cholecystitis Aortic regurgitation s/p bioprosthetic AVR Bilateral cataracts Maturing. CAD (coronary artery disease) Depression Diabetic nephropathy Diabetic peripheral neuropathy Diverticulosis of intestine, part unspecified, without perforation or abscess with bleeding With last colonoscopy: 2014 Dysphagia Elevated troponin Heart valve disorder Hypokalemia Lumbar degenerative disc disease Mild coronary artery disease Cardiac catheterization October 2018 which demonstrated 20% stenosis a branch of the LAD otherwise had normal coronary arteries. Nonerosive esophageal reflux disease Noted on EGD from July 2019. JAMEEL (obstructive sleep apnea) Restrictive lung disease Schatzki's ring Noted on EGD performed by Dr. Hunter July 2019. Suspected sleep apnea Type 2 diabetes mellitus Hemoglobin A1c was 7.5% in February 2020. Venous insufficiency of both lower extremities Surgical History Surgical History History of aortic valve replacement History of carpal tunnel release (~2004) History of repair of right rotator cuff (~1997) Status post arthroscopy of left knee Family History Family History (Reviewed 05/23/24 @ 11:25 by Catia
[2024-05-23 11:10] LABS: EDINFLUASCREEN Negative; EDINFLUBSCREEN Negative
== END 2024-05-23 11:21 | disposition home or self-care (01) ==
PROVIDERS: Emergency Provider Nurse Practitioner Family; PCP Family Medicine
DX: R50.9 Fever, unspecified (principal); Z20.822 Contact with and (suspected) exposure to COVID-19; I25.10 Atherosclerotic heart disease of native coronary artery without angina pectoris; E11.21 Type 2 diabetes mellitus with diabetic nephropathy; E11.319 Type 2 diabetes mellitus with unspecified diabetic retinopathy without macular edema; Z79.4 Long term (current) use of insulin; M51.36 Other intervertebral disc degeneration, lumbar region; K21.9 Gastro-esophageal reflux disease without esophagitis; Z95.2 Presence of prosthetic heart valve
CPT/HCPCS: 87426; 87804; 99213; G0463

== ENCOUNTER 2024-05-25 17:05 | Outpatient (CLI) | payer OTHER, SELFPAY ==
[2024-05-25 17:21] LABS: Basophils Percent Auto 0.4 % (0.2-1.2); Eosinophils Absolute Auto 0.1 K/mm3 (0-0.3); Eosinophils Percent Auto 0.9 % (0-4.4); Hematocrit 48.7 % (42.0-52.0); Hemoglobin 16.1 g/dL (14.0-18.0); Immature Granulocyte Absolute 0.04 K/mm3 (0.00-0.031); Immature Granulocyte Percent A 0.5 % (0-0.5); Lymphocytes Absolute Auto 1.07 K/mm3 (0.9-3.2); Lymphocytes Percent Auto 14.4 % (18.3-44.2); Mean Corpuscular HGB Conc 33.1 g/dl (32-36); Mean Corpuscular Hemoglobin 26.8 pg (26-34); Mean Corpuscular Volume 81.2 fl (80-100); Mean Platelet Volume 9.6 fl (7.4-10.4); Monocytes Absolute Auto 1.2 K/mm3 (0.1-0.6); Monocytes Percent Auto 16.3 % (2.6-8.5); Neutrophils Percent Auto 67.5 % (45.5-73.1); Platelet Count Result 243 k/mm3 (150-375); Red Cell Distribution Width 14.8 % (11.5-14.5); White Blood Count 7.4 K/mm3 (4.5-10.0)
[2024-05-25 17:32] LABS: Alanine Aminotransferase 29 U/L (6-50); Albumin Level 4.3 g/dL (3.5-5.1); Alkaline Phosphatase 84 U/L (38-126); Anion Gap 11 mmol/L (4-12); Aspartate Amino Transferase 31 U/L (17-59); Bilirubin,Total 0.9 mg/dL (0.2-1.3); Blood Urea Nitrogen 27 mg/dL (9-20); Calcium 9.3 mg/dL (8.4-10.2); Carbon Dioxide 32 mmol/L (22-30); Chloride 90 mmol/L (98-107); Estimated Glomerular Filt Rate 60; Glucose 215 mg/dL (65-110); Potassium 3.6 mmol/L (3.4-5.0); Sodium 133 mmol/L (137-145)
== END 2024-05-25 17:06 | disposition home or self-care (01) ==
LOC: ANHLAB 17:06
PROVIDERS: PCP Family Medicine; Visit Provider Family Medicine
DX: R53.83 Other fatigue (principal)
CPT/HCPCS: 36415; 80053; 85025

== ENCOUNTER 2024-08-11 07:57 | Outpatient (CLI) | payer OTHER, SELFPAY ==
[2024-08-11 08:15] LABS: Basophils Absolute Auto 0.1 K/mm3 (0.0-0.1); Basophils Percent Auto 0.6 % (0.2-1.2); Eosinophils Absolute Auto 0.1 K/mm3 (0-0.3); Eosinophils Percent Auto 1.3 % (0-4.4); Hematocrit 48.8 % (42.0-52.0); Hemoglobin 15.8 g/dL (14.0-18.0); Immature Granulocyte Absolute 0.03 K/mm3 (0.00-0.031); Immature Granulocyte Percent A 0.4 % (0-0.5); Lymphocytes Absolute Auto 1.51 K/mm3 (0.9-3.2); Lymphocytes Percent Auto 17.7 % (18.3-44.2); Mean Corpuscular HGB Conc 32.4 g/dl (32-36); Mean Corpuscular Hemoglobin 25.9 pg (26-34); Mean Corpuscular Volume 79.9 fl (80-100); Mean Platelet Volume 9.4 fl (7.4-10.4); Monocytes Absolute Auto 1.1 K/mm3 (0.1-0.6); Monocytes Percent Auto 12.4 % (2.6-8.5); Neutrophils Absolute Auto 5.8 K/mm3 (1.3-6.7); Neutrophils Percent Auto 67.6 % (45.5-73.1); Platelet Count Result 231 k/mm3 (150-375); Red Blood Count 6.11 M/mm3 (4.6-6.20); Red Cell Distribution Width 15.1 % (11.5-14.5); White Blood Count 8.5 K/mm3 (4.5-10.0)
[2024-08-11 08:26] LABS: Alanine Aminotransferase 24 U/L (6-50); Albumin Level 4.2 g/dL (3.5-5.1); Alkaline Phosphatase 78 U/L (38-126); Amylase 85 U/L (30-110); Anion Gap 10 mmol/L (4-12); Aspartate Amino Transferase 26 U/L (17-59); Bilirubin,Total 0.9 mg/dL (0.2-1.3); Blood Urea Nitrogen 19 mg/dL (9-20); Calcium 9.1 mg/dL (8.4-10.2); Carbon Dioxide 29 mmol/L (22-30); Chloride 97 mmol/L (98-107); Estimated Glomerular Filt Rate > 60; Glucose 226 mg/dL (65-110); Lipase 188 U/L (23-300); Potassium 3.4 mmol/L (3.4-5.0); Sodium 136 mmol/L (137-145)
[2024-08-11 08:38] LABS: D Dimer 0.56 ug/mL (<0.48)
== END 2024-08-11 07:58 | disposition home or self-care (01) ==
LOC: ANHLAB 07:58
PROVIDERS: PCP Family Medicine; Visit Provider Physician Assistant
DX: R07.81 Pleurodynia (principal); R10.11 Right upper quadrant pain
CPT/HCPCS: 36415; 80053; 82150; 83690; 85025; 85380

== ENCOUNTER 2024-08-11 13:32 | Outpatient (CLI) | payer OTHER, SELFPAY ==
--- NOTE | ~2024-08-11 | NM_ITS ---
EXAMINATION: NM lung vent and perfusion DATE: 08/11/2024 14:50 INDICATION: Dyspnea, unspecified. TECHNIQUE: 22.6 mCi Xenon-133 was given for ventilation images. 5.5 mCi Tc-99m MAA was administered i ntravenously for perfusion images. Scintigraphic images of the chest were obtained. COMPARISON: Ventilation perfusion scintigraphy 07/28/2020, chest 2 views 08/11/2024 FINDINGS: Ventilation images demonstrate no defects. Perfusion images demonstrate no defects IMPRESSION: 1. Normal ventilation/perfusion scintigraphy. Reviewed, dictated and finalized at location A. WELL GUN PERFORATOR OPERATOR
--- NOTE | ~2024-08-11 | XR_ITS ---
HISTORY: RIGHT CP COMPARISON: None TECHNIQUE: 3 views of the right ribs were performed along with a 2 view evaluation of the chest. FINDINGS: Sternal wires and mediastinal clips are identified, the wires are midline and intact. Prosthetic valve in aortic position. The remainder of the cardiomediastinal silhouette is otherwise unremarkable. The lungs are otherwise clear. No acute displaced fracture is appreciated. The adjacent right lung is unremarkable. Bone mineralization is age-appropriate. IMPRESSION: No acute displaced fracture. The lungs are clear. Reviewed, dictated and finalized at location A. OR HELPER
== END 2024-08-11 13:33 | disposition home or self-care (01) ==
PROVIDERS: PCP Family Medicine; Visit Provider Physician Assistant
DX: R06.00 Dyspnea, unspecified (principal); R07.81 Pleurodynia; R07.9 Chest pain, unspecified; R79.89 Other specified abnormal findings of blood chemistry
CPT/HCPCS: 71046; 71100; 78582; A9540; A9558

== ENCOUNTER 2025-05-06 16:49 | Outpatient (CLI) | payer OTHER, SELFPAY ==
--- OUTSIDE RECORDS SUMMARY | 2025-05-06 16:53 | XMS_ITS | Encounter Summary ---
Author Organization [facility] Address [address] [place] [address] Care Team Providers Care Salad Chef Name Role Phone Nils Alvarenga MD Primary Care Provider [phone] Encounter Details Date Type Department Care Team (Late st Contact Info) Description 07/13/2020 Abstract [facility] at [facility], [address] [address] [place] Farmer [place] Social History Tobacco Use Types Packs/Day Years Used Date Smoking Tobacco: Never Smokeless Tobacco: Never Alcohol Use Standard Drinks/Week Comments Never 0 (1 standard drink = 0.6 oz pur e alcohol) AUDIT-C Answer Date Recorded Frequency of Alcohol Consumption Never 04/11/2020 Average Number of Drinks Not on file 020 Frequency of Binge Drinking Not on file 03/30 Sex and Gender Information Value Date Recorded Sex Assigned at Not on file Legal Sex Male 10:25 AM CDT Gender Identity Not on file Sexual Orientation Not on file COVID-19 Exposure Response Date Recorded In the last month, have you been in contact with someone who was confirmed or suspected to have Coronavirus / COVID-19? No / Unsure 06/22/2020 9:17 AM CDT documented as of this encounter Plan of Treatment Not on file documented as of this encounter Procedures Procedure Name Priority Date/Time Associated Diagnosis Comments COMPREHENSIVE METABOLIC PANEL Routine 11/21/2020 HEMOGLOBIN, GLYCOSYLATED Routine 11/21/2020 CBC (OUTSIDE LAB) Routine 03/03/2020 PROSTATE SPECIFIC ANTIGEN,TOTAL Routine 03/03/2020 COMPREHENSIVE METABOLIC PANEL Routine 03/03/2020 LIPID PANEL Routine 03/03/2020 HEMOGLOBIN, GLYCOSYLATED Routine 03/03/2020 THYROID STIM HORMONE TSH Routine 03/03/2020 documented in this encounter Results * HEMOGLOBIN, GLYCOSYLATED (11/21/2020) HGB A1C 6.6 % 11/21/2020 [facility] Final Result * (ABNORMAL) COMPREHENSIVE METABOLIC PANEL (11/21/2020) SODIUM S/P/B 139 POTASSIUM S/P/B 3.5 CO2 33 CHLORIDE S/P/B 97 GLUCOSE 220 mg/dL CALCIUM S/P/B 9.8 BUN 21 CREATININE S/P/B 0.82 0.7 - 1.3 EGFR AFR. AMER. 105(A) <=90 EGFR NON-AFR. AMER. 91(A) <=90 ALKALINE PHOSPHATASE S/P/B 51 ALT 28 AST 23 BILIRUBIN TOTAL S/P/B 0.7 ALBUMIN S/P/B 4.4 3.5 - 5.0 TOTAL PROTEIN S/P/B 6.6 GLOBULIN 2.2 11/21/2020 [facility] Edited Resul t - Final * PROSTATE SPECIFIC ANTIGEN,TOTAL (03/03/2020) PSA 0.7 03/03/2020 [facility] Final Result * CBC (OUTSIDE LAB) (03/03/2020) Pathologist [facility] WBC 5.1 HGB 15.3 HCT 46 PLT 224 03/03/2020 [facility] Abstract LAB-OUTSIDE/ABSTRACTED Final Result * THYROID STIM HORMONE, TSH (03/03/2020) [facility] TSH 1.94 03/03/2020 us Doc [facility] Final Result * HEMOGLOBIN, GLYCOSYLATED (03/03/2020) [facility] HGB A1C 6.9 % 03/03/2020 us Doc [facility] Final Result * (ABNORMAL) COMPREHENSIVE METABOLIC PANEL (03/03/2020) [facility] SODIUM S/P/B 142 POTASSIUM S/P/B 3.6 CO2 28 CHLORIDE S/P/B 102 GLUCOSE 156 mg/dL CALCIUM S/P/B 9.7 BUN 21 CREATININE S/P/B 0.79 0.7 - 1.3 EGFR AFR. AMER. 108(A) <=90 EGFR NON-AFR. AMER. 93(A) <=90 ALKALINE PHOSPHATASE S/P/B 55 ALT 12 AST 24 BILIRUBIN TOTAL S/P/B 0.6 ALBUMIN S/P/B 4.1 3.5 - 5.0 TOTAL PROTEIN S/P/B 6.6 GLOBULIN 2.5 03/03/2020 us Doc [facility]AT[facility] Final Result * LIPID PANEL (03/03/2020) [facility] CHOLESTEROL 126 HDL 33 TRIGLYCERIDES 151 NON HDL CHOLESTEROL 93 LDL (CALCULATED) 70 03/03/2020 us Doc [facility]AT[facility] Final Result documented in this encounter Visit Diagnoses Not on filedocumented in this encounter Care Teams Salad Chef Relationship Specialty Start Date End Date Nils Alvarenga MD [address] [place] [address] PCP - General FAMILY PRACTICE 03/21/20 documented as of this encounter
--- OUTSIDE RECORDS SUMMARY | 2025-05-06 16:53 | XMS_ITS | Clinical Summary ---
Author Organization [facility] Address [address] [place] [address] Care Team Providers Care Meter Maintenance Person Name Role Phone Nils Alvarenga MD Primary Care Provider [phone] Allergies Active Allergy Reactions Criticality Noted Date Comments Clarithromycin Itching 04/11/2020 Iodine Itching 04/11/2020 Ioversol Itching 04/11/2020 Medications chlorthalidone 25 MG tablet Take 25 mg by mouth daily. 06/17/2020 Active eplerenone 50 MG tablet Take 1 tablet by mouth 2 (two) times daily. 06/10/2020 Active metFORMIN ER 500 MG 24 hr tablet Take 4 tablets by mouth daily with breakfast. 09/15/2019 Active metoprolol succinate ER 50 MG 24 hr tablet Take 1 tablet by mouth daily. 09/17/2019 Active NIFEdipine ER 90 MG 24 hr tablet Take 270 mg by mouth daily. At 5 pm 04/10/2020 Active pantoprazole EC 40 MG tablet Take 1 tablet by mouth daily. 07/19/2019 Active potassium chloride CR 20 MEQ Tab CR tablet Take 1 tablet by mouth daily. 05/20/2020 Active sertraline 50 MG tablet Take 1 tablet by mouth daily. 01/23/2020 Active Multiple Vitamins-Mineral s (MULTIVITAMIN ADULT) Tab Take 1 tablet by mouth daily. Active ibuprofen 200 MG tablet Take 800 mg by mouth every 12 (twelve) hours. Active isosorbide mononitrate ER 30 MG 24 hr tablet Take 1 tablet (30 mg total) by mouth daily. 30 tablet 5 08/23/2020 Active Active Problems Problem Noted Date Diagnosed Date Aortic valve regurgitation Nonrheumatic aortic (valve) insufficiency Venous insufficiency of both lower extremities Myocardial infarction ([facility]) Hypertensive heart disease Essential hypertension JAMEEL (obstructive sleep apnea) Diabetes ([facility]) Family History Relation Status Comments Father Mother Social History Tobacco Use Types Packs/Day Years [...] on file Sexual Orientation Not on file Last Filed Vital Signs Vital Sign Reading Time Taken Comments Blood Pressure 129/62 05/17/2022 5:27 PM CDT Pulse 75 05/17/2022 5:27 PM CDT Temperature 37.1 C (98.8 F) 05/17/2022 5:27 PM CDT Respiratory Rate 18 05/17/2022 5:27 PM CDT Oxygen Saturation 97% 05/17/2022 5:27 PM CDT Inhaled Oxygen Concentration - - Weight 135.2 kg (298 lb) 05/17/2022 5:27 PM CDT Height 177.8 cm (5' 10) 05/17/2022 5:27 PM CDT Body Mass Index 42.76 05/17/2022 5:27 PM CDT Plan of Treatment Health Maintenance Due Date Last Done Comments ASCVD Statin 1950 Colorectal Cancer Screening Colonoscopy (10 Years) 1952 Kidney Health Evaluation 1950 Diabetes: Retinopathy Eye Exam 1970 Hepatitis C 1970 DTaP, Tdap and Td Vaccines (1 - Tdap) 1971 Pneumococcal Vaccine: 50+ Years (1 of 2 - PCV) 1971 RSV Immunization or 60+ Years (1 - Risk 60-74 years 1-dose series) 2012 ASCVD LDL 03/03/2021 03/03/2020 Lipid Panel 03/03/2021 03/03/2020 Hemoglobin A1C 02/08/2022 08/11/2021, 07/01, 06/28/2021, Additional history exists COVID-19 Vaccine (2023- season) 2024 Zoster Vaccines Completed 10/24/2019, 08/01, 08/10/2013 Meningococcal B Vaccine Aged Out No l onger eligible based on patient's age to complete this topic Meningococcal Vaccine Aged Out No jesus janeth eligible based on patient's age to complete this topic RSV Immunizations Under 20 Months Aged Out No longer eligible based on patient's age to complete this topic Procedures Procedure Name Priority Date/Time Associated Diagnosis Comments HEMOGLOBIN, GLYCOSYLATED Routine 11/21/2020 LIPID PANEL Routine 03/03/2020 from Last 3 Months or Most Recently Relevant to Health Maintenance Results * HEMOGLOBIN, GLYCOSYLATED (11/21/2020) HGB A1C 6.6 % 11/21/2020 [facility] Final Result * LIPID PANEL (03/03/2020) CHOLESTEROL 126 HDL 33 TRIGLYCERIDES 151 NON HDL CHOLESTEROL 93 LDL (CALCULATED) 70 03/03/2020 [facility] Final Result from Last 3 Months or Most Recently Relevant to Health Maintenance Insurance [employer] ACC[facility] [employer] [facility] Care Teams Meter Maintenance Person Relationship Specialty Start Date End Date Nils Alvarenga MD [address] [place] [address] PCP - General FAMILY PRACTICE 03/21/20
--- OUTSIDE RECORDS SUMMARY | 2025-05-06 16:53 | XMS_ITS | Clinical Summary ---
Author Organization [facility] [address] Address [address] [place] [address] Care Team Providers Care Dietary Director Name Role Phone Nils Alvarenga MD Primary Care Provider Kaushik Field MD Unavailable [phone] [place] MD, Luis Enrique Gonzalez Unavailable [phone] Miscellaneous, Not In File Unavailable Unava ilable Feroz, Is-Ivan Florentin BERRY Unavailable [phone] Allergies Active Allergy Reactions Criticality Noted Date Comments Clarithromycin Itching High 10/27/2018 Iodinated Contrast Media Itching,Other ( See comments) Low 09/29/2019 Reaction: Metformin Diarrhea Medium 03/06/2022 Medications chlorthalidon e 25 mg tabletIndicat ions:hyperten inge Take 1 tablet (25 mg total) by mouth every morning [address] (PROTONIX) 40 mg EC tabletIndicat ions:Treatmen t of Non-Bleeding Gastric Disorder Take 1 tablet (40 mg total) by mouth every morning 5 019 Active eplerenone (INSPRA) 50 mg tabletIndicat ions:hyperten inge Take 1 tablet (50 mg total) by mouth 2 (two) times a day Activ e sertraline (ZOLOFT) 50 mg tabletIndicat ions:depressi on Take 1 tablet (50 mg total) by mouth every morning Active multivitamin capsuleIndica tions:Vitamin Deficiency Prevention Take 1 capsule by mouth every morning Activ e loratadine (CLARITIN) 10 mg tabletIndicat ions:Allergic Rhinitis Take 1 tablet (10 mg total) by mouth every morning Active blood-glucose meter kit 1 kit 2 (two) times a day 1 kit Active Additional Information Patient not taking.Reported on 04/07/2025 aspirin 81 mg enteric coated tablet Take 1 tablet (81 mg total) by mouth daily 30 tablet 11 2025 Active carvediloL (COREG) 12.5 mg tablet Take 1 tablet (12.5 mg total) by mouth 2 (two) times a day with meals 60 tablet 1 2025 Active potassium chloride ER (KLOR-CON) 20 mEq CR tablet Take 2 tablets (40 mEq total) by mouth daily 30 tablet Active Additional Information Patient taking differently:40 mEq oral Daily,6 tablets daily, Reported on 04/07/2025 ImaginAb Verio test strips strip CHECK BLOOD GLUCOSE LEVEL UP TO FOUR TIMES DAILY DIRECTED Active BD Maral 2nd Gen Pen Needle 32 gauge x 5/32 needle USE DIRECTED WITH INSULIN PEN EVERY DAY Active Nystop powder APPLY TO FOLDS TWICE DAILY. Active NIFEdipine XL 30 mg 24 hr tablet TAKE 3 TABLETS BY MOUTH EVERY MORNING 023 Active furosemide (LASIX) 20 mg tablet 024 Active benzonatate (TESSALON) 100 mg capsule 024 Active Jardiance 25 mg tabletIndicat ions:Type 2 diabetes mellitus with hyperglycemia , with long-term current use of insulin ([facility]) TAKE 1 TABLET(25 MG) BY MOUTH DAILY 90 tablet 3 Active insulin glargine (LANTUS) 100 unit/mL (3 mL) pen for injection Inject 40 Units under the skin nightly 15 mL 4 Active Additional Information Patient taking differently: 45 Unitssubcutaneous Nightly, Reported on 04/07/2025 FreeStyle Neeta 3 Plus Sensor deviceIndicat ions:Type 2 diabetes mellitus with hyperglycemia , with long-term current use of insulin (HCC) Change sensor every 15 days Dx: E11.65 2 each 11 025 Active tirzepatide (Mounjaro) 15 mg/0.5 mL pen injector injectionIndi cations:type 2 diabetes mellitus Inject 0.5 mL (15 mg total) under the skin once a week 6 mL 3 025 2025 Active flash glucose sensor (FREESTYLE NEETA 2 SENSOR [facility]) 2024 Discontinued(N o longer taking - Do not display on AVS) flash glucose sensor (FreeStyle Neeta 2 Sensor) kit USE FOR BLOOD GLUCOSE MONITORING 6 kit 3 024 2024 Discontinued(N o longer taking - Do not display on AVS) FreeStyle Neeta 3 Sensor deviceIndicat ions:Type 2 diabetes mellitus with hyperglycemia , with long-term current use of insulin ([facility]) Change sensor every 2 weeks 2 each 11 025 2024 Discontinued(A lternate therapy) tirzepatide (Mounjaro) 12.5 mg/0.5 mL pen injector injectionIndi cations:type 2 diabetes mellitus Inject 0.5 mL (12.5 mg total) under the skin once a week 6 mL 3 025 2024 Discontinued Active Problems Problem Noted Date Diagnosed Date Class 3 severe obesity due t o excess calories with serious comorbidity and body mass index (BMI) of 40.0 to 44.9 in adult 11/12/2024 Assessment & Plan (11/12/2024 11:02 AM [facility]): Discussed healthy diet and importance of regular physical activity (20- 30min/day, 150min/wk). Currently taking Mounjaro. Increased from 10mg to 12.5mg weekly. Has not yet had any weight loss with mounjaro. Morbid (severe) obesity due to excess calories 0 03/06/2022 Body mass index 40.0-44.9, adult ([facility]) 03/06 H/O prosthetic aortic valve replacement 12/13/19 22 Drainage from wound 08/11/2021 Assessment & Plan (08/27/2021 12:17 PM [facility]): Placed on vancomycin on admission New cultures with few Pseudomonas, susceptible to Cipro non contrast CT performed: Reviewed by Dr. Marina/team Wound opened up at bedside Drainage to to inferior aspect, which was opened at the bedside 08/18 Now with more serous drainage from the upper wound 08/25 wound care nurse placed wound vac Will need wound vac for home care Wound nurse discussed w/ case management Continue cipro po for a total of 2 weeks (08/17-08/31) per Dr. Marina 08/26 waiting for wound vac approval Pain 08/11/2021 Assessment & Plan (08/27/2021 12:19 PM [facility]): Continue Tylenol + Oxycodone + Lidoderm Type 2 diabetes mellitus 07/26/2021 Assessment & Plan (04/07/2025 3:28 PM CDT): Chronic problem. Controlled. A1c improved from 6.8% 11/12/24 to now 6.6% wo hypoglycemia. Increase protein intake (60-90 grams/day minimum), increase water intake (minimum 60-80 oz). -will increase Mounjaro from 12.5mg to 15mg weekly (this is the highest dose). -increase activity as you can. Minimum 20-30 minutes/day. Current medications: Jardiance 25mg daily Mounjaro 12.5 mg weekly Lantus 45 units at bedtime UTD on labs UTD on DM eye exam (12/07/24 no [facility]). Strive for regular exercise (30min most days) and diet (get at least 4-5 servings of fruit and veggies daily, avoid processed foods, increase lean protein intake and decrease carb portions as well as fruit juices, regular soda & desserts). Watch carbs and simple sugars. Check the blood sugar twice daily. Check blood sugars: FSL 3+ sent in Check the feet daily for skin breakdown and infection. Assessment & Plan (11/12/2024 11:05 AM [facility]): Chronic problem. Controlled. A1c improved from 7.1% 07/03/24 to now 6.8% wo hypoglycemia. Increased Mounjaro from 10 to 12.5mg. To pay attention to morning fasting blood sugars. May need to decrease lantus 2 units weekly. Current medications: Jardiance 25mg daily Mounjaro 12.5 mg weekly Lantus 40 units at bedtime. UTD on labs UTD on DM eye exam (12/04/23 no DMR). Will set up appt 11/2024. Will send letter at end of 11/2024 for report. Strive for regular exercise (30min most days) and diet (get at least 4-5 servings of fruit and veggies daily, avoid processed foods, increase lean protein intake and decrease carb portions as well as fruit juices, regular soda & desserts). Watch carbs and simple sugars. Check the blood sugar twice daily. Check blood sugars: FSL Check the feet daily for skin breakdown and infection. Assessment & Plan (07/03/2024 11:28 AM CDT): Chronic problem. Controlled. A1c stable at 7.1%. FSL readings persistently upper limits normal & does not correlate with A1c today. Will increase Lantus to 25 units nightly. Watch your sugars over the next 1-2 weeks. If your blood sugar remains high--increase Lantus by 2 units weekly until blood sugars 140-160 fasting in the mornings. Max dose up to 50 units. Current medications: Jardiance 25mg daily Mounjaro 10 mg weekly Lantus 25 units at bedtime. UTD on labs UTD on DM eye exam (12/04/23 no DMR). Strive for regular exercise (30min most days) and diet (get at least 4-5 servings of fruit and veggies daily, avoid processed foods, increase lean protein intake and decrease carb portions as well as fruit juices, regular soda & desserts). Watch carbs and simple sugars. Check the blood sugar twice daily. Check the feet daily for skin breakdown and infection. Assessment & Plan (04/09/2023 12:23 PM CDT): Chronic problem. Controlled. A1c stable; 6.9%. No changes at this time. Current medications: Jardiance 25mg daily Ozempic 2mg weekly Basaglar 20 units at bedtime. UTD on labs UTD on DM eye exam. Strive for regular exercise (30min most days) and diet (get at least 4-5 servings of fruit and veggies daily, avoid processed foods, increase lean protein intake and decrease carb portions as well as fruit juices, regular soda & desserts). Watch carbs and simple sugars. Check the blood sugar twice daily. Check the feet daily for skin breakdown and infection. Assessment & Plan (07/30/2021 10:00 AM CDT): Endocrine consulted Sent schwartz check on Victoza and Jardiance both $20 @ DC Diabetic Education Monitor POC and adjust insulin as needed for glycemic control Discharge recommendations: - Both Victoza and Jardiance $20 copay - Start 0.6 mg Victoza at discharge; recommend starting Jardiance as outpatient - Stop Januvia Assessment & Plan (07/28/2021 3:58 PM CDT): Endocrine consulted Sent schwartz check on Victoza and Jardiance both $20 @ DC Diabetic Education Monitor POC and adjust insulin as needed for glycemic control Discharge recommendations: - Both Victoza and Jardiance $20 copay - Start 0.6 mg Victoza at discharge; recommend starting Jardiance as outpatient - Stop Januvia Assessment & Plan (07/27/2021 9:37 AM CDT): Endocrine consulted Sent schwartz check on Victoza and Jardiance both $20 @ DC Diabetic Education Monitor POC and adjust insulin as needed for glycemic control Discharge recommendations: - Both Victoza and Jardiance $20 copay - Start 0.6 mg Victoza at discharge; recommend starting Jardiance as outpatient - Stop Januvia Assessment & Plan (07/26/2021 12:13 PM CDT): Endocrine consulted Sent schwartz check on Victoza and Jardiance both $20 @ DC Diabetic Education Monitor POC and adjust insulin as needed for glycemic control Aortic valve insufficiency 09/02/2020 Assessment & Plan (08/27/2021 12:17 PM [facility]): S/p bio AVR 07/24/2021 On ASA, Coreg, Nifedipine Echo 11/16: S/p 27 mm Inspiris bioAVR 07/24/21. Technically difficult study due to extremely limited image resolution. Epicardial fat. Concentric LV remodeling w/ normal LV cavity size. Moderate global hypokinesis, LVEF 40%. Grade 1 LV diastolic dysfunction. RV size appears normal; systolic function not well seen. Normal LA and RA sizes. Bioprosthetic AVR w/ mean gradient 9 mm Hg. No AI. AV leaflets not well visualized. No MV vegetation. Recommend EMA if high clinical suspicion of IE. Trace TR. Mild IN. 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 Est. PASP 15 mm hg + RAP. Inadequate image quality for accurate longitudinal strain analysis. No prior study available for comparison. Continue Eplerenone, Lasix Assessment & Plan (07/31/2021 9:23 AM CDT): S/P bioAVR -continue ASA - Coreg -continue Aldactone -CTs and wires are out -PT/OT -Aggressive pulmonary toilet -nausea resolved with BM over weekend -discharge planning, will have niece to help him at home, not sure if he feels ready to dc today Assessment & Plan (07/28/2021 3:57 PM CDT): S/P bioAVR -continue aspirin -increase coreg -decrease lasix to daily -continue aldactone -CTs and wires are out -PT/OT -Aggressive pulmonary toilet -KUB for nausea + decrease oxycodone to 5mg q 4h -discharge planning Assessment & Plan (07/27/2021 9:38 AM CDT): S/P AVR-continue aspirin, BB dosing Increase lasix to BID, add aldactone CTs out Plan to DC wires today Wean O2 PT/OT Aggressive pulmonary toilet Assessment & Plan (07/26/2021 12:10 PM CDT): S/P AVR-continue aspirin, BB dosing Increase lasix to BID DC remaining CTs Cap wires Wean O2 PT/OT Aggressive pulmonary toilet Hypertension associated with diabetes 09/29/2019 Assessment & Plan (04/07/2025 3:08 PM CDT): Chronic problem. Controlled on current carvedilol 12.5mg bid, nifedipine XL 90mg daily, lasix 20mg daily, chlorthalidone 25mg daily Assessment & Plan (11/12/2024 10:46 AM [facility]): Chronic problem. Controlled on current carvedilol 12.5mg bid, nifedipine XL 90mg daily, lasix 20mg daily, chlorthalidone 25mg daily Assessment & Plan (07/03/2024 11:01 AM CDT): Chronic problem. Controlled on current carvedilol 12.5mg bid, nifedipine XL 90mg daily, lasix 20mg daily, chlorthalidone 25mg daily Assessment & Plan (03/03/2024 12:11 PM CDT): Chronic, stable Update microalbumin and GFR Continue current regimen including chlorthalidone Assessment & Plan (04/09/2023 11:50 AM CDT): Chronic problem. Controlled on current Carvedilol 12.5mg bid, nifedipine XL 90mg daily, furosemide 40mg daily & chlorthalidone 25mg daily. No changes Assessment & Plan (12/11/2022 12:55 PM CDT): Chronic, well controlled Importance of low salt diet and exercise were discussed Continue current meds, including carvedilol Update GFR , MA Assessment & Plan (08/27/2021 12:16 PM [facility]): VS q 4h Continue Coreg, Nifedipine , chlorthalidone Assessment & Plan (07/31/2021 9:21 AM CDT): VS q 4 h Continue Coreg bid Increase nifedipine to 90mg daily Assessment & Plan (07/28/2021 3:56 PM CDT): Monitor Q4 hour vitals Continue BB dosing and titrate as needed Assessment & Plan (07/27/2021 9:38 AM CDT): Monitor Q4 hour vitals Continue BB dosing and titrate as needed Assessment & Plan (07/26/2021 12:11 PM CDT): Monitor Q4 hour vitals Continue BB dosing and titrate as needed Morbid obesity with BMI of 50.0-59.9, adult 09/01 Resolved Problems Problem Noted Date Diagnosed Date Resolved Date Diabetes 08/11/2021 07/03/2024 Assessment & Plan (03/03/2024 12:11 PM CDT): Chronic, with higher A1c Importance of diet and exercise was discussed Will try to switch to Mounjaro which might have a better effect on A1c and suppressing appetite. The patient wishes to do this Continue Jardiance If recurrent, persistent UTI, might consider to discontinue Continue metformin Assessment & Plan (08/06/2023 4:13 PM [facility]): Hba1c was Lab Results Component Value Date HGBA1C 6.9 08/06/2023 today, indicating adequate DM control Goal Hba1c and blood glucose explained Diet and exercise were advised Prevention and treatment of hyypoglcyemia were discussed with the patient Blood glucose monitoring : 2 x day Adjustment to medications: Continue current regimen with Basaglar, Jardiance and metformin Assessment & Plan (12/11/2022 12:50 PM CDT): Hba1c was Lab Results Component Value Date HGBA1C 6.9 12/11/2022 today, indicating adequate DM control Goal Hba1c and blood glucose explained Diet and exercise were advised Prevention and treatment of hyypoglcyemia were discussed with the patient Blood glucose monitoring : rx for FSL2 sent Adjustment to medications: Basaglar 20 units hs. Ozempic, 2.0 mg weekly Jardiance 25 mg Assessment & Plan (07/03/2022 2:15 PM CDT): Hba1c was Lab Results Component Value Date HGBA1C 6.8 07/03/2022 today, indicating adequate DM control Goal Hba1c and blood glucose explained Diet and exercise were advised Prevention and treatment of hyypoglcyemia were discussed with the patient Blood glucose monitoring : 2 x day Adjustment to medications: Increase Ozempic to 2 mg weekly ( The pen that you have now, you can take 1 mg until you use it up , and then continue with the 2 mg ) Stay on Lantus 15 units and Jardiance. Assessment & Plan (03/06/2022 4:25 PM CDT): Hba1c was Lab Results Component Value Date HGBA1C 6.5 03/06/2022 today, indicating adequate DM control Goal Hba1c and blood glucose explained Diet and exercise were advised Prevention and treatment of hyypoglcyemia were discussed with the patient Blood glucose monitoring : Once a day, alternating 1 day in the morning and 1 day in the evening Adjustment to medications: Stay on Jardiance and Basaglar . Stop the Victoza when you finish the pen you are using now . Start Ozempic, 0.25 mg weekly for 4 weeks, then increase and continue with 0.5 mg weekly. If you have severe nausea, vomiting , abdominal pain and/or diarrhea, stop the medication and call the office. Send me a message via [employer] in 6 weeks to see how you are doing with the Ozempic, so I can send the prescription Assessment & Plan (08/28/2021 1:55 PM [facility]): Endocrine consulted Continue Lantus and mealtime Lispro bolus and SSI POC BGM Carbohydrate consistent diet 08/25 continue lantus 20 units every am Schwartz check with mobile pharmacy Pt insurance will cover basaglar or levemir for $ 20 /month Endocrine Discharge Medication Recommendations: Basaglar daily in the AM, 20 units Victoza 0.6 mg daily X 10 days, if he tolerates this dose OK, titrate up to 1.2 mg daily Jardiance 25 mg daily Encounters Date Type Department Care Team Description 04/21/2025 Results Follow-Up [facility] [id number] [place] [phone] Renetta Marcano, [place]UG[place] Lipid panel, Comprehensive metabolic panel, Albumin Creatinine Ratio, Urine 04/07/2025 3:00 PM CDT Office Visit [facility] [address] [place] [phone] Renetta Marcano, AUGIE Type 2 diabetes mellitus with hyperglycemia, with long-term current use of insulin (HCC) (Primary Dx); Hypertension associated with diabetes (HCC) 04/07/2025 Telephone [facility] [address] [place] [phone] Renetta Marcano NP Lab orders from Last 3 Months Immunizations Immunization Administration Dates Next Due Influenza, Split 07/01/2013 Influenza, Trivalent, IM (MDV) 08/28/2015 Influenza, Trivalent, Preservative Free, Intramu scular 07/25/2017 Influenza, Unspecified 06/30/2021 ZOSTER LIVE 08/10/2013 ZOSTER Recombinant 10/24/2019,08/22/2019 Surgical History Surgery Date Site/Laterality Comments CARDIAC CATHETERIZATION 10/31/2018 - 11/27/2018 at [facility] CARPAL TUNNEL RELEASE Bilateral Medical History Medical History Date Comments Hypertension Diabetes mellitus (HCC) Acid indigestion Sleep apnea Delayed emergence from general anesthesia Type 2 diabetes mellitus Family History Medical History Relation Name Comments Diabetes Father Lung cancer Father Dementia Mother Hypertension Mother Cancer Sister Diabetes Sister Hypertension Sister Relation Name Status Comments Brother Alive Father (Age 66) lung cance r Mother (Age 85) Sister (Age 68) Social History Tobacco Use Types Packs/Day Years Used Date Smoking Tobacco: Never Smokeless Tobacco: Never Alcohol Use Standard Drinks/Week Comments Never 0 (1 standard drink = 0.6 oz pur e alcohol) AUDIT-C Answer Date Recorded Q1: How often do you have a drink containing alc ohol? Never 07/21/2021 Average Number of Drinks Not on file 021 Frequency of Binge Drinking Not on file 07/01 PHQ-2 Answer Date Recorded PHQ-2 Total Score (If total score is 3 or more points, staff should administer the PHQ-9) 0 03/03/2024 Sex and Gender Information Value Date Recorded Sex Assigned at Not on file Legal Sex Male 8:54 AM [facility] Gender Identity Not on file Sexual Orientation Not on file Obstetrics History Last Filed Vital Signs Vital Sign Reading Time Taken Comments Blood Pressure 110/80 04/07/2025 2:45 PM CDT Pulse 75 04/07/2025 2:45 PM CDT Temperature 36.9 C (98.4 F) 10/13/2021 3:01 PM [facility] Respiratory Rate 18 04/07/2025 2:45 PM CDT Oxygen Saturation 93% 12/22/2024 11:12 AM CDT Inhaled Oxygen Concentration - - Weight 139.3 kg (307 lb) 04/07/2025 2:45 PM CDT Height 180.3 cm (5' 10.98) 04/07/2025 2:45 PM C DT Body Mass Index 42.84 04/07/2025 2:45 PM CDT Plan of Treatment Health Maintenance Due Date Last Done Comments Colon Cancer Screening-Colonoscopy 1950 Hepatitis C Screening 1950 DTaP/Tdap/Td Vaccine (1 - Tdap) 1963 Hepatitis B Screening 1970 Pneumococcal vaccine 65+ (1 of 2 - PCV) 1971 Well Visit 65+ 2017 Covid-19 Vaccine (3 - 2023-2 5 season) 2024 12/05/2020, 11/07/2020 Depression Screening 03/03/2025 03/03/2024, 07/03/2022, 03/06/2022 Fall Risk Assessment 03/03/2025 03/03/2024, 08/29/20 21 Influenza Vaccine (#1) 2025 , 07/25/2017, 08/28/2015, Additional history exists Hemoglobin A1C 10/08/2025 04/07/2025, 10/31, 07/03/2024, Additional history exists Foot Exam 11/12/2025 11/12/2024, 03/2023, 03/06/2022 Albumin Creatinine Ratio, Urine 04/20/2026 04/20/2025, 03/03/2024, 12/11/2022, Additional history exists Lipid Panel 04/20/2026 04/20/2025, 0612/2023, 12/19/2023, Additional history exists eGFR 04/20/2026 04/20/2025, 11/2023, 03/03/2024, Additional history exists Dilated Eye Exam 12/07/2026 12/07/2024, 02/2024, 11/15/2022, Additional history exists Zoster Vaccine Completed 10/24/2019, 08/01, 08/10/2013 Medical Devices Implanted Type Area Pillow Cleaner Device Identifier Shelf Expiration Date Model / Serial / Lot [employer] [id number] Inspiris Resilia Leaflet Sewing Ring 27mm Valve Aortic Bovine - [id number] - [id number] Implanted:Qty: 1 on 07/24/2021 by Luis Enrique Marina Jr., [facility] at [facility] Other - see comments N/A: Aortic Valve [employer] 02/01/2025 [id number] / [id number] / Description:Aortic Valve Procedures Procedure Name Priority Date/Time Associated Diagnosis Comments ALBUMIN CREATININE RATIO, URINE Routine 04/20/2025 9:47 AM CDT Type 2 diabetes mellitus with hyperglycemia, with long-term current use of insulin (HCC) COMPREHENSIVE METABOLIC PANEL Routine 04/20/2025 9:47 AM CDT Type 2 diabetes mellitus with hyperglycemia, with long-term current use of insulin (HCC) Hypertension associated with diabetes (HCC) LIPID PANEL Routine 04/20/2025 9:47 AM CDT Type 2 diabetes mellitus with hyperglycemia, with long-term current use of insulin (HCC) POCT GLUCOSE Routine 04/07/2025 2:50 PM CDT Type 2 diabetes mellitus with hyperglycemia, with long-term current use of insulin ([facility]) POCT HEMOGLOBIN A1C Routine 04/07/2025 2 :50 PM CDT Type 2 diabetes mellitus with hyperglycemia, with long-term current use of insulin ([facility]) DIABETES EYE EXAM Routine 12/07/2024 2:56 PM CDT from Last 3 Months or Most Recently Relevant to Health Maintenance Results * (ABNORMAL) Albumin Creatinine Ratio, Urine (04/20/2025 9:47 AM CDT) Creatinine, ur 103 20 - 320 mg/dL [facility] Microalbumin, ur 5.8 See Note: mg/dL [facility] Comment: Reference Range: Reference Range Not established Microalbumin/creat ratio 56(H) <30 mg/g creat [facility] Comment: The ADA defines abnormalities in albumin excretion as follows: Albuminuria Category Result (mg/g creatinine) Normal to Mildly increased <30 Moderately increased 30-299 Severely increased > OR = 300 The ADA recommends that at least two of three specimens collected within a 3-6 month period be abnormal before considering a patient to be within a diagnostic category. Urine 04/20/2025 9:47 AM CDT 04/20/2025 9:48 AM CDT Narrative [facility] - 04/21/2025 6:45 AM CDT FASTING:YES FASTING: YES us Renetta Marcano NP LAB URINE ORDERABLES Katharine l Result [facility] [id number] [phone] * (ABNORMAL) Lipid panel (04/20/2025 9:47 AM CDT) Pathologist [facility] Cholesterol 142 <200 mg/dL [facility] HDL 36(L) > OR = 40 mg/dL [facility] Triglycerides 249(H) <150 mg/dL [facility] Comment: If a non-fasting specimen was collected, consider repeat triglyceride testing on a fasting specimen if clinically indicated. Montrell et al. J. of Clin. Lipidol. 2015;9:129-169. LDL 73 mg/dL (calc) [facility] Comment: Reference range: <100 Desirable range <100 mg/dL for primary prevention; <70 mg/dL for patients with CHD or diabetic patients with > or = 2 CHD risk factors. LDL-C is now calculated using the Savage-Trimble calculation, which is a validated novel method providing better accuracy than the Friedewald equation in the estimation of LDL-C. Savage SS et al. JORGE. 2013;310(19): 7024-6510 (http://education.Dropcam/faq/JRQ932) Chol/HDL ratio 3.9 <5.0 (calc) [facility] Non-HDL, (LDL+VLDL) 106 <130 mg/dL (calc) [facility] Comment: For patients with diabetes plus 1 major ASCVD risk factor, treating to a non-HDL-C goal of <100 mg/dL (LDL-C of <70 mg/dL) is considered a therapeutic option. Blood 04/20/2025 9:47 AM CDT 04/20/2025 9:48 AM CDT Narrative [facility] - 04/21/2025 6:45 AM CDT FASTING:YES FASTING: YES us Renetta Marcano NP LAB BLOOD ORDERABLES Katharine l Result [facility] [address] [facility] [place] [address] * (ABNORMAL) Comprehensive metabolic panel (04/20/2025 9:47 AM CDT) Glucose 172(H) 65 - 99 mg/dL [facility] Comment: Fasting reference interval For someone without known diabetes, a glucose value >125 mg/dL indicates that they may have diabetes and this should be confirmed with a follow-up test. BUN 15 7 - 25 mg/dL [facility] Creatinine 1.00 0.70 - 1.28 mg/dL [facility] eGFR 80 > OR = 60 mL/min/1.7 3m2 [facility] BUN/creat ratio SEE NOTE: (calc) [facility] Comment: Not Reported: BUN and Creatinine are within reference range. Sodium 139 135 - 146 mmol/L [facility] Potassium, pl 3.8 3.5 - 5.3 mmol/L [facility] Chloride 100 98 - 110 mmol/L [facility] CO2 29 20 - 32 mmol/L [facility] Calcium 9.8 8.6 - 10.3 mg/dL [facility] Protein, sr 6.9 6.1 - 8.1 g/dL [facility] Albumin 4.5 3.6 - 5.1 g/dL [facility] GLOBULIN 2.4 1.9 - 3.7 g/dL (calc) [facility] Alb/glob ratio 1.9 1.0 - 2.5 (calc) [facility] Bilirubin, total 0.7 0.2 - 1.2 mg/dL [facility] Alk phos 66 35 - 144 U/L [facility] AST 17 10 - 35 U/L [facility] ALT (SGPT) 21 9 - 46 U/L [facility] Blood 04/20/2025 9:47 AM CDT 04/20/2025 9:48 AM CDT Narrative [facility] - 04/21/2025 6:45 AM CDT FASTING:YES FASTING: YES us Renetta Marcano NP LAB BLOOD ORDERABLES Katharine l Result [facility] [address] [place] [address] * (ABNORMAL) POCT hemoglobin A1c (04/07/2025 2:50 PM CDT) Hemoglobin A1C, POC 6.6(A) 4.0 - 5.6 % Blood 04/07/2025 2:50 PM CDT Renetta Marcano NP POINT OF CARE TEST ORDERA BLES Final Result * (ABNORMAL) POCT glucose (04/07/2025 2:50 PM CDT) Glucose Blood, POC 161 Normal Fasting 70 - 100, Random <200 mg/dL Blood 04/07/2025 2:50 PM CDT us Renetta Marcano NP POINT OF CARE TEST ORDERA BLES Final Result * DIABETES EYE EXAM (12/07/2024 2:56 PM CDT) us Historical Provider MD HEALTH MAINTENANCE Final Result from Last 3 Months or Most Recently Relevant to Health Maintenance Insurance [facility] [id number] [facility] [id number] [facility] [address] [place] [address] [facility] [id number] Advance Directives For more information, please contact: [phone] Documents on File Type Date Recorded Patient Jawbone Puller Expl anation ADVANCE DIRECTIVE 07/24/2021 7:02 AM Marisela r of Public Health Engineer-Medical * Full Code (Latest Code Status on File) Date Activated Date Inactivated Comments 08/11/2021 4:58 PM 08/29/2021 7:05 PM * Full Code Date Activated Date Inactivated Comments 07/24/2021 1:22 PM 08/01/2021 3:25 PM * Full Code Date Activated Date Inactivated Comments 07/24/2021 1:15 PM 07/24/2021 1:22 PM Care Teams Dietary Director Relationship Specialty Start Date End Date Nils Alvarenga MD [address] [facility] [address] [place] [address] PCP - General Family Medicine 07/07/19 Kaushik Field MD [address] [address] Consulting Physician Cardiology 07/24/21 Luis Enrique Marina Jr., MD [address] [address] Surgeon Cardiothoracic Surgery 08/01/21 Miscellaneous, Not In File 08/29/21 Domonique Redman MD Fellow Endocrinology Diabetes & Metabolism 08/29/21
[2025-05-06 17:41] LABS: Add Urine Microscopic? YES; Appearance Urine Clear (Clear); Glucose Urine UA 3+ mg/dL (Negative); Leukocyte Esterase Ur Negative LEU/UL (Negative); Nitrate Urine Negative (Negative); Non Pathogenic Casts 0-2; Specific Grav Ur 1.020 (1.001-1.035)
[2025-05-06 17:49] LABS: Influenza A QL RT-PCR Negative (Negative); Influenza B QL RT-PCR Negative (Negative); SARS-CoV-2 RNA PCR Negative (Negative)
== END 2025-05-06 16:50 | disposition home or self-care (01) ==
LOC: ANHLAB 16:52
PROVIDERS: PCP Family Medicine; Visit Provider Physician Assistant
DX: R50.9 Fever, unspecified (principal); R35.0 Frequency of micturition; N39.0 Urinary tract infection, site not specified
CPT/HCPCS: 81001; 87086; 87636

== ENCOUNTER 2025-05-11 12:35 | Outpatient (CLI) | payer OTHER, SELFPAY ==
--- NOTE | ~2025-05-11 | XR_ITS ---
EXAMINATION: XR chest 2V 05/11/2025 13:01 INDICATION: Fever PROCEDURE: 2 view chest COMPARISON: 04/19/2021 FINDINGS: The lungs are clear. The cardiomediastinal silhouette is within normal limits. There are no pleural effusions. There is no pneumothorax suspected. There is a prosthetic heart valve. IMPRESSION: 1: NO ACUTE CARDIOPULMONARY DISEASE. Reviewed, dictated and finalized at location A.
--- OUTSIDE RECORDS SUMMARY | 2025-05-11 12:51 | XMS_ITS | Encounter Summary ---
Author Organization [facility] Address [address] [place] [address] Care Team Providers Care Counseling Specialist Name Role Phone Nils Alvarenga MD Primary Care Provider [phone] Encounter Details Date Type Department Care Team (Late st Contact Info) Description 07/13/2020 Abstract [facility] at [facility], [address] [address] Van Farmer MA Social History Tobacco Use [...] Result * CBC (OUTSIDE LAB) (03/03/2020) Pathologist [facility] WBC 5.1 HGB 15.3 HCT 46 PLT 224 03/03/2020 us Doc [facility] Abstract LAB-OUTSIDE/ABSTRACTED Final Result * THYROID STIM HORMONE, TSH (03/03/2020) [facility] TSH 1.94 03/03/2020 us Doc [facility] Abstract LABORATORY Final Result * HEMOGLOBIN, GLYCOSYLATED (03/03/2020) [facility] HGB A1C 6.9 % 03/03/2020 us Doc [facility] Abstract LABORATORY Final Result * (ABNORMAL) COMPREHENSIVE METABOLIC PANEL (03/03/2020) [facility] SODIUM S/P/B 142 POTASSIUM S/P/B 3.6 CO2 [...] LABORATORY Final Result * LIPID PANEL (03/03/2020) [facility] CHOLESTEROL 126 HDL 33 TRIGLYCERIDES 151 NON HDL CHOLESTEROL 93 LDL (CALCULATED) 70 03/03/2020 us Doc [facility] Abstract LABORATORY Final Result documented in this encounter Visit Diagnoses Not on filedocumented in this encounter Care Teams Counseling Specialist Relationship Specialty Start Date End Date Nils Alvarenga MD [address] [place] [address] PCP - General FAMILY PRACTICE 03/21/20 documented as of this encounter
--- OUTSIDE RECORDS SUMMARY | 2025-05-11 12:51 | XMS_ITS | Clinical Summary ---
Author Organization [facility] [address] Address [address] [place] [address] Care Team Providers Care Body Designer Name Role Phone Nils Alvarenga MD Primary Care Provider Kaushik Field MD Unavailable [phone] [place] MD, Luis Enrique Gonzalez Unavailable [phone] Miscellaneous, Not In File Unavailable Unava ilable Feroz, Is-Ivan Florentin BERRY Unavailable [phone] Allergies Active Allergy Reactions Criticality Noted Date [...] by mouth 2 (two) times a day Active sertraline (ZOLOFT) 50 mg tabletIndicat ions:depressi on Take 1 tablet (50 mg total) by mouth every morning 020 Active multivitamin capsuleIndica tions:Vitamin Deficiency Prevention Take [...] oral Daily,6 tablets daily, Reported on 04/07/2025 [employer] Verio test strips strip CHECK BLOOD GLUCOSE LEVEL UP TO FOUR TIMES DAILY DIRECTED Active BD Maral 2nd Gen Pen Needle 32 gauge x 5/32 needle USE DIRECTED WITH INSULIN PEN EVERY DAY 022 Active Nystop powder APPLY TO FOLDS TWICE DAILY. 023 Active NIFEdipine XL 30 mg 24 hr tablet TAKE 3 TABLETS BY MOUTH EVERY MORNING 023 Active furosemide (LASIX) 20 mg tablet 024 Active benzonatate (TESSALON) 100 mg capsule 024 Active Jardiance 25 mg tabletIndicat ions:Type 2 diabetes mellitus with hyperglycemia , with long-term current use of insulin ([facility]) TAKE 1 TABLET(25 MG) BY MOUTH DAILY 90 tablet 3 025 Active insulin glargine (LANTUS) 100 unit/mL (3 mL) pen for injection Inject 40 Units under the skin nightly 15 mL 4 025 Active Additional Information Patient taking differently: 45 Unitssubcutaneous Nightly, Reported on 04/07/2025 FreeStyle Neeta 3 Plus Sensor deviceIndicat ions:Type 2 diabetes mellitus with hyperglycemia , with long-term current use of insulin (HCC) Change sensor every 15 days Dx: E11.65 2 each 11 025 Active tirzepatide (Mounjaro) 12.5 mg/0.5 mL pen injector injectionIndi cations:type 2 diabetes mellitus Inject 0.5 mL (12.5 mg total) under the skin once a week 6 mL 3 025 2025 Active tirzepatide (Mounjaro) 15 mg/0.5 mL pen [...] 11/12/2024 Assessment & Plan (11/12/2024 11:02 AM PRODUCT MANAGER E COMMERCE): Discussed healthy diet and importance of regular physical activity (20- 30min/day, 150min/wk). Currently taking Mounjaro. Increased from 10mg to 12.5mg weekly. Has not yet had any weight loss with mounjaro. Morbid (severe) obesity due to excess calories 0 03/06/2022 Body mass index 40.0-44.9, adult ([facility]) 03/06 H/O prosthetic aortic valve replacement 12/13/19 22 Drainage from wound 08/11/2021 Assessment & Plan (08/27/2021 12:17 PM PRODUCT MANAGER E COMMERCE): Placed on vancomycin on admission New cultures [...] 08/11/2021 Assessment & Plan (08/27/2021 12:19 PM PRODUCT MANAGER E COMMERCE): Continue Tylenol + Oxycodone + Lidoderm Type [...] UTD on DM eye exam (12/07/24 no DMR [facility]). Strive for regular exercise (30min [...] infection. Assessment & Plan (11/12/2024 11:05 AM PRODUCT MANAGER E COMMERCE): Chronic problem. Controlled. A1c improved from 7.1% [...] 09/02/2020 Assessment & Plan (08/27/2021 12:17 PM PRODUCT MANAGER E COMMERCE): S/p bio AVR 07/24/2021 On ASA, Coreg, Nifedipine Echo 08/15: S/p 27 mm Inspiris bioAVR 07/24/21. Technically [...] clinical suspicion of IE. Trace TR. Mild SD. 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 [...] daily Assessment & Plan (11/12/2024 10:46 AM PRODUCT MANAGER E COMMERCE): Chronic problem. Controlled on current carvedilol 12.5mg [...] MA Assessment & Plan (08/27/2021 12:16 PM PRODUCT MANAGER E COMMERCE): VS q 4h Continue Coreg, Nifedipine , [...] metformin Assessment & Plan (08/06/2023 4:13 PM PRODUCT MANAGER E COMMERCE): Hba1c was Lab Results Component Value Date [...] the office. Send me a message via [employer] in 6 weeks to see how you are doing with the Ozempic, so I can send the prescription Assessment & Plan (08/28/2021 1:55 PM PRODUCT MANAGER E COMMERCE): Endocrine consulted Continue Lantus and mealtime Lispro [...] Encounters Date Type Department Care Team Description 05/07/2025 Telephone [facility] [address] [address] Renetta Marcano NP Mounjaro 04/21/2025 Results Follow-Up [facility] [address] [address] Renetta Marcano, [place]UG[place] Lipid panel, Comprehensive metabolic panel, Albumin Creatinine Ratio, Urine 04/07/2025 3:00 PM CDT Office Visit [facility] Diabetes and Endocrinology [address] [place] [phone] Renetta Marcano, AUGIE Type 2 diabetes mellitus with hyperglycemia, with long-term current use of insulin (HCC) (Primary Dx); Hypertension associated with diabetes (HCC) 04/07/2025 Telephone [facility] Diabetes and Endocrinology [address] [place] [phone] Renetta Marcano NP Lab orders from Last 3 Months Immunizations Immunization Administration Dates Next Due Influenza, Split 07/01/2013 Influenza, Trivalent, IM (MDV) 08/28/2015 Influenza, Trivalent, Preservative Free, Intramu scular 07/25/2017 Influenza, Unspecified 06/30/2021 ZOSTER LIVE 08/10/2013 ZOSTER Recombinant 10/24/2019,08/22/2019 Surgical History Surgery Date Site/Laterality Comments CARDIAC CATHETERIZATION 10/31/2018 - 11/27/[address] [facility] CARPAL TUNNEL RELEASE Bilateral Medical History Medical [...] on file Legal Sex Male 8:54 AM PRODUCT MANAGER E COMMERCE Gender Identity Not on file Sexual Orientation Not on file Obstetrics History Last Filed Vital Signs Vital Sign Reading Time Taken Comments Blood Pressure 110/80 04/07/2025 2:45 PM CDT Pulse 75 04/07/2025 2:45 PM CDT Temperature 36.9 C (98.4 F) 10/13/2021 3:01 PM PRODUCT MANAGER E COMMERCE Respiratory Rate 18 04/07/2025 2:45 PM CDT [...] Additional history exists Foot Exam 11/12/2025 11/12/2024, 1103/2023, 03/06/2022 Albumin Creatinine Ratio, Urine 04/20/2026 04/20/2025, 03/03/2024, 12/11/2022, Additional history exists Lipid Panel 04/20/2026 04/20/2025, 060 12/2023, 12/19/2023, Additional history exists eGFR 04/20/2026 04/20/2025, 1011/2023, 03/03/2024, Additional history exists Dilated Eye Exam 12/07/2026 12/07/2024, 02/2024, 11/15/2022, Additional history exists Zoster Vaccine Completed 10/24/2019, 08/01, 08/10/2013 Medical Devices Implanted Type Area Photovoltaic Subcontractor Device Identifier Shelf Expiration Date Model / Serial / Lot [employer] [id number] Inspiris Resilia Leaflet Sewing Ring 27mm Valve Aortic Bovine - [id number] - [id number] Implanted:Qty: 1 on 07/24/2021 by Luis Enrique Marina Jr., MD at [facility] Other - see comments N/A: Aortic Valve [employer] 02/01/2025 [id number] / [id number] / Description:Aortic Valve Procedures Procedure Name Priority [...] hyperglycemia, with long-term current use of insulin ([facility]) POCT HEMOGLOBIN A1C Routine 04/07/2025 2 :50 PM CDT Type 2 diabetes mellitus with hyperglycemia, with long-term current use of insulin (HCC) DIABETES EYE EXAM Routine 12/07/2024 2:56 PM CDT from Last 3 Months or Most Recently Relevant to Health Maintenance Results * (ABNORMAL) Albumin Creatinine Ratio, Urine (04/20/2025 9:47 AM CDT) Pathologist [facility] Creatinine, ur 103 20 - 320 mg/dL [...] AM CDT 04/20/2025 9:48 AM CDT Narrative [facility] - 04/21/2025 6:45 AM CDT FASTING:YES FASTING: YES us Renetta Marcano NP LAB URINE ORDERABLES Katharine emily Result [facility] [address] [place] [address] * (ABNORMAL) Lipid panel (04/20/2025 9:47 AM CDT) Pathologist [facility] Cholesterol 142 <200 mg/dL [facility] HDL 36(L) > OR = 40 mg/dL [facility] Triglycerides 249(H) <150 mg/dL [facility] Comment: If a non-fasting specimen was collected, consider repeat triglyceride testing on a fasting specimen if clinically indicated. Montrell et al. J. of Clin. Lipidol. 2015;9:129-169. LDL 73 mg/dL (calc) [facility] Comment: Reference range: <100 Desirable range <100 mg/dL for primary prevention; <70 mg/dL for patients with CHD or diabetic patients with > or = 2 CHD risk factors. LDL-C is now calculated using the Savage-Trimble calculation, which is a validated novel method providing better accuracy than the Friedewald equation in the estimation of LDL-C. Savage SS et al. JORGE. 2013;310(19): 5910-9929 (http://education.[employer].Enersave/faq/TOV677) Chol/HDL ratio 3.9 <5.0 (calc) [facility] [...] CDT FASTING:YES FASTING: YES us Renetta Marcano VASCULAR SURGEON LAB BLOOD ORDERABLES Katharine diaz Result [facility] [address] [place] [address] * (ABNORMAL) Comprehensive metabolic panel (04/20/2025 9:47 [...] [facility] BUN/creat ratio SEE NOTE: 6 - 22 (calc) [facility] Comment: Not Reported: [...] CDT FASTING:YES FASTING: YES us Renetta Marcano VASCULAR SURGEON LAB BLOOD ORDERABLES Katharine l Result [facility] [address] [place] [address] * (ABNORMAL) POCT hemoglobin A1c (04/07/2025 2:50 PM CDT) Hemoglobin A1C, POC 6.6(A) 4.0 - 5.6 % Blood 04/07/2025 2:50 PM CDT us Renettajudah Marcano VASCULAR SURGEON POINT OF CARE TEST ORDERA BLES Final Result * (ABNORMAL) POCT glucose (04/07/2025 2:50 PM CDT) Glucose Blood, POC 161 Normal Fasting 70 - 100, Random <200 mg/dL Blood 04/07/2025 2:50 PM CDT us Renetta Marcano VASCULAR SURGEON POINT OF CARE TEST ORDERA BLES Final Result * DIABETES EYE EXAM (12/07/2024 2:56 PM CDT) us Historical Provider HEALTH MAINTENANCE Final Result from Last 3 Months or Most Recently Relevant to Health Maintenance Insurance [facility] [id number] [facility] [id number] [facility] [id number] [facility] [address] Advance Directives For more information, please contact: [phone] Documents on File Type Date Recorded Patient Multimedia Editor Expl anation ADVANCE DIRECTIVE 07/24/2021 7:02 AM Marisela r of Gage Maker-Medical * Full Code (Latest Code Status on File) Date Activated Date Inactivated Comments 08/11/2021 4:58 PM 08/29/2021 7:05 PM * Full Code Date Activated Date Inactivated Comments 07/24/2021 1:22 PM 08/01/2021 3:25 PM * Full Code Date Activated Date Inactivated Comments 07/24/2021 1:15 PM 07/24/2021 1:22 PM Care Teams Body Designer Relationship Specialty Start Date End Date Nils Alvarenga MD [address] [address] PCP - General Family Medicine 07/07/19 Kaushik Field MD [address] [facility] [address] [place] [address] Consulting Physician Cardiology 07/24/21 Luis Enrique Marina Jr., MD [address] [facility] [address] [place] [address] Surgeon Cardiothoracic Surgery 08/01/21 Miscellaneous, Not In File 08/29/21 Domonique Redman MD Fellow Endocrinology Diabetes & Metabolism 08/29/21
--- OUTSIDE RECORDS SUMMARY | 2025-05-11 12:51 | XMS_ITS | Clinical Summary ---
Author Organization [facility] Address [address] [place] [address] Care Team Providers Care Paint Grinder [employer] [place] Name Role Phone Nils Alvarenga MD Primary Care Provider [phone] Allergies Active Allergy Reactions Criticality Noted Date [...] insufficiency of both lower extremities Myocardial infarction ([facility]) Hypertensive heart disease Essential hypertension JAMEEL (obstructive sleep apnea) Diabetes ([facility]) Family History Relation Status Comments Father Mother [...] Most Recently Relevant to Health Maintenance Insurance [employer] [facility] [employer] [facility] Care Teams Paint Grinder [employer] Relationship Specialty Start Date End Date Nils Alvarenga MD [address] [facility] [address] [place] [address] PCP - General FAMILY PRACTICE 03/21/20
--- OUTSIDE RECORDS SUMMARY | 2025-05-11 12:51 | XMS_ITS | Encounter Summary ---
Author Organization [facility] Address [address] [place] [address] Care Team Providers Care Expense Analyst Name Role Phone Nils Alvarenga MD Primary Care Provider Kaushik Field MD Unavailable [phone] [place] MD, uLis Enrique Gonzalez Unavailable [phone] Miscellaneous, Not In File Unavailable Unava ilable Feroz, Is-Ivan Florentin BERRY Unavailable [phone] Reason for Visit * Reason Onset Date Comments Pat 05/07/2025 Encounter Details Date Type Department Care Team (Late st Contact Info) Description 05/07/2025 Telephone [facility] [address] [facility] [address], [place] [address] Renetta Marcano, SKI MAKER [address] [facility] [address] [place] [address] Pat Social History Tobacco Use Types Packs/Day Years [...] on file Legal Sex Male 8:54 AM 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 Pt stated that he didn't think so but last when he went to his PCP he was told that the fever can be because his Mounjaro and that is why he contact us, explain to him that we can not prescrine any antibiotics because it is not related to his Diabetes or Mounjaro. Pt was advise that if he continues with fever heneeds to go back to his PCP, emergency room or convenient care to F/U on that. Pt voice understanding and agree * Telephone Encounter - Sherin Solano - 05/10/2025 2:32 PM CDT Pt called back, stated he has felt terrible for the last 4 to 5 days & is running a fever of 102. Pt is asking for antibiotic or something, pt said he went to his pcp & had a test done, he don't have the flu or covid & they did a urine test. Pt said his pcp thinks it's from mounjaro. Ptstated they didn't do any blood work. * Telephone Encounter - Gretel Colon MA - 05/10/2025 9:11 AM CDT Pt informed of refill and Renetta's message. Pt voiced understanding. * Addendum Note - Renetta Marcano NP - 05/09/2025 8:46 PM CDTAddended by: RENETTA MARCANO on: 05/09/2025 08:46 PM Modules accepted: Orders * Telephone Encounter - Renetta Marcano NP - 05/09/2025 8:44 PM CDT Please call Mr Todd to let him know that I sent in the Mounjaro 12.5mg weekly to his [facility]. Please make him aware that he may not be able to fill it until he's due for next refill. Thank you * Telephone Encounter - Noy Mclaughlin MA - 05/07/2025 10:40 AM CDT Please review Pt's message and advise. Thank you Spoke with Pt to informed him we will get back to him on Saturday. Pt stated that he received a notification form Pharmacy stating that the Rx was changed. Pt advise to confirm dose before pick it up since we haven't change the dose yet. Pt voice understanding and agree. * Telephone Encounter - Sherin Solano - 05/07/2025 9:45 AM CDT Pt called, stated he is taking Mounjaro 15 mg, however, it is giving him diarrhea & a up set stomach, pt would like to change back to 12.5 mg, pt would like a RX called into [facility] location on file. documented in this encounter Plan of Treatment Not on file documented as of this encounter Visit Diagnoses Diagnosis Type 2 diabetes mellitus with hyperglycemia, with long-term current use of insulin (HCC)- Primary documented in this encounter Discontinued Medications Medication Sig Discontinue Reason Start Date End Da te tirzepatide (Mounjaro) 15 mg/0.5 mL pen injector injectionIndications:typ e 2 diabetes mellitus Inject 0.5 mL (15 mg total) under the skin once a week 04/07/2025 05/09/2025 documented as of this encounter Care Teams Expense Analyst Relationship Specialty Start Date End Date Nils Alvarenga MD [address] [place] [address] PCP - General Family Medicine 07/07/19 Kaushik Field MD [address] [place] [address] Consulting Physician Cardiology 07/24/21 Luis Enrique Marina Jr., MD [address] [place] [address] Surgeon Cardiothoracic Surgery 08/01/21 Miscellaneous, Not In File 08/29/21 Domonique Redman MD Fellow Endocrinology Diabetes & Metabolism 08/29/21 documented as of this encounter
[2025-05-11 13:44] LABS: Hematocrit 46.9 % (42.0-52.0); Hemoglobin 15.0 g/dL (14.0-18.0); Immature Granulocyte Percent A 0.3 % (0-0.5); Lymphocytes Absolute Auto 1.40 K/mm3 (0.9-3.2); Mean Corpuscular HGB Conc 32.0 g/dl (32-36); Mean Corpuscular Hemoglobin 26.1 pg (26-34); Mean Corpuscular Volume 81.6 fl (80-100); Nucleated Red Blood Cells Absolute Auto 0.000 K/mm3 (0.0-0.012); Nucleated Red Blood Cells Perc 0.0 % (0.0-0.2); Platelet Count Result 251 k/mm3 (150-375); Red Blood Count 5.75 M/mm3 (4.6-6.20); White Blood Count 7.5 K/mm3 (4.5-10.0)
[2025-05-11 14:04] LABS: Alanine Aminotransferase 25 U/L (6-50); Albumin Level 3.8 g/dL (3.5-5.1); Alkaline Phosphatase 76 U/L (38-126); Anion Gap 9 mmol/L (4-12); Aspartate Amino Transferase 31 U/L (17-59); Bilirubin,Total 0.6 mg/dL (0.2-1.3); Blood Urea Nitrogen 24 mg/dL (9-20); Calcium 9.4 mg/dL (8.4-10.2); Carbon Dioxide 26 mmol/L (22-30); Chloride 99 mmol/L (98-107); Estimated Glomerular Filt Rate > 60; Glucose 201 mg/dL (65-110); Potassium 4.0 mmol/L (3.4-5.0); Sodium 134 mmol/L (137-145); Total Protein 7.2 g/dL (6.3-8.2)
== END 2025-05-11 12:36 | disposition home or self-care (01) ==
LOC: ANHLAB 12:36
PROVIDERS: PCP Family Medicine; Visit Provider Physician Assistant
DX: R50.9 Fever, unspecified (principal); R19.7 Diarrhea, unspecified; R53.81 Other malaise; R53.83 Other fatigue
CPT/HCPCS: 36415; 71046; 80053; 85025

== ENCOUNTER 2025-08-25 00:27 | Day surgery (SDC) | payer OTHER, SELFPAY ==
[2025-08-11 08:21] VITALS: BMI 44.3
--- OUTSIDE RECORDS SUMMARY | 2025-08-25 00:29 | XMS_ITS | Clinical Summary ---
Author Organization [facility] Address [address] [place] [address] Care Team Providers Care Cold Mill Supervisor Name Role Phone Nils Alvarenga MD Primary Care Provider [phone] Allergies Active Allergy Reactions Criticality Noted Date [...] insufficiency of both lower extremities Myocardial infarction Hypertensive heart disease Essential hypertension JAMEEL (obstructive sleep apnea) Diabetes Family History Relation Status Comments Father Mother [...] 07/01, 06/28/2021, Additional history exists COVID-19 Vaccine ( season) 2025 Influenza Adult (#1) 2025 06/30/2021, 07/25/2017, 08/28/2015, Additional history exists Zoster Vaccines Completed 10/24/2019, 08/01, 08/10/2013 Hepatitis A Vaccines Aged Out No long er eligible based on patient's age to complete this topic Meningococcal B Vaccine Aged Out No l [...] Most Recently Relevant to Health Maintenance Insurance [facility] Care Teams Cold Mill Supervisor Relationship Specialty Start Date End Date Nils Alvarenga MD [address] [place] [address] PCP - General FAMILY PRACTICE 03/21/20
--- OUTSIDE RECORDS SUMMARY | 2025-08-25 00:30 | XMS_ITS | Clinical Summary ---
Author Organization [facility] [address] Address [address] [place] [address] Care Team Providers Care Assistant Sales Center Manager Name Role Phone Nils Alvarenga MD Primary Care Provider Kaushik Field MD Unavailable [phone] [place] MD, Luis Enrique Gonzalez Unavailable [phone] Miscellaneous, Not In File Unavailable Unava ilable Feroz, Is-Ivan Florentin BERRY Unavailable [phone] Allergies Active Allergy Reactions Criticality Noted Date Comments Clarithromycin Itching High 10/27/2018 Iodinated Contrast Media Itching,Other ( See comments) Low 09/29/2019 Reaction: Metformin Diarrhea Medium 03/06/2022 Medications chlorthalidon e 25 mg tabletIndicat ions:hyperten inge Take 1 tablet (25 mg total) by mouth every morning 2 09/07/[address] (PROTONIX) 40 mg EC tabletIndicat ions:Treatmen t of Non-Bleeding Gastric Disorder Take 1 tablet (40 mg total) by mouth every morning 5 07/19/20 19 Active eplerenone (INSPRA) 50 mg tabletIndicat ions:hyperten inge Take 1 tablet (50 mg total) by mouth 2 (two) times a day Active sertraline (ZOLOFT) 50 mg tabletIndicat ions:depressi on Take 1 tablet (50 mg total) by mouth every morning 01/23/20 20 Active multivitamin capsuleIndica tions:Vitamin Deficiency Prevention Take 1 capsule by mouth every morning Active loratadine (CLARITIN) 10 mg tabletIndicat ions:Allergic Rhinitis Take 1 tablet (10 mg total) by mouth every morning Active blood-glucose meter kit 1 kit 2 (two) times a day 1 kit 07/25/20 21 Active aspirin 81 mg enteric coated tablet Take 1 tablet (81 mg total) by mouth daily 30 tablet 11 08/01/20 21 026 Active carvediloL (COREG) 12.5 mg tablet Take 1 tablet (12.5 mg total) by mouth 2 (two) times a day with meals 60 tablet 1 08/01/20 21 026 Active potassium chloride ER (KLOR-CON) 20 mEq CR tablet Take 2 tablets (40 mEq total) by mouth daily 30 tablet 08/29/20 21 Active Additional Information Patient taking differently:40 mEq oral Daily,6 tablets daily, Reported on 08/17/2025 [employer] Verio test strips strip CHECK BLOOD GLUCOSE LEVEL UP TO FOUR TIMES DAILY DIRECTED 09/25/20 21 Active BD Maral 2nd Gen Pen Needle 32 gauge x 5/32 needle USE DIRECTED WITH INSULIN PEN EVERY DAY 02/21/20 22 Active Nystop powder APPLY TO FOLDS TWICE DAILY. 03/06/20 23 Active NIFEdipine XL 30 mg 24 hr tablet TAKE 3 TABLETS BY MOUTH EVERY MORNING 03/18/20 23 Active furosemide (LASIX) 20 mg tablet 06/16/20 24 Active FreeStyle Neeta 3 Plus Sensor deviceIndicat ions:Type 2 diabetes mellitus with hyperglycemia , with long-term current use of insulin (HCC) Change sensor every 15 days Dx: E11.65 2 each 04/07/20 25 Active tirzepatide (Mounjaro) 12.5 mg/0.5 mL pen injector injectionIndi cations:type 2 diabetes mellitus Inject 0.5 mL (12.5 mg total) under the skin once a week 6 mL 3 05/09/20 25 026 Active Jardiance 25 mg tabletIndicat ions:type 2 diabetes mellitus Take 1 tablet (25 mg total) by mouth daily 90 tablet 3 08/17/20 25 Active LANTUS 100 unit/mL (3 mL) pen for injectionIndi cations:Type 2 diabetes mellitus with hyperglycemia , with long-term current use of insulin ([facility]) ADMINISTER 40 UNITS UNDER THE SKIN EVERY NIGHT 15 mL 4 08/24/20 Active benzonatate (TESSALON) 100 mg capsule 04/14/20 24 025 Discontinued(No longer taking - Do not display on AVS) Jardiance 25 mg tabletIndicat ions:Type 2 diabetes mellitus with hyperglycemia , with long-term current use of insulin ([facility]) TAKE 1 TABLET(25 MG) BY MOUTH DAILY 90 tablet 3 12/11/19 25 025 Discontinued(Re order) insulin glargine (LANTUS) 100 unit/mL (3 mL) pen for injection Inject 40 Units under the skin nightly 15 mL 4 03/31/20 25 025 Discontinued Active Problems Problem Noted Date Diagnosed Date Class 3 severe obesity due t o excess calories with serious comorbidity and body mass index (BMI) of 40.0 to 44.9 in adult 11/12/2024 Assessment & Plan (11/12/2024 11:02 AM CHROME PLATER HELPER): Discussed healthy diet and importance of regular physical activity (20- 30min/day, 150min/wk). Currently taking Mounjaro. Increased from 10mg to 12.5mg weekly. Has not yet had any weight loss with mounjaro. Morbid (severe) obesity due to excess calories 0 03/06/2022 Body mass index 40.0-44.9, adult ([facility]) 03/06 H/O prosthetic aortic valve replacement 12/13/19 22 Drainage from wound 08/11/2021 Assessment & Plan (08/27/2021 12:17 PM CHROME PLATER HELPER): Placed on vancomycin on admission New cultures [...] 08/11/2021 Assessment & Plan (08/27/2021 12:19 PM CHROME PLATER HELPER): Continue Tylenol + Oxycodone + Lidoderm Type 2 diabetes mellitus 07/26/2021 Assessment & Plan (08/17/2025 10:57 AM CHROME PLATER HELPER): Chronic problem. Controlled. A1c improved from 6.6% 04/07/25 to now 6.4% wo hypoglycemia. Encouraged him to find a gym with indoor pool to help exercise d/t chronic knee pain with weight bearing. Current medications: Jardiance 25mg daily Mounjaro 12.5 mg weekly Lantus 45 units at bedtime UTD on labs UTD on DM eye exam (12/07/[address] [facility]). Strive for regular exercise (30min most days) and diet (get at least 4-5 servings of fruit and veggies daily, avoid processed foods, increase lean protein intake and decrease carb portions as well as fruit juices, regular soda & desserts). Watch carbs and simple sugars. Check the blood sugar twice daily. Check blood sugars: FSL 3+ Check the feet daily for skin breakdown and infection. Assessment & Plan (04/07/2025 3:28 PM CDT): [...] UTD on DM eye exam (12/07/[address] [facility]). Strive for regular exercise (30min [...] infection. Assessment & Plan (11/12/2024 11:05 AM CHROME PLATER HELPER): Chronic problem. Controlled. A1c improved from 7.1% [...] (07/30/2021 10:00 AM CDT): Endocrine consulted Sent [place] check on Victoza and Jardiance both $20 @ [place] Diabetic Education Monitor POC and adjust insulin as needed for glycemic control Discharge recommendations: - Both Victoza and Jardiance $20 copay - Start 0.6 mg Victoza at discharge; recommend starting Jardiance as outpatient - Stop Januvia Assessment & Plan (07/28/2021 3:58 PM CDT): Endocrine consulted Sent [place] check on Victoza and Jardiance both $20 @ [facility] Diabetic Education Monitor POC and adjust insulin as needed for glycemic control Discharge recommendations: - Both Victoza and Jardiance $20 copay - Start 0.6 mg Victoza at discharge; recommend starting Jardiance as outpatient - Stop Januvia Assessment & Plan (07/27/2021 9:37 AM CDT): Endocrine consulted Sent [place] check on Victoza and Jardiance both $20 @ DC Diabetic Education Monitor POC and adjust insulin as needed for glycemic control Discharge recommendations: - Both Victoza and Jardiance $20 copay - Start 0.6 mg Victoza at discharge; recommend starting Jardiance as outpatient - Stop Januvia Assessment & Plan (07/26/2021 12:13 PM CDT): Endocrine consulted Sent [place] check on Victoza and Jardiance both $20 @ DC Diabetic Education Monitor POC and adjust insulin as needed for glycemic control Aortic valve insufficiency 09/02/2020 Assessment & Plan (08/27/2021 12:17 PM CHROME PLATER HELPER): S/p bio AVR 07/24/2021 On ASA, Coreg, [...] clinical suspicion of IE. Trace TR. Mild MS. 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 [...] PT/OT Aggressive pulmonary toilet Hypertension associated with type 2 diabetes loreta litus 09/29/2019 Assessment & Plan (08/17/2025 10:41 AM CHROME PLATER HELPER): Chronic problem. Controlled on current carvedilol 12.5mg bid, nifedipine XL 90mg daily, lasix 20mg daily, chlorthalidone 25mg daily Assessment & Plan (04/07/2025 3:08 PM CDT): Chronic problem. Controlled on current carvedilol 12.5mg bid, nifedipine XL 90mg daily, lasix 20mg daily, chlorthalidone 25mg daily Assessment & Plan (11/12/2024 10:46 AM CHROME PLATER HELPER): Chronic problem. Controlled on current carvedilol 12.5mg [...] [place] Assessment & Plan (08/27/2021 12:16 PM CHROME PLATER HELPER): VS q 4h Continue Coreg, Nifedipine , [...] metformin Assessment & Plan (08/06/2023 4:13 PM CHROME PLATER HELPER): Hba1c was Lab Results Component Value Date [...] the office. Send me a message via Smart Checkout in 6 weeks to see how you are doing with the Ozempic, so I can send the prescription Assessment & Plan (08/28/2021 1:55 PM CHROME PLATER HELPER): Endocrine consulted Continue Lantus and mealtime Lispro bolus and SSI POC BGM Carbohydrate consistent diet 08/25 continue lantus 20 units every am [place] check with mobile pharmacy Pt insurance will cover basaglar or levemir for $ 20 /month Endocrine Discharge Medication Recommendations: Basaglar daily in the AM, 20 units Victoza 0.6 mg daily X 10 days, if he tolerates this dose OK, titrate up to 1.2 mg daily Jardiance 25 mg daily Encounters Date Type Department Care Team Description 08/17/2025 10:30 AM CHROME PLATER HELPER Office Visit [facility] Diabetes and Endocrinology [address] [place] [id number] Renetta Marcano, AUG[place] Type 2 diabetes mellitus with hyperglycemia, with long-term current use of insulin (HCC) (Primary Dx); Hypertension associated with type 2 diabetes mellitus (HCC) 06/29/2025 10:00 AM CDT Office Visit [facility] Cardiology at [address] [place] [phone] Kaushik Field MD H/O prosthetic aortic valve replacement (Primary Dx) from Last 3 Months Immunizations Immunization Administration Dates Next Due Influenza, Split 07/01/2013 Influenza, Trivalent, IM (MDV) 08/28/2015 Influenza, Trivalent, Preservative Free, Intramu scular 07/25/2017 Influenza, Unspecified 06/30/2021 ZOSTER LIVE 08/10/2013 ZOSTER Recombinant 10/24/2019,08/22/2019 Surgical History Surgery Date Site/Laterality Comments CARDIAC CATHETERIZATION 10/31/2018 - 11/27/2018 at [facility] CARPAL TUNNEL RELEASE Bilateral Medical History Medical History Date Comments Hypertension Diabetes mellitus Acid indigestion Sleep apnea Delayed emergence from [...] on file Legal Sex Male 8:54 AM CHROME PLATER HELPER Gender Identity Not on file Sexual Orientation Not on file Last Filed Vital Signs Vital Sign Reading Time Taken Comments Blood Pressure 118/64 08/17/2025 10:20 AM CHROME PLATER HELPER Pulse 79 08/17/2025 10:20 AM CHROME PLATER HELPER Temperature 36.9 C (98.4 F) 10/13/2021 3:01 PM CHROME PLATER HELPER Respiratory Rate 18 08/17/2025 10:2 0 AM CHROME PLATER HELPER Oxygen Saturation 95% 06/29/2025 10: 00 AM CDT Inhaled Oxygen Concentration - - Weight 136.6 kg (301 lb 1.6 oz) 025 10:20 AM CHROME PLATER HELPER Height 180.3 cm (5' 10.98) 08/17/2025 10:20 AM CHROME PLATER HELPER Body Mass Index 42.01 08/17/2025 10:20 AM CHROME PLATER HELPER Plan of Treatment Health Maintenance Due Date Last Done Comments Colon Cancer Screening-Colonoscopy 1950 Hepatitis C Screening 1950 DTaP/Tdap/Td Vaccine (1 - Tdap) 1963 Hepatitis B Screening 1970 Pneumococcal vaccine 65+ (1 of 2 - PCV) 1971 Well Visit 65+ 2017 Depression Screening 03/03/2025 03/03/2024, 07/03/2022, 03/06/2022 Fall Risk Assessment 03/03/2025 03/03/2024, 08/29/20 21 Covid-19 Vaccine (3 - 2024-2 6 season) 2025 12/05/2020, 11/07/2020 Influenza Vaccine (#1) 2025 , 07/25/2017, 08/28/2015, Additional history exists Foot Exam 11/12/2025 11/12/2024, 03/2023, 03/06/2022 Hemoglobin A1C 02/14/2026 08/17/2025, 07/0 05/2025, 11/12/2024, Additional history exists Albumin Creatinine Ratio, Urine 04/20/2026 04/20/2025, 03/03/2024, 12/11/2022, Additional history exists Lipid Panel 04/20/2026 04/20/2025, 0 12/2023, 12/19/2023, Additional history exists eGFR 04/20/2026 04/20/2025, 1011/2023, 03/03/2024, Additional history exists Dilated Eye Exam 12/07/2026 12/07/2024, 02/2024, 11/15/2022, Additional history exists Zoster Vaccine Completed 10/24/2019, 08/01, 08/10/2013 Medical Devices Implanted Type Area Head Sugar Reprocess Operator Device Identifier Shelf Expiration Date Model / Serial / Lot [employer] [id number] Inspiris Resilia Leaflet Sewing Ring 27mm Valve Aortic Bovine - [id number] - [id number] Implanted:Qty: 1 on 07/24/2021 by Luis Enrique Marina Jr., MD at [facility] Other - see comments N/A: Aortic Valve [employer] 02/01/2025 [id number] / [id number] / Description:Aortic Valve Procedures Procedure Name Priority Date/Time Associated Diagnosis Comments POCT HEMOGLOBIN A1C Routine 08/17/2025 1 0:32 AM CHROME PLATER HELPER Type 2 diabetes mellitus with hyperglycemia, with long-term current use of insulin (HCC) POCT GLUCOSE Routine 08/17/2025 10:28 AM CHROME PLATER HELPER Type 2 diabetes mellitus with hyperglycemia, with long-term current use of insulin (HCC) COMPREHENSIVE METABOLIC PANEL Routine 04/20/2025 9:47 AM CDT Type 2 diabetes mellitus with hyperglycemia, with long-term current use of insulin (HCC) Hypertension associated with diabetes (HCC) LIPID PANEL Routine 04/20/2025 9:47 AM CDT Type 2 diabetes mellitus with hyperglycemia, with long-term current use of insulin (HCC) ALBUMIN CREATININE RATIO, URINE Routine 04/20/2025 9:47 AM CDT Type 2 diabetes mellitus with hyperglycemia, with long-term current use of insulin (HCC) HM DIABETES EYE EXAM Routine 12/07/2024 from Last 3 Months or Most Recently Relevant to Health Maintenance Results * (ABNORMAL) POCT hemoglobin A1c (08/17/2025 10:32 AM CHROME PLATER HELPER) Hemoglobin A1C, POC 6.4(A) 4.0 - 5.6 % Blood 08/17/2025 10:3 2 AM CHROME PLATER HELPER us Renetta Marcano NP POINT OF CARE TEST ORDERA BLES Final Result * (ABNORMAL) POCT glucose (08/17/2025 10:28 AM CHROME PLATER HELPER) Glucose Blood, POC 203 Normal Fasting 70 - 100, Random <200 mg/dL Blood 08/17/2025 10:2 8 AM CHROME PLATER HELPER us Renetta Marcano NP POINT OF CARE TEST ORDERA BLES Final Result * (ABNORMAL) Albumin Creatinine Ratio, Urine (04/20/2025 [...] CDT FASTING:YES FASTING: YES us Renetta Marcano AIRFRAME DESIGN ENGINEER LAB URINE ORDERABLES Katharine l Result [facility] [address] [phone] * (ABNORMAL) Lipid panel (04/20/2025 9:47 AM CDT) Cholesterol 142 <200 mg/dL [facility] [...] factors. LDL-C is now calculated using the Savage-Nai calculation, which is a validated novel method providing better accuracy than the Friedewald equation in the estimation of LDL-C. Savage BOUDREAUX et al. JORGE. 2013;310(19): 8656-9849 (http://education.[employer]/faq/LTA276) Chol/HDL ratio 3.9 <5.0 (calc) [facility] [...] NP LAB BLOOD ORDERABLES Katharine l Result [facility] [address] [phone] * (ABNORMAL) Comprehensive metabolic panel (04/20/2025 9:47 [...] CDT FASTING:YES FASTING: YES us Renetta Marcano AIRFRAME DESIGN ENGINEER LAB BLOOD ORDERABLES Katharine diaz Result [facility] [address] [phone] * DIABETES EYE EXAM (12/07/2024) SCRIBED DIABETIC DILATED EYE EXAM Normal 12/07/2024 Historical Provider HEALTH MAINTENANCE Edited Result - Final from Last 3 Months or Most Recently Relevant to Health Maintenance Insurance [facility] [id number] [facility] [address] [place] [id number] [facility] [address] Advance Directives For more information, please contact: [phone] Documents on File Type Date Recorded Patient Estate Tax Examiner Expl anation ADVANCE DIRECTIVE 07/24/2021 7:02 AM Marisela r of Interactive Media Marketing Specialist-Medical * Full Code (Latest Code Status on File) Date Activated Date Inactivated Comments 08/11/2021 4:58 PM 08/29/2021 7:05 PM * Full Code Date Activated Date Inactivated Comments 07/24/2021 1:22 PM 08/01/2021 3:25 PM * Full Code Date Activated Date Inactivated Comments 07/24/2021 1:15 PM 07/24/2021 1:22 PM Care Teams Assistant Sales Center Manager Relationship Specialty Start Date End Date Nils Alvarenga MD [address] [facility] [address] [place] [address] PCP - General Family Medicine 07/07/19 Kaushik Field MD [address] [place] [id number] Consulting Physician Cardiology 07/24/21 Luis Enrique Marina Jr., MD [address] [address] Surgeon Cardiothoracic Surgery 08/01/21 Miscellaneous, Not In File 08/29/21 Domonique Redman MD Fellow Endocrinology Diabetes & Metabolism 08/29/21
--- OUTSIDE RECORDS SUMMARY | 2025-08-25 00:30 | XMS_ITS | Encounter Summary ---
Author Organization [facility] Address [address] [place] [address] Care Team Providers Care Rn Unit Manager Name Role Phone Nils Alvarenga MD Primary Care Provider [phone] Encounter Details Date Type Department Care Team (Late st Contact Info) Description 07/13/2020 Abstract [facility] at [facility], [address] [address] [place] Social History Tobacco Use [...] Result * CBC (OUTSIDE LAB) (03/03/2020) Pathologist [facility] WBC 5.1 HGB 15.3 HCT 46 PLT 224 03/03/2020 us Doc [facility] Abstract LAB-OUTSIDE/ABSTRACTED Final Result * THYROID STIM HORMONE, TSH (03/03/2020) [facility] TSH 1.94 03/03/2020 us Doc [facility] Abstract LABORATORY Final Result * HEMOGLOBIN, GLYCOSYLATED (03/03/2020) [facility] HGB A1C 6.9 % 03/03/2020 us Doc [facility] Abstract LABORATORY Final Result * (ABNORMAL) COMPREHENSIVE METABOLIC PANEL (03/03/2020) [facility] SODIUM S/P/B 142 POTASSIUM S/P/B 3.6 [...] LABORATORY Final Result * LIPID PANEL (03/03/2020) [facility] CHOLESTEROL 126 HDL 33 TRIGLYCERIDES 151 NON HDL CHOLESTEROL 93 LDL (CALCULATED) 70 03/03/2020 us Doc [facility] LABORATORY Final Result documented in this encounter Visit Diagnoses Not on filedocumented in this encounter Care Teams Rn Unit Manager Relationship Specialty Start Date End Date Nils Alvarenga MD [address] [place] [address] PCP - General FAMILY PRACTICE 03/21/20 documented as of this encounter
[2025-08-25 12:38] VITALS: BP 143/91; PULSE 81; RESP 18; TEMP 36.4; O2SAT 98; BMI 43.6
--- NOTE | 2025-08-25 12:43 | SUR.PREOP ---
Patient has dexcom monitor. Blood sugar reading is currently 164 per dexcom monitor. No new orders at this time.
[2025-08-25] MEDS: LACTATED RINGERS 1,000 ML 150 ML IV CONT (12:49)
--- NOTE | 2025-08-25 13:35 | WPDANESEPPF ---
Anes - Initial Pre Proc Eval Procedure: Operation Date: 08/25/25 13:30 Proposed Procedures p Screening Colonoscopy - Ehsan Butler MD Date/Time: 08/25/25 13:35 Surgeon: Ehsan Butler MD Pre Op Diagnosis: Screening Patient Data Age: 74 Gender: M Height: 1.75 m Weight: 134 kg Last Vital Signs Temp 97.6 F 08/25/25 12:38 Pulse 81 08/25/25 12:38 Resp 18 08/25/25 12:38 BP 143/91 H 08/25/25 12:38 Pulse Ox 98 08/25/25 12:38 O2 Del Method Room Air 08/25/25 12:38 Allergies Allergy/AdvReac Type Severity Reaction Status Date / Time metformin AdvReac Intermediate diarrhea Verified 08/25/25 12:35 clarithromycin AdvReac Mild Itching Verified 08/25/25 12:35 Iodinated Contrast Media AdvReac Mild Itching Verified 08/25/25 12:35 Iodine and Iodide Containing AdvReac Mild Itching Verified 08/25/25 12:35 Produc Home Medications ?Medication ?Instructions ?Recorded ?Confirmed ?Type multivitamin 1 tablet PO DAILY 06/13/21 08/25/25 History aspirin 81 mg tablet,delayed 81 mg PO DAILY 08/07/21 08/25/25 History release (Adult Low Dose Aspirin) loratadine 10 mg tablet 10 mg PO DAILY 09/04/21 08/25/25 History empagliflozin 25 mg tablet 25 mg PO DAILY #30 tabs 01/08/22 08/25/25 Rx (Jardiance) pen needle, diabetic 32 gauge x #100 ea 02/12/24 07/27/25 Rx (BD Maral 2nd Gen Pen Needle) pantoprazole 40 mg tablet,delayed See Rx Instructions .Route 03/26/24 08/25/25 Rx release .COMPLEX #180 tabs flash glucose sensor (FreeStyle 05/23/24 07/27/25 History Neeta 2 Sensor kit) chlorthalidone 25 mg tablet 25 mg PO DAILY #90 tabs 05/27/25 08/25/25 Rx eplerenone 50 mg tablet See Rx Instructions .Route 05/27/25 08/25/25 Rx .COMPLEX #180 tabs insulin glargine 100 unit/mL (3 45 unit subcut QAM 07/27/25 08/25/25 History mL) subcutaneous pen (Lantus Solostar U-100 Insulin) potassium chloride 20 mEq See Rx Instructions PO .COMPLEX 07/27/25 08/25/25 History tablet,extended release tirzepatide 12.5 mg/0.5 mL 12.5 mg subcut WEEKLY 07/27/25 08/25/25 History subcutaneous pen injector (Mounjaro) furosemide 20 mg tablet 20 mg PO QAM #90 tabs 08/23/25 08/25/25 Rx nifedipine 30 mg tablet,extended 90 mg (3 x 30 mg) PO QAM #270 tabs 08/23/25 08/25/25 Rx release 24 hr (Procardia XL) carvedilol 12.5 mg tablet See Rx Instructions .Route 08/25/25 08/25/25 Rx .COMPLEX #180 tabs sertraline 50 mg tablet See Rx Instructions .Route 08/25/25 08/25/25 Rx .COMPLEX #90 tabs Patient hx anesthesia problems: none Family hx anesthesia problems: none Results Review: All pre-operative results and documents have been reviewed as part of the pre-operative evaluation. [facility] Past Medical History Medical History Heart valve disorder Hypokalemia Abdominal pain, acute, epigastric Elevated troponin CAD (coronary artery disease) Acalculous cholecystitis JAMEEL (obstructive sleep apnea) Diabetic nephropathy Lumbar degenerative disc disease Type 2 diabetes mellitus Hemoglobin A1c was 7.5% in February 2020. Suspected sleep apnea Mild coronary artery disease Cardiac catheterization October 2018 which demonstrated 20% stenosis a branch of the LAD otherwise had normal coronary arteries. Diabetic peripheral neuropathy Bilateral cataracts Maturing. Aortic regurgitation s/p bioprosthetic AVR Restrictive lung disease Nonerosive esophageal reflux disease Noted on EGD from July 2019. Schatzki's ring Noted on EGD performed by Dr. Hunter July 2019. Dysphagia Depression Diverticulosis of intestine, part unspecified, without perforation or abscess with bleeding With last colonoscopy: 2014 Venous insufficiency of both lower extremities Surgical History Surgical History History of aortic valve replacement History of repair of right rotator cuff (~1997) History of carpal tunnel release (~2004) Status post arthroscopy of left knee Family History Family History Father Diabetes mellitus Lung cancer Mother Alzheimer's dementia Hypertension Sibling Renal cancer Hypertension Lymphoma Social History Social History Social History: Surrogate decision maker: Doris Miller. Code status: Full code. Smoking status: Never smoker Second hand tobacco smoke exposure: No Alcohol intake: never Substance use: never Substance use type: does not use Current Housing: Decline to Answer Concerned About Future Housing: Decline to Answer Difficulty Paying Gas/Electric Bills: Decline to Answer Difficulty Paying for Meds: Decline to Answer Currently Unemployed: Decline to Answer Education: Decline to Answer Difficulty w/ Childcare or Family Care: Decline to Answer Living arrangements: alone Additional living arrangements comments: He is single and has no children. 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 Gender identity (if verbalized by the patient): Male Spiritual care concerns: No Anes - Eval Final PreProcedure Day of Procedure 08/25/25 13:35 Patient weight: obese Lungs: normal air movement Airway: Mallampati scale class II Neurological: alert and oriented Last oral intake: >/= 8 hours ASA classification: III Emergent: no Anesthetic plan: proceed Anesthesia type and monitoring: general GIVS and standard monitoring Results Review: All pre-operative results and documents have been reviewed as part of the pre-operative evaluation. Notes from cardio reviewed after pts AVR. Pt doing well from cardiac standpoint. Informed Consent: The patient's anesthetic plan and its attendant risks and benefits were discussed with the patient/family/POA. Questions were solicited and answers provided to the satisfaction of the patient/family/POA.
--- NOTE | 2025-08-25 13:46 | PM.IMHP ---
H&P: HPI History of Present Illness Date/Time: 08/25/25 13:46 Chief Complaint: Screening colonoscopy Narrative: This is the patient's 2nd screening colonoscopy. There are no GI symptoms and there is no family history of colorectal cancer. Review of Systems Review of Systems: All systems reviewed & are unremarkable except as noted in HPI and below [facility] Past Medical History Medical History Heart valve disorder Hypokalemia Abdominal pain, acute, epigastric Elevated troponin CAD (coronary artery disease) Acalculous cholecystitis JAMEEL (obstructive sleep apnea) Diabetic nephropathy Lumbar degenerative disc disease Type 2 diabetes mellitus Hemoglobin A1c was 7.5% in February 2020. Suspected sleep apnea Mild coronary artery disease Cardiac catheterization October 2018 which demonstrated 20% stenosis a branch of the LAD otherwise had normal coronary arteries. Diabetic peripheral neuropathy Bilateral cataracts Maturing. Aortic regurgitation s/p bioprosthetic AVR Restrictive lung disease Nonerosive esophageal reflux disease Noted on EGD from July 2019. Schatzki's ring Noted on EGD performed by Dr. Hunter July 2019. Dysphagia Depression Diverticulosis of intestine, part unspecified, without perforation or abscess with bleeding With last colonoscopy: 2014 Venous insufficiency of both lower extremities Surgical History Surgical History History of aortic valve replacement History of repair of right rotator cuff (~1997) History of carpal tunnel release (~2004) Status post arthroscopy of left knee Family History Family History Father Diabetes mellitus Lung cancer Mother Alzheimer's dementia Hypertension Sibling Renal cancer Hypertension Lymphoma Social History Social History Social History: Surrogate decision maker: Doris Miller. Code status: Full code. Smoking status: Never smoker Second hand tobacco smoke exposure: No Alcohol intake: never Substance use: never Substance use type: does not use Current Housing: Decline to Answer Concerned About Future Housing: Decline to Answer Difficulty Paying Gas/Electric Bills: Decline to Answer Difficulty Paying for Meds: Decline to Answer Currently Unemployed: Decline to Answer Education: Decline to Answer Difficulty w/ Childcare or Family Care: Decline to Answer Living arrangements: alone Additional living arrangements comments: He is single and has no children. 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 Gender identity (if verbalized by the patient): Male Spiritual care concerns: No Meds Home Medications and Allergies Home Medications ?Medication ?Instructions ?Recorded ?Confirmed ?Type multivitamin 1 tablet PO DAILY 06/13/21 08/25/25 History aspirin 81 mg tablet,delayed 81 mg PO DAILY 08/07/21 08/25/25 History release (Adult Low Dose Aspirin) loratadine 10 mg tablet 10 mg PO DAILY 09/04/21 08/25/25 History empagliflozin 25 mg tablet 25 mg PO DAILY #30 tabs 01/08/22 08/25/25 Rx (Jardiance) pen needle, diabetic 32 gauge x #100 ea 02/12/24 07/27/25 Rx /32 (BD Maral 2nd Gen Pen Needle) pantoprazole 40 mg tablet,delayed See Rx Instructions .Route 03/26/24 08/25/25 Rx release .COMPLEX #180 tabs flash glucose sensor (FreeStyle 05/23/24 07/27/25 History Neeta 2 Sensor kit) chlorthalidone 25 mg tablet 25 mg PO DAILY #90 tabs 05/27/25 08/25/25 Rx eplerenone 50 mg tablet See Rx Instructions .Route 05/27/25 08/25/25 Rx .COMPLEX #180 tabs insulin glargine 100 unit/mL (3 45 unit subcut QAM 07/27/25 08/25/25 History mL) subcutaneous pen (Lantus Solostar U-100 Insulin) potassium chloride 20 mEq See Rx Instructions PO .COMPLEX 07/27/25 08/25/25 History tablet,extended release tirzepatide 12.5 mg/0.5 mL 12.5 mg subcut WEEKLY 07/27/25 08/25/25 History subcutaneous pen injector (Pat) furosemide 20 mg tablet 20 mg PO QAM #90 tabs 08/23/25 08/25/25 Rx nifedipine 30 mg tablet,extended 90 mg (3 x 30 mg) PO QAM #270 tabs 08/23/25 08/25/25 Rx release 24 hr (Procardia XL) carvedilol 12.5 mg tablet See Rx Instructions .Route 08/25/25 08/25/25 Rx .COMPLEX #180 tabs sertraline 50 mg tablet See Rx Instructions .Route 08/25/25 08/25/25 Rx .COMPLEX #90 tabs Allergies Allergy/AdvReac Type Severity Reaction Status Date / Time metformin AdvReac Intermediate diarrhea Verified 08/25/25 12:35 clarithromycin AdvReac Mild Itching Verified 08/25/25 12:35 Iodinated Contrast Media AdvReac Mild Itching Verified 08/25/25 12:35 Iodine and Iodide Containing AdvReac Mild Itching Verified 08/25/25 12:35 Produc Vital Signs Vital Signs - 24 hr 08/25/25 12:38 Temperature 97.6 F Pulse Rate 81 Respiratory Rate 18 Blood Pressure 143/91 H Pulse Oximetry 98 Oxygen Delivery Room Air Exam Const: General: cooperative and healthy appearing Resp: Effort & Inspection: normal respiratory effort and able to speak in complete sentences Auscultation: clear to auscultation bilaterally Cardio: Rate: regular rate Rhythm: regular rhythm GI: Inspection: normal to inspection GI Palp: No No hepatosplenomegaly present Auscultation: normal bowel sounds Rectal Exam: deferred Skin: General skin exam: normal color Psych: Appearance: grossly normal Mental Status: mental status grossly normal Assessment and Plan Assessment and plan (1) Encounter for screening colonoscopy: Code(s): Z12.11 - Encounter for screening for malignant neoplasm of colon Status: Acute Assessment and Plan: The patient is deemed a good candidate for the procedure. Consent signed. Will proceed.
--- NOTE | 2025-08-25 14:00 | S_PTH ---
PATIENT: Sharif Todd LOC: [facility] U#:[id number] AGE/SX: 74/M ROOM: RE08/25/[address]: Ehsan Butler MD : 1950 BED: DIS: 08/25/2025 SPEC #: [id number] RECD: 08/25/25 14:38 STATUS: NICOLASA REQ #: [id number] MIKE: 08/25/25 14:[address]: Ehsan Butler DEPT: [facility] Surgical RECD BY: Kacy Oreilly ENTERED: 08/25/25 14:38 SP TYPE: Surgical OTHR DR: Nils Alvarenga MD Tissues: A - Colon Polypectomy Procedures: Hematoxylin and Eosin Stain Gross and Microscopic Level 4
[2025-08-25 14:12] VITALS: BP 118/80; PULSE 74; RESP 20; O2SAT 96
[2025-08-25 14:22] VITALS: BP 120/80; PULSE 75; RESP 20; O2SAT 93
[2025-08-25 14:32] VITALS: BP 114/81; PULSE 70; RESP 20; O2SAT 96
== END 2025-08-25 14:42 | disposition home or self-care (01) ==
PROVIDERS: PCP Family Medicine; Referring Provider Physician Assistant; Visit Provider Internal Medicine Gastroenterology
PROC: 0DJD8ZZ Inspection of Lower Intestinal Tract, Via Natural or Artificial Opening Endoscopic (ICD-10-PCS; CPT 45378; principal; 2025-08-25 13:30)
DX: Z12.11 Encounter for screening for malignant neoplasm of colon (principal); D12.3 Benign neoplasm of transverse colon; K57.30 Diverticulosis of large intestine without perforation or abscess without bleeding; E87.6 Hypokalemia; I25.10 Atherosclerotic heart disease of native coronary artery without angina pectoris; G47.33 Obstructive sleep apnea (adult) (pediatric); E11.21 Type 2 diabetes mellitus with diabetic nephropathy; E11.42 Type 2 diabetes mellitus with diabetic polyneuropathy; I35.1 Nonrheumatic aortic (valve) insufficiency; J98.4 Other disorders of lung; F32.A Depression, unspecified; M51.369 Other intervertebral disc degeneration, lumbar region without mention of lumbar back pain or lower extremity pain; E66.9 Obesity, unspecified; Z68.41 Body mass index [BMI] 40.0-44.9, adult; Z79.82 Long term (current) use of aspirin; Z79.4 Long term (current) use of insulin; Z79.84 Long term (current) use of oral hypoglycemic drugs; Z79.85 Long-term (current) use of injectable non-insulin antidiabetic drugs; Z99.89 Dependence on other enabling machines and devices; Z98.890 Other specified postprocedural states; Z95.2 Presence of prosthetic heart valve; Z87.19 Personal history of other diseases of the digestive system; Z86.718 Personal history of other venous thrombosis and embolism; Z80.1 Family history of malignant neoplasm of trachea, bronchus and lung; Z80.51 Family history of malignant neoplasm of kidney; Z80.7 Family history of other malignant neoplasms of lymphoid, hematopoietic and related tissues
CPT/HCPCS: 45385; 88305; J2003; J2704; J7120